=== PATIENT | male | born 1955 | race Caucasian/White ===

== ENCOUNTER 2019-08-15 09:05 | Day surgery (SDC) | payer MEDICARE, BC, SELFPAY ==
--- NOTE | 2019-08-14 11:51 | ECG_ITS ---
Measurements Intervals [place] Rate: 69 P: 161 IL: 114 QRS: 222 QRSD: 202 T: 50 QT: 441 QTc: 476 ELECTRONIC ATRIAL PACEMAKER ELECTRONIC VENTRICULAR PACEMAKER ABNORMAL RHYTHM ECG Compared to ECG 05/22/2019 11:42:27 No significant changes Electronically Signed On 08-14-2019 20:13:11 FIRE PILOT by Hussain Haynes M.D. [id number]
[2019-08-14 12:06] VITALS: BMI 29.1
--- NOTE | 2019-08-14 12:32 | ANES.PREANES ---
Pre-Anesthetic Assessment Pre-Anesthetic Assessment: Height/Weight: Height 1.83 m Weight 97.522 kg Preop Diagnosis: Left CTS Proposed Procedure: Operation Date: 08/15/19 11:45 Proposed Procedures p Median Nerve Release(Left) - Jamar Woodward MD Social: Social History: No alcohol and No tobacco Exam: Pre-Anes Outpt Exam: alert, oriented x 3, clear to auscultation bilaterally and regular rate & rhythm Airway: Submandibular: WNL Cervical ROM: WNL MP: 2 Pulmonary: Pulmonary: None reported CV/HEM: CV/HEM: HTN : : None reported Hepatic: Hepatic: None reported GI: GI: None reported Metabolic: Metabolic: None reported Musc/skel: Musc/skel: Lower Back Pain and OA/DJD Neuropsych: Neuropsych: None reported Anesthetic Plan: ASA status: III Anesthesia: Anesthesia Evaluation and MAC Risk of > 500 ml blood loss (7ml/kg in children): No Data Anesthesia Cardiac Studies: No Data to Display
[2019-08-15 09:36] VITALS: BP 136/86; PULSE 79; RESP 18; TEMP 36.3; O2SAT 93
[2019-08-15] MEDS: sodium chloride 0.9% 1,000 ML 30 ML IV (10:34)
--- NOTE | 2019-08-15 11:17 | P.OP_ITS ---
Operative Report Date of procedure: 08/15/19 Pre-op Diagnosis: Median nerve entrapment at left wrist Post-op diagnosis: same Procedure Done: Open release of the median nerve at the left wrist. Pathology: none sent Surgeon: Jamar Woodward Anesthesia: MAC and Local Estimated blood loss: Minimal Complications: None. Condition: stable Disposition: same day Brief History: The patient is a 63-year-old male with symptomatic, electrodiagnostically confirmed median nerve entrapment at the left wrist. Electrodiagnostic studies suggested moderate-severe nerve entrapment. Conservative management failed to provide adequate lasting symptom relief. He had previously undergone open release of the median nerve at the right wrist, with good results. After review of the diagnostic and treatment options with the risks/potential benefits/rationale for each, the patient requested to proceed with open release of the median nerve at the left wrist. Procedure: After routine preoperative evaluation and informed consent were obtained, the patient was taken to the Operating Room and positioned supine on the operating table. Anesthesia personnel monitored the patient, and maintained intravenous sedation. The left upper extremity was extended on an arm board. The proposed skin incision was marked with a sterile skin marker, beginning near the wrist crease and extending distally along portions of a palmar crease to the mid palm. The left upper extremity was scrubbed with Betadine and prepped with DuraPrep from the fingertips to the axilla. A sterile stockinette was placed over the left upper extremity. The patient was draped with sterile towels and drapes. An opening was fashioned in the sterile stockinette over the palmar aspect of the left hand. Ioban surgical barrier was applied. The proposed incision site was infiltrated with 1% Xylocaine with Epinephrine. A skin incision was made with a sharp knife and carried down into the subcutaneous ti ssues. The thickened transverse carpal ligament was identified and divided over the course of the median nerve in the palm. The nerve was directly visualized as the ligament was divided. Decompression was extended distally until the palmar fat pad was encountered. Proximally, the decompression was extended above the wrist crease utilizing fine Metzenbaum scissors. Decompression was verified to be adequate for a distance of greater than 2 centimeters proximal to the wrist crease. Mild epineural adhesions were identified and addressed with limited epineurolysis. At the completion of the decompression, there was no evidence of residual impingement or tethering of the median nerve at the surgical site. The wound was then copiously irrigated with sterile saline and antibiotic irrigation. Hemostasis was ensured with the bipolar electrocautery. Wound closure was performed as a single layer utilizing 4-0 Nylon in a simple interrupted fashion. Antibiotic ointment was placed along the incision line. A bulky hand dressing was fashioned utilizing Kerlix fluffs, a Kerlix wrap, and an UDAY/elastic bandage. The patient was transferred onto the transport cart and returned to the Ambulatory Surgery Area for discharge home, as per the Ambulatory Surgery protocol. The patient tolerated the procedure well. COUNTS: All sponge, needle and instrument counts were correct at the completion of the procedure.
--- NOTE | 2019-08-15 14:42 | PM.HPUD ---
H&P update H&P Update: DATE OF SURGERY/PROCEDURE: 08/15/19 DATE H&P PERFORMED: 07/18/19 H&P UPDATE INFORMATION: H&P completed within last 30 days, No changes to prior documentation and H&P to be scanned into chart PREOP DIAGNOSIS: Median nerve entrapment at left wrist PLANNED PROCEDURE: Operation Date: 08/15/19 13:15 Proposed Procedures Open Median Nerve Release at Left wrist Full H&P Medications/Allergies: Current Medications: Current Medications Generic Name Dose Route Start Last Admin Trade Name Freq PRN Reason Stop Dose Admin Sodium Chloride 1,000 mls @ 30 ml s/hr 08/15/19 09:30 08/15/19 10:34 Sodium Chloride 0.9% IV 08/16/19 09:29 30 mls/hr .Q24H YOVANI Administration
--- NOTE | 2019-08-15 14:59 | PM.OP2 ---
 Brief Operative Note: Date of procedure: 08/15/19 Pre-op diagnosis: median nerve entrapment at left wrist Post-op diagnosis: same Procedure Done: Open release of median nerve at left wrist Surgeon: Jamar Woodward Estimated blood loss (mL): 10 Complications: None. Post-op Plan: Home per Ambulatory Surgery protocol. Condition: stable Disposition: same day Coding Level of Care Code Acute Music Therapy Specialist for Liudmila Eason
[2019-08-15] MEDS: neomycin-poly-bacitracin oint 28 gm 1 APPLIC TOPICAL (15:20)
[2019-08-15 15:47] VITALS: BP 118/71; PULSE 67; RESP 18; TEMP 36.9; O2SAT 94
[2019-08-15] MEDS: TRAMadol 50 mg Tablet PO (16:19)
[2019-08-15 16:21] VITALS: BP 116/77; PULSE 67; RESP 18; O2SAT 96
== END 2019-08-15 16:41 | disposition home or self-care (01) ==
PROVIDERS: Family Provider Family Medicine; PCP Family Medicine; Visit Provider Specialist
PROC: (CPT 64721; principal; 2019-08-15 10:50)
DX: G56.02 Carpal tunnel syndrome, left upper limb (principal); Z79.52 Long term (current) use of systemic steroids; Z79.1 Long term (current) use of non-steroidal anti-inflammatories (NSAID); Z79.891 Long term (current) use of opiate analgesic; Z79.82 Long term (current) use of aspirin; I48.91 Unspecified atrial fibrillation; Z95.0 Presence of cardiac pacemaker; G89.29 Other chronic pain; M54.9 Dorsalgia, unspecified
CPT/HCPCS: 64721; 12345; 93005; 96365; J0690; J2001; J2704; J3010; J3490; J7030

== ENCOUNTER 2019-10-30 06:00 | Outpatient (RCR) | payer MEDICARE, BC, SELFPAY | END 2019-11-20 23:00 | disposition home or self-care (01) | LOC: SOT 06:00 | PROVIDERS: Family Provider Family Medicine; PCP Family Medicine; Referring Provider Specialist; Visit Provider Specialist | DX: Z47.89 Encounter for other orthopedic aftercare (principal) | CPT/HCPCS: 97035; 97110; 97140; 97165 ==

== ENCOUNTER 2020-01-13 08:51 | Outpatient (CLI) | payer MEDICARE, BC, SELFPAY ==
--- NOTE | 2020-01-13 08:54 | USCV_ITS ---
Pramod Domínguez Age: 64 Gender: M : 1955 Exam Date: 01/13/2020 09:19 Ordering Phys: Hussain Haynes MD ([email or web address]) Technologist: Zelda Lopez [place] [facility] [place]: DOT clearance BP: 122 / 69 HR: 69 Rhythm: Sinus Technical Quality: Adequate MEASUREMENTS (Male / Female) Normal Values 2D ECHO LV Diastolic Diameter PLAX 4.8 cm 4.2 - 5.9 / 3.9 - 5.3 cm LV Systolic Diameter PLAX 3.8 cm IVS Diastolic Thickness 1.4 cm 0.6 - 1.0 / 0.6 - 0.9 cm IVS Systolic Thickness 1.2 cm LVPW Diastolic Thickness 2.0 cm 0.6 - 1.0 / 0.6 - 0.9 cm LVPW Systolic Thickness 2.0 cm LVOT Diameter 2.1 cm LV Ejection Fraction 2D Teich 42.1 % LV Ejection Fraction MOD 2C 46.9 % LV Ejection Fraction 2C AL 50.2 % LA Diameter 4.3 cm LA Width 4.3 cm LA Height 2.8 cm RA Width 3.6 cm RA Height 3.6 cm Aorta at Sinotubular Diameter 3.6 cm M-MODE LV Diastolic Diameter MM 7.9 cm 4.2 - 5.9 / 3.9 - 5.3 cm LV Systolic Diameter MM 7.7 cm LV Ejection Fraction MM Teich 5.0 % IVS Diastolic Thickness MM 1.1 cm 0.6 - 1.0 / 0.6 - 0.9 cm IVS Systolic Thickness MM 1.7 cm LVPW Diastolic Thickness MM 1.0 cm 0.6 - 1.0 / 0.6 - 0.9 cm LVPW Systolic Thickness MM 1.4 cm Aortic Annulus Diameter 3.6 cm LA Ao Ratio MM 1.2 MV E Point Septal Separation 2.2 cm DOPPLER AV Peak Velocity 104.0 cm/s LVOT Peak Velocity 94.0 cm/s AV Area Cont Eq vti 2.9 cm squared AV Area Cont Eq pk 3.1 cm squared MV Area PHT 5.1 cm squared Mitral E to A Ratio 0.8 MV E' Velocity 9.0 cm/s Mitral E to MV E' Ratio 9.0 Mitral E to LV E' Lateral Ratio 7.0 Mitral E to LV E' Septal Ratio 12.7 TR Peak Velocity 147.0 cm/s TR Peak Gradient 8.6 mmHg TV Peak E Velocity 83.0 cm/s Right Atrial Pressure 3.0 mmHg Pulmonary Artery Systolic Pressu 11.6 mmHg PV Peak Velocity 45.0 cm/s RV Acceleration Time 0.1 s RV Ejection Time 0.3 s RV AcT/ET 0.4 FINDINGS Left Ventricle Normal left ventricular cavity size. Moderately decreased left ventricular systolic function. Left ventricular ejection fraction is estimated at 42 %. There is mid to distal anterior septal and apical hypokinesis.Grade I/IV diastolic dysfunction (abnormal relaxation filling pattern), normal to mildly elevated filling pressures. Right Ventricle Normal right ventricular size. Normal right ventricular systolic pressure. Catheter/pacemaker wire visualized in the right ventricle. Right Atrium Normal right atrial size. Catheter/pacemaker wire in the right atrial cavity. Left Atrium The left atrium is normal in size. Mitral Valve Structurally normal mitral valve without significant stenosis or prolapse. There is no mitral regurgitation. Aortic Valve Moderate aortic valve calcification. No aortic valve stenosis. Mild aortic valve regurgitation. Tricuspid Valve Structurally normal tricuspid valve without significant stenosis or regurgitation. Pulmonary artery systolic pressure is normal. Pulmonic Valve Structurally normal pulmonic valve without significant stenosis. There is no pulmonic regurgitation. Pericardium Normal pericardium without effusion. Aorta Normal ascending aorta dimension. CONCLUSIONS 1-Normal left ventricular cavity size. Moderately decreased left ventricular systolic function. Left ventricular ejection fraction is estimated at 42 %. There is mid to distal anterior septal and apical hypokinesis.Grade I/IV diastolic dysfunction (abnormal relaxation filling pattern), normal to mildly elevated filling pressures. 2-Normal right ventricular size. Normal right ventricular systolic pressure. Catheter/pacemaker wire visualized in the right ventricle. 3-Normal right atrial size. Catheter/pacemaker wire in the right atrial cavity. 4-There is no pericardial effusion. 5-No significant valve abnormalities. 6-Pulmonary artery systolic pressure is within normal limits. 7-Right atrial pressure is around 5 mm of mercury. 8-When compared to the prior echocardiogram dated may 17, 2017 left ventricle ejection fraction has moderately reduced from normal 55% to 42% . Hussain Haynes MD (Electronically Signed) Final Date: 13 January 2020 18:08 S
== END 2020-01-13 08:52 | disposition home or self-care (01) ==
PROVIDERS: PCP Family Medicine; Visit Provider Internal Medicine Cardiovascular Disease
DX: Z00.00 Encounter for general adult medical examination without abnormal findings (principal); I51.81 Takotsubo syndrome; Z95.0 Presence of cardiac pacemaker
CPT/HCPCS: 93306

== ENCOUNTER 2020-02-03 07:08 | Outpatient (CLI) | payer MEDICARE, BC, SELFPAY ==
--- NOTE | 2020-02-03 07:33 | NMCV_ITS ---
NM rafita perf SPECT r/s* [id number] Pramod Domínguez Age: 64 Gender: M : 1955 Exam Date: 02/03/2020 08:34 Ordering Phys: Hussain Haynes MD ([email or web address]) Technologist: EDITA Sol Exam Location: [facility] - [place] Indications: PRESENCE OF CARDIAC PACEMAKER STRESS TEST [facility] IMAGE PROTOCOL Rest/Stress 1 Exercise Day Radiopharmaceutical Dose (mCi) Administration Site Administered by Rest: Tc-99m 11.0 IV EDITA Turcios Sestamibi Stress:Tc-99m 32.9 IV EDITA Turcios Sestamibi Rest: 03-Feb-2020 60 Discovery 630 Stress: 03-Feb-2020 30 Discovery 630 Radiopharmaceutical was injected at 87 % maximum heart rate. Images obtained in supine and prone position. SPECT RESULTS Technical Quality: Excellent Raw Data Analysis: Normal Image Corrections: No attenuation or motion correction applied Summed Stress Score: 4 Summed Rest Score: 5 Summed Difference Score: 0 PERFUSION FINDINGS Medium-sized area of fixed perfusion defect noted in basal to distal inferoseptal and basal inferolateral wall suggestive of old myocardial infarction versus scarring. Small area of mild to moderate reversibility noted in basal to mid anterior wall suggestive of ischemia in LAD territory. Clinical correlation advised. FUNCTIONAL RESULTS (calculated via Gated SPECT) Stress Image LV EF (%): 34 Stress EDV (mL):172 TID: 1.04 Stress ESV (mL):113 Rest Image LV EF (%): 34 FUNCTIONAL FINDINGS: Global hypokinesis with regional inferior wall akinesis IMPRESSIONS Small area of moderate ischemia noted in basal to mid anterior wall suggestive of lesion in the LAD territory. Medium-sized area of old myocardial infarction versus scarring noted in basal to distal inferoseptal wall of the left ventricle without jaylan-infarct ischemia. EKG segment will be documented separately. Hussain Haynes MD (Electronically Signed) Final Date: 03 February 2020 17:14 S
--- NOTE | 2020-02-03 07:33 | ECG_ITS ---
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 Interpretive Statements NOTE: Please note that this is the electrocardiogram portion of the Lexiscan/Sestamibi stress test. The perfusion scan will be documented separately. DATA: Baseline heart rate was 76 beats per minute. Baseline blood pressure was 142/77 millimeters of mercury. Target heart rate was 154. Maximum heart rate achieved was 151. which was 98 % of the predicted target heart rate. Maximum blood pressure was 142/77 millimeters of mercury. The reason for ending the test was completion of the protocol. The patient did not experience any symptoms. ELECTROCARDIOGRAM: BASELINE: Atrial fibrillation, paced rhythm EXERCISE: After Lexiscan injection, no ST-T changes suggestive of ischemic noted. No arrhythmia noted. CONCLUSION: Please note due to baseline abnormality of the EKG specificity and sensitivity of the EKG portion of LexiScan MIBI stress test will be low 1. EKG not suggestive of ischemia 2. Lexiscan injection unremarkable. 3. Perfusion scan will be documented separately. Electronically Signed On 02-04-2020 19:12:24 CDT by Hussain Haynes M.D. [email or web address]
[2020-02-03 07:34] VITALS: BMI 29.5
[2020-02-03 10:34] VITALS: BP 142/77; PULSE 82
== END 2020-02-03 07:09 | disposition home or self-care (01) ==
PROVIDERS: PCP Family Medicine; Visit Provider Internal Medicine Cardiovascular Disease
DX: Z95.0 Presence of cardiac pacemaker (principal); I42.9 Cardiomyopathy, unspecified; I10 Essential (primary) hypertension; I48.91 Unspecified atrial fibrillation; I25.9 Chronic ischemic heart disease, unspecified
CPT/HCPCS: 78452; 93017; A9500

== ENCOUNTER → 2020-02-24 13:25 | Outpatient (BNVA) | payer MEDICARE, BC, SELFPAY | PROVIDERS: PCP Family Medicine; Visit Provider Internal Medicine | DX: Z01.812 Encounter for preprocedural laboratory examination (principal); Z11.59 Encounter for screening for other viral diseases | CPT/HCPCS: 87635 ==

== ENCOUNTER 2020-02-26 10:44 | Observation (INO) | payer MEDICARE, BC, SELFPAY ==
[2020-02-24 15:08] LABS: Basophils # 0.1 10^3/uL (0.0-0.1); Basophils % 0.7 %; Eosinophils # 0.3 10^3/uL (0.0-0.8); Eosinophils % 4.6 %; Hematocrit 43.1 % (42.0-52.0); Hemoglobin 13.4 g/dL (11.7-16.6); Lymphocytes # 1.5 10^3/uL (0.8-4.8); Lymphocytes % 21.6 %; Mean Corpuscular HGB Conc 31.1 g/dL (30.0-36.0); Mean Corpuscular Hemoglobin 28.3 pg (28.0-34.0); Mean Corpuscular Volume 91.1 fL (80-94); Monocytes # 0.5 10^3/uL (0.2-0.9); Monocytes % 7.4 %; Neutrophils % 65.4 %; Nucleated Red Blood Cells % 0 %; Platelet Count 260 10^3/cmm (130-400); Red Blood Count 4.73 10^6/uL (4.1-5.3); Red Cell Distribution Width 12.2 % (12.1-15.1); White Blood Count 6.9 10^3/uL (4.0-10.0)
[2020-02-24 15:50] LABS: INR 0.94 (0.83-1.21); Prothrombin Time (Patient) 12.8 Seconds (12.0-15.1)
[2020-02-24 16:06] LABS: Anion Gap 14.9 (5-19); Blood Urea Nitrogen 19 mg/dL (8-23); Carbon Dioxide 29 mmol/L (22-29); Chloride 104 mmol/L (98-107); Glomerular Filtration Rate 74.8 mL/min (90-130); Glucose 102 mg/dL (65-115); Osmolality Calculated 293 mOsm/kg (285-295); Potassium 4.9 mmol/L (3.5-5.1); Sodium 143 mmol/L (136-145)
[2020-02-25 12:26] VITALS: BMI 29.4
[2020-02-26] MEDS: diphenhydrAMINE 50 mg Capsule PO (07:38)
[2020-02-26 07:44] VITALS: BP 133/80; PULSE 60; RESP 17; TEMP 36.9; O2SAT 96
--- NOTE | 2020-02-26 08:30 | XACV_ITS ---
Ht: 183 cm Wt: 98 kg BSA: 2.26 m2 Gender: Male : 1955 Any Known Allergies: Morphine Exam Priority: Routine Procedure(s): Procedure Description: Diagnostic procedure Procedure Description: Coronary Angiography Diagnostic Cath Status: Elective Diagnostic Findings LM has 0% stenosis. CX has 0% stenosis. RCA has 0% stenosis. pLAD: Moderate 50% stenosis, NATASHA: 3 flow. Coronary angiography shows right dominance. Conclusions There is mild coronary artery disease with one vessel disease. 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 Recommendations Continue current medical management and risk factor modification. Diagnostic RX Recommendation: medical therapy and/or counseling Pressures Phase:Rest AO : 78 mmHg / 62 mmHg ( 68 mmHg ) @ 4:38:00 AM Clinical Evaluation EBL: 5mL-10mL Procedural Details Pre-Procedure Time Out. Identified patient by full name and date of as verbalized by the patient/guarantor. Does the consent match the physician's order: Yes. Accurate & Complete Informed Consent: Yes. Inpatient/Outpatient History & Physical on Chart: Yes. If H&P is completed, is and addenduem needed: No; If yes, is the addendum complete: N/A. Relevant Radiology Images available: Yes. Pre-op teaching completed and patient verbalized understanding. The risks, benefits, and alternatives of sedation and/or procedure were discussed by physician. The patient agrees to continue. Dr. Bueno will be scrubbing in with Dr. Haynes and is present in the room. Procedure started. Correct patient, site and procedure confirmed by cath team. PERRLA. Strong, equal hand chair spring assembler bilaterally. Lungs clear x 5 lobes. IV Site on Arrival: 20 gauge in the right anticubital. IV Fluids: 0.9% NaCl at KVO. 0 mL infused prior to mobile lab technician. Pre Procedural Pulses: bilateral dorsalis pedis was 3+. Pre Procedural Pulses: bilateral posterior tibial was 3+. Pre Procedural Pulses: bilateral radial was 3+. Oxygen started at 2liters/min via nasal canula. bilateral groins was prepped with chloroprep then draped in the usual sterile fashion. right radial was prepped with chloroprep then draped in the usual sterile fashion. Physician notified. Baseline sample Acquired. HR: 85 BPM. Immediate Pre-Procedure Time Out. Correct Patient: Yes; Correct Procedure: Yes; Correct Site: Yes; Correct Patient Position: Yes; Correct Supplies: Yes; Dried Flammable Prep: Yes; Blood Products Available: No;. Lidocaine 1% infiltrated to the right radial. Arterial access obtained. Dr. Haynes arrived. A 6 brazilian TIG catheter in over wire. Catheter out. A 6 brazilian JL3.5 catheter in over wire. Multiple views taken of left coronary artery. A 6 brazilian JR5 catheter in over wire. A 6 brazilian 3DRC catheter in over wire. A 5 brazilian AR II MOD catheter in over wire. Multiple views taken of right coronary artery. TR band placed. Hemostasis obtained. A TR Band was successful obtaining hemostatsis at the Right Radial artery insertion site. Post Procedure: Pulses reassessed and unchanged. No VTE prophylaxis required. Vital chart was stopped. Medication's Wasted: Lidocaine 1% = 18 mL. Medication's Wasted: Heparin = 1000 units. Medication's Wasted: Nitro = 49.8 mg. Medication's Wasted: Other = Versed 1 mg. Medication's Wasted: Other = Fentanyl 50 mcg. Total IV fluids: 68.4 mL. Contrast type used: Visipaque 320 mgI/mL, 500 mL bottle. Post-op diagnosis: CAD. Complications: None. Estimated blood loss: 5mL-10mL. [facility] Clinical Fraility Score: 3: Managing Well. Data Analytics Architect Indications: Cardiomyopathy. Data Analytics Architect Indications: Stable Known CAD. Chest Pain Symptom Assessment: Atypical Angina. Cardiovascular Instability: No. Procedure completed. Patient transferred by wheelchair to 1st floor. Site: Right Radial artery Sheath Size: 6 Fr Hemostasis Method: TR Band Hemostasis Success: Successful Procedure Medications Start: 9:18 AM Stop: 9:18 AM Medication: Versed Amount: 1 mg Route: I.V. Start: 9:18 AM Stop: 9:18 AM Medication: Fentanyl Amount: 50 mcg Route: I.V. Start: 9:23 AM Stop: 9:23 AM Medication: Heparin Amount: 5000 units Route: I.V. Start: 9:29 AM Stop: 9:29 AM Medication: Versed Amount: 1 mg Route: I.V. Start: 9:29 AM Stop: 9:29 AM Medication: Fentanyl Amount: 50 mcg Route: I.V. I, the attending physician, have reviewed and verified all procedure medications. Yes, all medications given per verbal order History/Risk Factors Hypertension: Yes Dyslipidemia: Yes Peripheral Arterial Disease (PAD): No Myocardial Infarction (RI): Yes Obesity: No Renal Disease: No Tobacco Use: Never Prior Interventions PCI: No CABG: No Valve Surgery: No Report Signatures Finalized by:Hussain Haynes MD on 03/08/2020 5:48:27 PM
[2020-02-26 10:18] VITALS: BP 114/81
[2020-02-26 10:30] VITALS: BP 98/49; PULSE 81; O2SAT 95
[2020-02-26 10:45] VITALS: BP 124/75; PULSE 70; O2SAT 93
[2020-02-26 11:22] VITALS: PULSE 81; O2SAT 97
[2020-02-26] MEDS: aspirin 81 mg EC Tablet PO (11:32)
--- NOTE | 2020-02-26 11:48 | W.PM.OPSUD ---
Surgery/Procedure H&P Update DATE OF PROCEDURE: February 26, 2020 DATE H&P PERFORMED: 07/13/19 H&P UPDATE INFORMATION: I have reviewed H&P completed within last 30 days, I have examined patient prior to procedure and No changes to prior documentation PREOP DIAGNOSIS: Median nerve entrapment at left wrist PLANNED PROCEDURE: Operation Date: 02/26/20 08:30 Proposed Procedures p Cardiac Catheterization(Left) - Hussain Haynes MD PHYSICAL EXAM: alert, oriented x 3 and clear to auscultation bilaterally AIRWAY EVAL/ANESTHESIA PLAN: ASA II, Risks, benefits & alternatives of sedation and/or procedure discussed and Patient agrees to continue as planned
[2020-02-26 13:32] VITALS: BP 124/75; PULSE 81; RESP 17; TEMP 36.9; O2SAT 97
== END 2020-02-26 14:02 | disposition home or self-care (01) ==
LOC: CSU 10:45
PROVIDERS: Internal Medicine; Admitting Provider Internal Medicine Cardiovascular Disease; PCP Family Medicine; Visit Provider Internal Medicine Cardiovascular Disease
DX: I25.10 Atherosclerotic heart disease of native coronary artery without angina pectoris (principal); I10 Essential (primary) hypertension; E78.5 Hyperlipidemia, unspecified; I25.2 Old myocardial infarction
CPT/HCPCS: 12345; 36415; 80048; 85025; 93454; C1769; C1887; C1894; G0378; J1644; J2250; J3010; J3490; J7030; Q0163; Q9967

== ENCOUNTER → 2020-03-04 08:55 | Outpatient (BNVA) | payer MEDICARE, BC, SELFPAY | PROVIDERS: PCP Family Medicine; Visit Provider Nurse Practitioner Family | DX: I42.9 Cardiomyopathy, unspecified (principal) | CPT/HCPCS: 80048 ==

== ENCOUNTER → 2020-06-17 12:24 | Outpatient (BNVA) | payer MEDICARE, SELFPAY | PROVIDERS: PCP Family Medicine; Visit Provider Surgery | DX: Z11.59 Encounter for screening for other viral diseases (principal); R19.4 Change in bowel habit | CPT/HCPCS: 87635 ==

== ENCOUNTER 2020-06-23 07:32 | Day surgery (SDC) | payer MEDICARE, SELFPAY ==
[2020-06-19 10:15] VITALS: BMI 29.1
--- NOTE | 2020-06-23 08:00 | W.PM.OPSUD ---
Surgery/Procedure H&P Update DATE OF PROCEDURE: June 23, 2020 DATE H&P PERFORMED: 06/09/20 H&P UPDATE INFORMATION: I have reviewed H&P completed within last 30 days, I have examined patient prior to procedure, No changes to prior documentation and Changes to prior documentation as noted here PREOP DIAGNOSIS: Screening PLANNED PROCEDURE: Operation Date: 06/23/20 08:45 Proposed Procedures p Colonoscopy 24333 r19.4(Not Applicable) - Peterson Farris MD
[2020-06-23 08:06] VITALS: BP 109/80; PULSE 69; RESP 18; TEMP 36.2; O2SAT 97
[2020-06-23] MEDS: sodium chloride 0.9% 1,000 ML 30 ML IV (08:26)
--- NOTE | 2020-06-23 08:34 | ANES.PREANE2 ---
Pre-Anesthetic Assessment Pre-Anesthetic Assessment: Height/Weight: Height 1.83 m Weight 97.522 kg Temp Pulse Resp BP Pulse Ox 97.2 F L 69 18 109/80 97 06/23/20 08:06 06/23/20 08:06 06/23/20 08:06 06/23/20 08:06 06/23/20 08:06 Preop Diagnosis: Screening Proposed Procedure: Operation Date: 06/23/20 08:45 Proposed Procedures p Colonoscopy 62211 r19.4(Not Applicable) - Peterson Farris MD Familial anesthetic complications: none Was Beta Imer taken within 24 hours: N/A Last intake: Intake Last Liquid Date 06/22/20 Last Liquid Time 22:00 Last Solid Date 06/21/20 Last Solid Time 18:00 Social: Social History: No alcohol and No tobacco Exam: Pre-Anes Outpt Exam: alert, oriented x 3, clear to auscultation bilaterally and regular rate & rhythm Airway: MP: 2 Dentition: Caps CV/HEM: CV/HEM: Afib, CHF and HTN Comments: pacemaker/ICD 02/16 echo - EF 30% 02/16 stress test showed no CAD patient can achieve > 4 METS without symptoms Metabolic: Metabolic: Hyperlipidemia Anesthetic Plan: ASA status: 4 Anesthesia: MAC Risk of > 500 ml blood loss (7ml/kg in children): No Meds/Allergies Current Medications: Current Medications Generic Name Dose Route Start Last Admin Trade Name Freq PRN Reason Stop Dose Admin Sodium Chloride 1,000 mls @ 30 ml s/hr 06/23/20 08:00 06/23/20 08:26 Sodium Chloride 0.9% IV 06/24/20 07:59 30 mls/hr .Q24H YOVANI Administration PFSH Anesthesia PFSH: Medical History Cardiomyopathy Hx of reduction of orbital fracture Hypertension Myocardial infarction Surgical History H/O neck surgery History of back surgery History of carpal tunnel release left, 08/15/2019 right, 05/23/2019 Hx of cardiac pacemaker Hx of colonoscopy Family History Mother CAD (coronary artery disease) Cancer Dementia Hyperlipidemia Hypertension Grandfather Diabetes Hyperlipidemia Hypertension Father Hyperlipidemia Hypertension Denies family history of Clotting disorder Chronic kidney disease (CKD) Anesthesia complication Bleeding disorder Family history of premature coronary artery disease Lung disease Stroke Social History Smoking and tobacco status: never smoked Alcohol intake: current Alcohol intake frequency: few times a week Household members: spouse Marital status: Current occupational status: retired History of recent travel: No Data Anesthesia Cardiac Studies: No Data to Display
[2020-06-23 09:30] VITALS: BP 96/67; PULSE 62; RESP 16; TEMP 36.1; O2SAT 93
[2020-06-23 09:47] VITALS: BP 99/70; PULSE 64; RESP 18; O2SAT 94
--- NOTE | 2020-06-23 09:57 | CT_ITS ---
WS: [id number] CT CHEST, ABDOMEN AND PELVIS WITH CONTRAST. HISTORY: RECTAL MASS TECHNIQUE: Contiguous 5 mm axial imaging performed through the chest, abdomen and pelvis with IV cont rast, oral contrast has been provided. Coronal and sagittal reformats chest. Coronal and sagittal ref ormats through the abdomen and pelvis. All CT scans at [facility] use at least one of the se dose optimization techniques: automated exposure control; mA and/or kV adjustment per patient size (includes targeted exams where dose is matched to clinical indication); or iterative reconstruction. CONTRAST: Omnipaque 300; 95 mL IV. DLP: 2136.68 mGy.cm COMPARISON: None available. Chest CT: Lungs are hyperexpanded. Benign granuloma LEFT upper lobe. No pulmonary mass or pneumonia. LEFT subclavian defibrillator and pacer apparatus is present. Normal size pulmonary artery. Mild athe rosclerosis aorta. LEFT heart chambers are slightly enlarged. Heavy calcification in the muscogee coron dionisio arteries. No mediastinal or hilar adenopathy. No pericardial or pleural effusion. Moderate increase in the thoracic spine and kyphosis. Advanced degenerative spondylitic changes. No d estructive bone lesions. Abdomen CT: Liver is normal size. Spleen is normal. Normal gallbladder and adrenal glands. Normal hunter creas. No adenopathy or ascites. Atherosclerosis aorta with no aneurysm. There is marked air distention of the colon from the recent colonoscopy. No free air. Asymmetric rect al wall thickening. There is a small amount of air extending into the rectal wall on the RIGHT which may be from a recent biopsy. Rectal wall measures up to 17 mm to the RIGHT and LEFT of midline. Pelvic CT: No ascites or free air. Normally distended urinary bladder. Prostate gland is enlarged. Posterior lumbar fusion from L4 to S1. No osteoblastic or osteolytic bone disease. Bone graft site fr om the RIGHT ilium. CT/CT chest abd pel w con* IMPRESSION: 1. Rectal mucosal thickening consistent with the rectal mass seen on colonosco py. Rectal wall measures up to 17 mm. 2. No ascites or adenopathy identified. 3. No metastatic disease to the liver, adrenal glands or lungs. 4. Atherosclerosis aorta and muscogee coronary arteries.
--- NOTE | 2020-06-23 10:15 | PC.NURSE ---
PT FINISHED DRINKING CONTRAST AT 1010. LABS DRAWN AND SENT ALSO.
[2020-06-23 11:34] LABS: Blood Urea Nitrogen 15 mg/dL (8-23); Glomerular Filtration Rate 74.8 mL/min (90-130)
[2020-06-23] MEDS: iohexol 300 mg/mL 100 mL Btl IV (12:22)
--- NOTE | 2020-06-23 13:37 | ANE.PACU2 ---
Inpatient post-anesthesia follow up: Airway intact: Yes Vital signs: Temperature 97 F Pulse Rate 64 Respiratory Rate 18 Blood Pressure 99/70 Pulse Oximetry 94 Oxygen Delivery Me thod Room Air Oxygen Flow Rate 2 Fraction of Inspir ed Oxygen Hydration adequate: Yes Nausea and vomiting: No Pain level: 2 Mental status: Baseline
[2020-07-06 10:55] LABS: Miscellaneous Test See Scanned Lab Rpt
== END 2020-06-23 12:15 | disposition home or self-care (01) ==
PROVIDERS: PCP Family Medicine; Visit Provider Surgery
PROC: 0DJD8ZZ Inspection of Lower Intestinal Tract, Via Natural or Artificial Opening Endoscopic (ICD-10-PCS; CPT 45378; principal; 2020-06-23 08:45)
DX: Z12.11 Encounter for screening for malignant neoplasm of colon (principal); C20 Malignant neoplasm of rectum; K64.8 Other hemorrhoids; I48.91 Unspecified atrial fibrillation; I11.0 Hypertensive heart disease with heart failure; I50.9 Heart failure, unspecified; Z95.810 Presence of automatic (implantable) cardiac defibrillator; E78.5 Hyperlipidemia, unspecified; I42.9 Cardiomyopathy, unspecified; I25.2 Old myocardial infarction; Z82.49 Family history of ischemic heart disease and other diseases of the circulatory system; Z80.9 Family history of malignant neoplasm, unspecified; Z79.82 Long term (current) use of aspirin; Z79.1 Long term (current) use of non-steroidal anti-inflammatories (NSAID)
CPT/HCPCS: 12345; 36415; 45380; 71260; 74177; 82378; 82565; 84520; 88305; 88341; 88342; J2704; J7030; Q9967

== ENCOUNTER 2020-07-30 05:47 | Outpatient (RCR) | payer MEDICARE, SELFPAY ==
[2020-07-14 15:59] LABS: Basophils % 0.6 %; Eosinophils # 0.4 10^3/uL (0.0-0.8); Eosinophils % 5.5 %; Hematocrit 41.3 % (42.0-52.0); Lymphocytes # 1.9 10^3/uL (0.8-4.8); Mean Corpuscular HGB Conc 31.5 g/dL (30.0-36.0); Mean Corpuscular Hemoglobin 27.8 pg (28.0-34.0); Mean Corpuscular Volume 88.4 fL (80-94); Mean Platelet Volume 9.4 fL (7.4-10.4); Monocytes # 0.6 10^3/uL (0.2-0.9); Monocytes % 8.6 %; Neutrophils # 3.97 10^3/uL (1.8-7.7); Neutrophils % 57.2 %; Nucleated Red Blood Cells % 0 %; Platelet Count 260 10^3/cmm (130-400); Red Blood Count 4.67 10^6/uL (4.1-5.3); Red Cell Distribution Width 12.4 % (12.1-15.1); White Blood Count 6.9 10^3/uL (4.0-10.0)
[2020-07-14 16:37] LABS: Carcinoembryonic Antigen 1.5 ng/mL (0.0-4.7)
[2020-07-14 16:50] LABS: Alanine Aminotransferase 9 U/L (0-41); Albumin Level 4.1 g/dL (3.5-5.2); Alkaline Phosphatase 54 IU/L (40-130); Anion Gap 12.7 (5-19); Aspartate Amino Transferase 13 U/L (0-40); Blood Urea Nitrogen 25 mg/dL (8-23); Calcium 9.4 mg/dL (8.5-10.5); Carbon Dioxide 27 mmol/L (22-29); Chloride 105 mmol/L (98-107); Globulin 2.8 g/dL (1.3-4.6); Glomerular Filtration Rate 84.4 mL/min (90-130); Glucose 125 mg/dL (65-115); Osmolality Calculated 298 mOsm/kg (285-295); Potassium 3.7 mmol/L (3.5-5.1); Sodium 141 mmol/L (136-145); Total Bilirubin 0.3 mg/dL (0.15-1.2); Total Protein 6.9 g/dL (6.6-8.7)
--- NOTE | 2020-07-15 10:32 | N.ONRAD NP_ITS ---
Radiation Oncology Consult Patient: Pramod Domínguez MR#: [id number] : 1955 Attending Physician: Yariel Pelayo M.D. Date of Service: 07/15/2020 Pramod Domínguez was seen in consultation this morning for evaluation regarding potential pelvic radiotherapy for the management of his recently diagnosed rectal cancer. He presented abdominal pain and change in bowel habits (5-6 bowel movements per day with nighttime defecation) to his primary care physician. A fecal occult blood test was negative during this visit. He was referred to Peterson Farris M.D. who performed a colonoscopy on May by Peterson Farris M.D. identified a circumferential mass 8 cm from the anal verge. A biopsy of the mass diagnosed a moderately differentiated invasive adenocarcinoma. Mismatch repair studies were identified intact nuclear expression of MLH1, MSH2, MSH6, and PMS2, respectively. A throacoabdominopelvic CT scan ordered on June 23, 2020 revealed wall thickening of the rectum without pathologically enlarged pelvic lymph nodes. The initial carcinoembryonic antigen was 2 ng/mL. An MR of the rectum could not be obtained secondary to the patient's cardiac defibrillator. He was referred to Tarun Grover M.D. a colorectal surgeon in [place], [place] who recommended neoadjuvant chemoradiotherapy. The patient presents today for discussion concerning pelvic radiotherapy. The patient's past medical history is significant for cardiomyopathy, hypertension, and myocardial infarction. His previous surgical interventions include cervical and lumbar fusion, cardiac pacemaker placement, carpal tunnel release (lateral), and orbital fracture reduction. I have reviewed the patient's medication profile which is available in the electronic medical record. He described drug allergies to erythromycin (vomiting) and morphine (urticaria). The patient's family history was unremarkable for gastrointestinal malignancies. The patient was accompanied to this consultation by his . He denied a tobacco habit and described occasional alcohol intake (2-3 times weekly). On review of systems, he did not report any constitutional complaints including fevers of unknown origin or unintentional weight loss. There were no head neck complaints including diplopia, tinnitus, epistaxis, or dysphagia. He denied any cardiopulmonary symptoms such as angina, cough, or palpitations. On gastrointestinal review, he reported abdominal pain, increased stool frequency, nocturnal diarrhea, and decreased stool caliber. There were no genitourinary complaints such as dysuria or hematuria. He did not report any musculoskeletal complaints including bone pain or muscle weakness. There were no neurological symptoms such as headaches, paresthesias, or seizures. On physical examination, the patient has an ECOG performance status of 0. The temperature was 97.8???F. The blood pressure was 115/74 mmHg. The pulse was 70 bpm and the respiratory rate of was 18 breaths per minute. The head was normocephalic and atraumatic. Ophthalmoscopy identified bilateral red reflexes with sharp fundi visualized. Otoscopy revealed light reflexes upon tympanic membranes. Rhinoscopy exhibited non-inflamed turbinates. The oral cavity had moist mucous membranes and no oropharyngeal exudate was present. There was no cervical adenopathy or thyromegaly. Normal fremitus was noted with resonance to percussion elicited. Bronchovesicular breath sounds were auscultated in the posterior lung miguel. Cardiac sounds were regular in rate and rhythm. No auscultated gallops or murmurs present. No JVD noted. The abdomen had active bowel sounds. No tenderness to palpation. No evidence of organomegaly. There were no external hemorrhoids present. Digital rectal exam identified a virtually circumferential, fixed lesion that was palpable approximately 5 cm from the anal verge. There was no muscle weakness upon testing nor any tenderness to deep palpation along the axial skeleton. Cranial nerves II through XII were intact. No sensory deficits. Normal reflexes noted. Gait was normal. In summary, the patient presented abdominal pain and change in bowel habits (5-6 bowel movements per day with nighttime defecation). A colonoscopy performed on May by Peterson Farris M.D. identified a circumferential mass 8 cm from the anal verge. Biopsy of the mass diagnosed a moderately differentiated invasive adenocarcinoma. Mismatch repair studies were pending at the time of this consultation. A throacoabdominopelvic CT scan ordered on June 23, 2020 revealed wall thickening of the rectum without pathologically enlarged pelvic lymph nodes. . The initial carcinoembryonic antigen was 2 ng/mL. An MR of the rectum could not be obtained secondary to the patient's cardiac defibrillator. He was referred to Tarun Grover M.D. a colorectal surgeon in [place], [place] who recommended neoadjuvant chemoradiotherapy. The patient presents today for discussion concerning pelvic radiotherapy. I reviewed patient's probable AJCC stage IIA (T3N0) versus stage IIIB (T3N1) rectal cancer. He understands the uncertainty regarding his staging because of his inability to have an MR. An EUS was not recommended by colorectal surgery to complete staging. I discussed the NCCN guidelines, recommending Capecitabine or infusional 5-FU and long course radiotherapy. I also reviewed the [place] Rectal Cancer Study Group 94 trial that compared preoperative versus postoperative chemoradiotherapy in patients with clinical stage II/III rectal cancer. The trial demonstrated preoperative therapy was associate with significant reduction in local recurrence and treatment toxicity. I also discussed the K[place] study (FFCD 9203) that randomized patients with T4 or T4 rectal cancer to radiotherapy alone or preoperative concurrent chemoradiotherapy. The results supported concurrent bi-modality treatment with a decrease in local recurrence in the concurrent chemoradiotherapy arm compared to the radiotherapy arm. I canvassed the patient's case with Adelina Bundy M.D. We both agreed that an endoscopic ultrasonography to complete staging would be appropriate since the patient is unable to have an MR. I will request this procedure be performed by his colorectal surgeon prior to making final treatment decisions. If the tumor is T3 chemoradiotherapy would be recommended. In this case, I would anticipate a 5-week course of course of pelvic radiotherapy which will be implemented following CT radiotherapy planning. The potential toxicities of pelvic radiotherapy also reviewed. The patient has verbalized understanding would like proceed as recommended. Signed by: Dr. Yariel Pelayo 07/15/2020 10:31:26 AM
--- NOTE | 2020-07-16 10:49 | ONC CON_ITS ---
Dr. Bundy New Patient Note Patient: Pramod Domínguez Unit #: [id number]: 1955 Dicatated By: Adelina Bundy M.D.Date of Visit: Jul 14, 2020 Onc MED New Patient/Consult Referring Physician: Dr. THIAGO CHAPA M.D. History of Present Illness: Mr. Pramod Domínguez, is a 64-year-old gentleman with 3 months history of change in bowel habits, underwent colonoscopy on June 23, 2020 which showed circumferential malignant appearing mass at 8 cm and pathology report confirmed invasive adenocarcinoma, moderately differentiated, CEA checked on June 23, 2020 was 2.0, underwent CT scan of chest abdomen pelvis on June 23, 2020 which showed rectal mucosal thickening consistent with rectal mass no lymphadenopathy no metastatic disease to liver. Patient was referred to Dr. Grover in [facility] and his impression was tumors likely at least T3 and MRI scan of pelvis was suggested but not done because of patient has pacemaker so preop chemoradiation was recommended to downstage the tumor. Patient has no family history of colon cancer Patient has history of rheumatic fever at age 8 but no long-term cardiac complication. Status post pacemaker for AV block. Patient denies smoking or alcohol use. Past Medical History: Mr. Domínguez's medical history consists of cardiomyopathy, hypertension, and myocardial infarction. Past Surgical History: Mr. Domínguez's surgical/procedural history consists of back surgery, bilateral carpal tunnel release, colonoscopy, neck surgery, and pacemaker placement in 2013. Medications: Aspirin 1 Tablet (of 81 mg) Tablet, enteric coated Oral daily, Benazepril HCl 1 Tablet (of 10 mg) Oral daily, Carvedilol 1 Tablet (of 6.25 mg) Oral b.i.d., Crestor 1 Tablet (of 10 mg) Oral daily, hydroCHLOROthiazide 0.5 Tablet (of 25 mg) Oral daily, Naproxen 1 Tablet (of 500 mg) Oral b.i.d., traMADol HCl 1 Tablet (of 50 mg) Oral four times a day Allergies: Erythromycin Base and Morphine Derivatives. Social History: Mr. Domínguez is . Mr. Domínguez has never smoked. He drinks occasionally. He consumes 2 days/week. pt states he chewed for 10 years. he chewed 2 cans a week. Family History: Mr. Domínguez's mother at age 82: coronary artery disease, and hypertension. Mr. Domínguez's father at age 23: accident fall, and hypertension. Review Of Symptoms: Constitutional - Appetite is good and weight is stable. No fever, night sweats, or hot flashes. Energy is fair, Allergic/Immunologic - , ENMT - No sinus congestion/drainage. No mouth sores. No sore throat or difficulty swallowing, Endocrine - , Hematologic/Lymphatic - No abnormal bruising or bleeding, Respiratory - No shortness of breath. No cough. No pleuritic pain or hemoptysis, Cardiovascular - No angina pain. No palpitations, Gastrointestinal - No nausea or vomiting. No heartburn or acid reflux. No diarrhea or constipation. No blood in the stool or black stools, Genitourinary (M) - No dysuria or hematuria. No urinary frequency. No urgency or incontinence, Musculoskeletal - No joint or bone pain, Neurologic - No headache or dizziness. No numbness or tingling. No other focal neurologic symptoms, Psychiatric - No anxiety or depression. No insomnia. Vital Signs: Performed on Jul 15, 2020 09:17: 72.00 in, 213.6 lbs, 97.8 F, 70, 18, 115/74 mm(hg), 98 %, 0, Performed on Jul 15, 2020 09:17: 28.97 kg/m2 (HIGH), and Performed on Jul 14, 2020 14:45: 2.19 sq.m. Performance Status: 0 - Fully active, able to carry on all predisease activities without restrictions. (ECOG) Physical Examination: ENMT - No mouth sores, no thrush, no jaundice, Respiratory - Lungs are clear to auscultation, Cardiovascular - Regular rate and rhythm of heart, Abdomen - Soft, bowel sounds present, Extremities - No visible edema or rash. Lab/Imaging: Most recent lab results are not available for this patient. Impression: moderately differentiated, invasive adenocarcinoma involving rectum per colonoscopy done on June 23, 2020 CT scan of chest abdomen pelvis done on June 23, 2020 showed no evidence of metastatic disease and rectal mucosal thickening consistent with rectal mass Clinically T2 versus T3, NX, MX Status post pacemaker History of rheumatic fever at age 8 with no long-term cardiac complication Plan: Discussed with patient regarding his disease status and treatment options, patient has already seen colorectal surgeon Dr. Grover in [place] and was recommended neoadjuvant chemoradiation to downstage the disease before surgical intervention. In that case, will consider combined chemoradiation therapy with oral Xeloda 825 mg/m??? p.o. twice daily 5 days a week concurrent with radiation therapy all the side effects possible benefits associated with chemotherapy including but not limited to bone marrow suppression, life-threatening infection, mouth sores, jaundice, diarrhea, hand-foot syndrome, skin rash, cardiac toxicity, were mentioned further teaching will be done by chemotherapy nurse, will obtain approval from the insurance prior to the treatment. Case was discussed with radiation oncology, who is considering EUS of rectal mass and if it confirms T2 then surgery alone may be considered otherwise if T3 or T4 then combined chemoradiation is a standard of care. Radiation oncology will schedule EUS rectum, will review and discuss options Patient return to clinic 1 week after combined chemoradiation Is initiated with CBC CMP,unless EUS rectum shows less than T3 lesion Signed By: Adelina Bundy M.D. <<Signature on File>>
--- NOTE | 2020-07-21 | CT_ITS ---
Radiation Therapy Planning CT images; total exam DLP: 1963.13 mGy-cm MTDD
--- NOTE | 2020-07-28 15:24 | ONCRAD TMN_ITS ---
Treatment Management Note Patient Name: Pramod Domínguez Date of : 1955 Date of Service: 07/28/2020 Attending Physician: Yariel Pelayo M.D. Pramod Domínguez is a 64 year old white male diagnosed with a clinical stage IIA (T3N0) versus stage IIIB (T3N1) moderately differentiated adenocarcinoma of the rectum. The patient has received 2 Gy of a prescribed 50 Perales with an intensity modulated radiotherapy plan utilizing a step and shoot treatment technique. He has been prescribed daily oral chemotherapy consisting of capecitabine (825 mg/m2). Upon review of systems, he denied any gastrointestinal complaints related to radiotherapy. On physical examination, the patient weighed 214 lbs. His temperature was 97.8 ???F with a blood pressure of 112/80 mmHg. His pulse was 70 bpm and the respiratory rate was 18. No erythema within the treatment miguel. Continue pelvic radiotherapy as planned. Signed by: Dr. Yariel Pelayo 07/28/2020 3:23:05 PM
== END 2020-07-30 23:59 | disposition home or self-care (01) ==
LOC: ONCMED 05:47
PROVIDERS: Internal Medicine Hematology & Oncology; PCP Family Medicine; Visit Provider Radiology Radiation Oncology
DX: Z51.0 Encounter for antineoplastic radiation therapy (principal); C20 Malignant neoplasm of rectum; I10 Essential (primary) hypertension; I25.2 Old myocardial infarction; Z95.0 Presence of cardiac pacemaker; Z86.79 Personal history of other diseases of the circulatory system; Z79.899 Other long term (current) drug therapy
CPT/HCPCS: 36415; 77290; 77300; 77301; 77334; 77338; 77386; 77470; 80053; 82378; 85025; 99203; Q9967

== ENCOUNTER → 2020-08-25 16:00 | Outpatient (BNVA) | payer MEDICARE, SELFPAY | PROVIDERS: PCP Family Medicine; Referring Provider Radiology Radiation Oncology; Visit Provider Dermatology | DX: B35.4 Tinea corporis (principal); D17.9 Benign lipomatous neoplasm, unspecified; C20 Malignant neoplasm of rectum | CPT/HCPCS: 87220 ==

== ENCOUNTER 2020-08-28 05:34 | Outpatient (RCR) | payer MEDICARE, SELFPAY ==
[2020-08-04 11:56] LABS: Basophils # 0.1 10^3/uL (0.0-0.1); Basophils % 0.8 %; Eosinophils # 0.2 10^3/uL (0.0-0.8); Eosinophils % 3.9 %; Hematocrit 43.4 % (42.0-52.0); Hemoglobin 13.6 g/dL (11.7-16.6); Lymphocytes # 1.4 10^3/uL (0.8-4.8); Lymphocytes % 22.8 %; Mean Corpuscular HGB Conc 31.3 g/dL (30.0-36.0); Mean Corpuscular Volume 89.5 fL (80-94); Mean Platelet Volume 9.6 fL (7.4-10.4); Monocytes # 0.5 10^3/uL (0.2-0.9); Monocytes % 8.3 %; Neutrophils # 3.78 10^3/uL (1.8-7.7); Nucleated Red Blood Cells % 0 %; Platelet Count 271 10^3/cmm (130-400); Red Blood Count 4.85 10^6/uL (4.1-5.3); Red Cell Distribution Width 12.2 % (12.1-15.1); White Blood Count 5.9 10^3/uL (4.0-10.0)
[2020-08-04 12:07] LABS: Alanine Aminotransferase 7 U/L (0-41); Albumin Level 4.2 g/dL (3.5-5.2); Alkaline Phosphatase 57 IU/L (40-130); Anion Gap 12.5 (5-19); Aspartate Amino Transferase 13 U/L (0-40); Blood Urea Nitrogen 18 mg/dL (8-23); Calcium 9.6 mg/dL (8.5-10.5); Carbon Dioxide 31 mmol/L (22-29); Chloride 102 mmol/L (98-107); Globulin 2.7 g/dL (1.3-4.6); Glucose 127 mg/dL (65-115); Osmolality Calculated 295 mOsm/kg (285-295); Potassium 4.5 mmol/L (3.5-5.1); Sodium 141 mmol/L (136-145); Total Bilirubin 0.4 mg/dL (0.15-1.2); Total Protein 6.9 g/dL (6.6-8.7)
--- NOTE | 2020-08-04 12:11 | ONCRAD TMN_ITS ---
Radiation Oncology Treatment Management Note Patient Name: Pramod Domínguez Date of : 1955 Date of Service: 08/04/2020 Attending Physician: Yariel Pelayo M.D. Pramod Domínguez is a 64 year old white male diagnosed with a clinical stage IIA (T3N0) versus stage IIIB (T3N1) moderately differentiated adenocarcinoma of the rectum. The patient has received 10 Gy of a prescribed 50 Perales with an intensity modulated radiotherapy plan utilizing a step and shoot treatment technique. He has been prescribed daily oral chemotherapy consisting of capecitabine (825 mg/m2). Upon review of systems, he denied any gastrointestinal complaints related to radiotherapy. He described nausea after taking Xeloda. On physical examination, the patient weighed 211 lbs. His temperature was 98.5 ???F with a blood pressure of 125/76 mmHg. His pulse was 65 bpm and the respiratory rate was 18. No erythema within the treatment miguel. Continue pelvic radiotherapy as prescribed. I will prescribe prochlorperazine (Compazine) 5 mg prn for his nausea. Signed by: Dr. Yariel Pelayo 08/04/2020 12:10:11 PM
--- NOTE | 2020-08-05 09:05 | ONC FU_ITS ---
Dr. Bundy follow up note Patient: Pramod Domínguez Unit #: [id number]: 1955 Dicatated By: Adelina Bundy M.D.Date of Visit:Aug 05, 2020 Onc Med Follow-up/Prog Note History of Present Illness: Mr. Pramod Domínguez, is a 64-year-old gentleman with 3 months history of change in bowel habits, underwent colonoscopy on June 23, 2020 which showed circumferential malignant appearing mass at 8 cm and pathology report confirmed invasive adenocarcinoma, moderately differentiated, CEA checked on June 23, 2020 was 2.0, underwent CT scan of chest abdomen pelvis on June 23, 2020 which showed rectal mucosal thickening consistent with rectal mass no lymphadenopathy no metastatic disease to liver. Patient was referred to Dr. Grover in [facility] and his impression was tumors likely at least T3 and MRI scan of pelvis was suggested but not done because of patient has pacemaker so preop chemoradiation was recommended to downstage the tumor. Patient has no family history of colon cancer Patient has history of rheumatic fever at age 8 but no long-term cardiac complication. Status post pacemaker for AV block. Patient denies smoking or alcohol use. Started on combined chemoradiation with oral Xeloda on on July 28, 2020 Came for follow-up, denies any specific complaint except mild queasiness especially with Xeloda but now responding to Zofran and also complaining of mild diarrhea but no mouth sores, no abdominal pain, no jaundice, no skin rash, tolerating combined chemoradiation With oral Xeloda well otherwise Medications: Aspirin 1 Tablet (of 81 mg) Tablet, enteric coated Oral daily, Benazepril HCl 1 Tablet (of 10 mg) Oral daily, Carvedilol 1 Tablet (of 6.25 mg) Oral b.i.d., Crestor 1 Tablet (of 10 mg) Oral daily, hydroCHLOROthiazide 0.5 Tablet (of 25 mg) Oral daily, Naproxen 1 Tablet (of 500 mg) Oral b.i.d., traMADol HCl 1 Tablet (of 50 mg) Oral four times a day Allergies: Erythromycin Base and Morphine Derivatives. Review of Systems: Constitutional - Appetite is good and weight is stable. No fever, night sweats, or hot flashes. Energy is fair, ENMT - No sinus congestion/drainage. No mouth sores. No sore throat or difficulty swallowing, Hematologic/Lymphatic - No abnormal bruising or bleeding, Respiratory - No shortness of breath. No cough. No pleuritic pain or hemoptysis, Cardiovascular - No angina pain. No palpitations, Gastrointestinal - No nausea or vomiting. No heartburn or acid reflux. No diarrhea or constipation. No blood in the stool or black stools, Genitourinary (M) - No dysuria or hematuria. No urinary frequency. No urgency or incontinence, Musculoskeletal - No joint or bone pain, Neurologic - No headache or dizziness. No numbness or tingling. No other focal neurologic symptoms, Psychiatric - No anxiety or depression. No insomnia. Vital Signs: Performed on Aug 05, 2020 08:18 Height - 72.00 in Weight - 212.6 lbs (HIGH) BSA - 2.19 sq.m BMI - 28.83 Temperature - 97.4 F (LOW) Pulse - 68 /min Respiration - 16 /min BP - 115/71 mm(hg) O2 Sat - 94 % (LOW) Pain - 0 Performance Status: 0 - Fully active, able to carry on all predisease activities without restrictions. (ECOG) Physical Examination: ENMT - No mouth sores no thrush, no jaundice, Respiratory - Lungs are clear to auscultation, Cardiovascular - Regular rate and rhythm of heart , Abdomen - Soft, bowel sounds present, Extremities - No visible edema. Lab/Imaging: Test performed on Jul 14, 2020 15:48 Sodium 141 mmol/L Potassium 3.7 mmol/L Chloride 105 mmol/L CO2 27 mmol/L Anion Gap 12.7 BUN 25 mg/dL Creatinine 0.9 mg/dL Cr Clearance (Est) 110.8500 mL/min eGFR 84.4 mL/min Glucose 125 mg/dL Osmolality - Calculated 298 mOsm/kg Calcium 9.4 mg/dL Protein, Total 6.9 g/dL Albumin 4.1 g/dL Globulin 2.8 g/dL Bilirubin, Total 0.3 mg/dL ALT (SGPT) 9 U/L AST (SGOT) 13 U/L Alkaline Phosphatase 54 IU/L WBC 6.9 10 3/uL RBC 4.67 10 6/uL HGB 13.0 g/dL HCT 41.3 % MCV 88.4 fL MCH 27.8 pg MCHC 31.5 g/dL RDW 12.4 % Platelet Count 260 10 3/cmm MPV 9.4 fL Neutrophils 3.97 10 3/uL Lymphocytes 1.9 10 3/uL Monocytes 0.6 10 3/uL Eosinophils 0.4 10 3/uL Basophils 0.0 10 3/uL Neutrophil % 57.2 % Lymphocyte % 28.0 % Monocyte % 8.6 % Eosinophil % 5.5 % Basophils % 0.6 % NRBC % 0 % CEA 1.5 ng/mL Impression: moderately differentiated, invasive adenocarcinoma involving rectum per colonoscopy done on June 23, 2020 CT scan of chest abdomen pelvis done on June 23, 2020 showed no evidence of metastatic disease and rectal mucosal thickening consistent with rectal mass Clinically T2 versus T3, NX, MX Status post pacemaker History of rheumatic fever at age 8 with no long-term cardiac complication Plan: Discussed with patient regarding his labs white blood count 5.9 hemoglobin 13.6 crit 43.4 platelets 271,000 CMP within normal limits Clinically, patient is doing well, tolerating combined chemoradiation with oral Xeloda well but with expected side effects e.g. mild nausea, now resolved with Zofran and mild diarrhea which could be due to combined chemoradiation. His lab work-up is within normal range so we will continue with same dose of Xeloda concurrent with radiation therapy and then he will return to clinic in 1 week with CBC CMP As with mild nausea is concerned patient was advised to take Zofran half an hour before he takes Xeloda pills to have the best protection. Patient was advised to maintain good hydration and also avoid spicy/acidic food to minimize risk of gastric irritation. Signed By: Adelina Bundy M.D. <<Signature on File>>
--- NOTE | 2020-08-10 12:42 | ONCRAD TMN_ITS ---
Radiation Oncology Treatment Management Note Patient Name: Pramod Domínguez Date of : 1955 Date of Service: 08/10/2020 Attending Physician: Yariel Pelayo M.D. Pramod Domínguez is a 64 year old white male diagnosed with a clinical stage IIA (T3N0) versus stage IIIB (T3N1) moderately differentiated adenocarcinoma of the rectum. The patient has received 18 Gy of a prescribed 50 Perales with an intensity modulated radiotherapy plan utilizing a step and shoot treatment technique. He has been prescribed daily oral chemotherapy consisting of capecitabine (825 mg/m2). Upon review of systems, he reported diarrhea (10 ??? 15 episodes). On physical examination, the patient weighed 215lbs. His temperature was 98.7 ???F with a blood pressure of 120/80 mmHg. His pulse was 68 bpm and the respiratory rate was 20. No erythema within the treatment miguel. Continue pelvic radiotherapy as planned. I consulted with Adelina Bundy M.D. who recommended holding Xeloda. Signed by: Dr. Yariel Pelayo 08/10/2020 12:40:38 PM
[2020-08-12 12:27] LABS: Basophils % 0.6 %; Eosinophils # 0.4 10^3/uL (0.0-0.8); Eosinophils % 7.3 %; Hematocrit 41.7 % (42.0-52.0); Hemoglobin 12.9 g/dL (11.7-16.6); Lymphocytes # 0.9 10^3/uL (0.8-4.8); Lymphocytes % 18.1 %; Mean Corpuscular HGB Conc 30.9 g/dL (30.0-36.0); Mean Corpuscular Hemoglobin 27.9 pg (28.0-34.0); Mean Corpuscular Volume 90.3 fL (80-94); Mean Platelet Volume 9.6 fL (7.4-10.4); Monocytes # 0.5 10^3/uL (0.2-0.9); Monocytes % 10.8 %; Neutrophils % 62.8 %; Nucleated Red Blood Cells % 0 %; Platelet Count 224 10^3/cmm (130-400); Red Blood Count 4.62 10^6/uL (4.1-5.3); White Blood Count 4.9 10^3/uL (4.0-10.0)
[2020-08-12 12:56] LABS: Alanine Aminotransferase 10 U/L (0-41); Albumin Level 3.8 g/dL (3.5-5.2); Alkaline Phosphatase 47 IU/L (40-130); Anion Gap 10.7 (5-19); Aspartate Amino Transferase 13 U/L (0-40); Blood Urea Nitrogen 16 mg/dL (8-23); Calcium 9.2 mg/dL (8.5-10.5); Carbon Dioxide 30 mmol/L (22-29); Chloride 104 mmol/L (98-107); Globulin 2.7 g/dL (1.3-4.6); Glomerular Filtration Rate 84.4 mL/min (90-130); Glucose 96 mg/dL (65-115); Osmolality Calculated 293 mOsm/kg (285-295); Potassium 3.7 mmol/L (3.5-5.1); Sodium 141 mmol/L (136-145); Total Bilirubin 0.3 mg/dL (0.15-1.2); Total Protein 6.5 g/dL (6.6-8.7)
--- NOTE | 2020-08-13 09:12 | ONC FU_ITS ---
Dr. Bundy follow up note Patient: Pramod Domínguez Unit #: [id number]: 1955 Dicatated By: Adelina Bundy M.D.Date of Visit:Aug 13, 2020 Onc Med Follow-up/Prog Note History of Present Illness: Mr. Pramod Domínguez, is a 64-year-old gentleman with 3 months history of change in bowel habits, underwent colonoscopy on June 23, 2020 which showed circumferential malignant appearing mass at 8 cm and pathology report confirmed invasive adenocarcinoma, moderately differentiated, CEA checked on June 23, 2020 was 2.0, underwent CT scan of chest abdomen pelvis on June 23, 2020 which showed rectal mucosal thickening consistent with rectal mass no lymphadenopathy no metastatic disease to liver. Patient was referred to Dr. Grover in [facility] and his impression was tumors likely at least T3 and MRI scan of pelvis was suggested but not done because of patient has pacemaker so preop chemoradiation was recommended to downstage the tumor. Patient has no family history of colon cancer Patient has history of rheumatic fever at age 8 but no long-term cardiac complication. Status post pacemaker for AV block. Patient denies smoking or alcohol use. Started on combined chemoradiation with oral Xeloda on on July 28, 2020 Came for follow-up, denies any specific complaint except skin rash and itching on the inner half of left buttock, patient said he history of Jock itch in the past and used to use [id number] antifungal. And also noticed some dryness and discomfort in palm and sole area. It did show the skin lesions to Dr. Pelayo, radiation oncology last week and at that time we decided to hold his oral Xeloda, as per patient since then his diarrhea has resolved and [id number] discomfort is almost gone and left inner buttock rashes also improving with skin cream prescribed by Dr. Pelayo.. Denies any mouth sores, denies any abdominal pain, denies any jaundice denies any fever chills, denies any nausea vomiting, tolerating radiation well. Medications: Aspirin 1 Tablet (of 81 mg) Tablet, enteric coated Oral daily, Benazepril HCl 1 Tablet (of 10 mg) Oral daily, Carvedilol 1 Tablet (of 6.25 mg) Oral b.i.d., Crestor 1 Tablet (of 10 mg) Oral daily, hydroCHLOROthiazide 0.5 Tablet (of 25 mg) Oral daily, Naproxen 1 Tablet (of 500 mg) Oral b.i.d., traMADol HCl 1 Tablet (of 50 mg) Oral four times a day Allergies: Erythromycin Base and Morphine Derivatives. Review of Systems: Review of Systems is not available for this patient. Vital Signs: Performed on Aug 13, 2020 08:22 Height - 72.00 in Weight - 218.0 lbs (HIGH) BSA - 2.21 sq.m BMI - 29.57 Temperature - 97.7 F (LOW) Pulse - 94 /min Respiration - 16 /min BP - 128/82 mm(hg) O2 Sat - 93 % (LOW) Pain - 0 Performance Status: 0 - Fully active, able to carry on all predisease activities without restrictions. (ECOG) Physical Examination: ENMT - No mouth sores, no thrush, no jaundice, Respiratory - Lungs are clear to auscultation, Cardiovascular - Regular rate and rhythm of heart, Abdomen - Soft, bowel sounds present, Extremities - No visible edema but ring-type skin rash involving inner side of left buttock. , No skin changes noticed in his palm and sole area Lab/Imaging: Test performed on Jul 14, 2020 15:48 Sodium 141 mmol/L Potassium 3.7 mmol/L Chloride 105 mmol/L CO2 27 mmol/L Anion Gap 12.7 BUN 25 mg/dL Creatinine 0.9 mg/dL Cr Clearance (Est) 110.8500 mL/min eGFR 84.4 mL/min Glucose 125 mg/dL Osmolality - Calculated 298 mOsm/kg Calcium 9.4 mg/dL Protein, Total 6.9 g/dL Albumin 4.1 g/dL Globulin 2.8 g/dL Bilirubin, Total 0.3 mg/dL ALT (SGPT) 9 U/L AST (SGOT) 13 U/L Alkaline Phosphatase 54 IU/L WBC 6.9 10 3/uL RBC 4.67 10 6/uL HGB 13.0 g/dL HCT 41.3 % MCV 88.4 fL MCH 27.8 pg MCHC 31.5 g/dL RDW 12.4 % Platelet Count 260 10 3/cmm MPV 9.4 fL Neutrophils 3.97 10 3/uL Lymphocytes 1.9 10 3/uL Monocytes 0.6 10 3/uL Eosinophils 0.4 10 3/uL Basophils 0.0 10 3/uL Neutrophil % 57.2 % Lymphocyte % 28.0 % Monocyte % 8.6 % Eosinophil % 5.5 % Basophils % 0.6 % NRBC % 0 % CEA 1.5 ng/mL Impression: moderately differentiated, invasive adenocarcinoma involving rectum per colonoscopy done on June 23, 2020 CT scan of chest abdomen pelvis done on June 23, 2020 showed no evidence of metastatic disease and rectal mucosal thickening consistent with rectal mass Clinically T2 versus T3, NX, MX Status post pacemaker History of rheumatic fever at age 8 with no long-term cardiac complication Started on combined chemoradiation with oral Xeloda 1800 mg p.o. twice daily 5 days a week on July 28, 2020, dose was reduced to 1500 mg p.o. twice daily 5 days a week on August 13, 2019 because of grade 1 hand-foot syndrome and diarrhea Plan: Discussed with patient regarding his labs white blood count 4.9 hemoglobin 12.9 hematocrit 41.7 platelets 224,000 CMP within normal limits Clinically, patient is doing well, tolerating combined chemoradiation with oral Xeloda 1800 mg p.o. twice daily 5 days a week, well but with expected side effects e.g. 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 As far as Xeloda related toxicity is concerned especially grade 1 hand-foot syndrome, will consider dose reduction and will try Xeloda 1500 mg p.o. twice daily instead of 1800 mg p.o. twice daily currently on, concurrent with radiation therapy. Patient was advised in case there is a recurrence of skin rash or discomfort or rash involving knbe-rnr-avvo, he need to hold his medication and call us otherwise we will see him back in 1 week with CBC CMP. Signed By: Adelina Bundy M.D. <<Signature on File>>
--- NOTE | 2020-08-13 09:12 | ONC FU_ITS ---
Dr. Bundy follow up note Patient: Pramod Domínguez Unit #: [id number]: 1955 Dicatated By: Adelina Bundy M.D.Date of Visit:Aug 13, 2020 Onc Med Follow-up/Prog Note History of Present Illness: Mr. Pramod Domínguez, is a 64-year-old gentleman with 3 months history of change in bowel habits, underwent colonoscopy on June 23, 2020 which showed circumferential malignant appearing mass at 8 cm and pathology report confirmed invasive adenocarcinoma, moderately differentiated, CEA checked on June 23, 2020 was 2.0, underwent CT scan of chest abdomen pelvis on June 23, 2020 which showed rectal mucosal thickening consistent with rectal mass no lymphadenopathy no metastatic disease to liver. Patient was referred to Dr. Grover in [facility] and his impression was tumors likely at least T3 and MRI scan of pelvis was suggested but not done because of patient has pacemaker so preop chemoradiation was recommended to downstage the tumor. Patient has no family history of colon cancer Patient has history of rheumatic fever at age 8 but no long-term cardiac complication. Status post pacemaker for AV block. Patient denies smoking or alcohol use. Started on combined chemoradiation with oral Xeloda on on July 28, 2020 Came for follow-up, denies any specific complaint except skin rash and itching on the inner half of left buttock, patient said he history of Jock itch in the past and used to use [id number]-ylcylip antifungal. And also noticed some dryness and discomfort in palm and sole area. It did show the skin lesions to Dr. Pelayo, radiation oncology last week and at that time we decided to hold his oral Xeloda, as per patient since then his diarrhea has resolved and [id number] discomfort is almost gone and left inner buttock rashes also improving with skin cream prescribed by Dr. Pelayo.. Denies any mouth sores, denies any abdominal pain, denies any jaundice denies any fever chills, denies any nausea vomiting, tolerating radiation well. Medications: Aspirin 1 Tablet (of 81 mg) Tablet, enteric coated Oral daily, Benazepril HCl 1 Tablet (of 10 mg) Oral daily, Carvedilol 1 Tablet (of 6.25 mg) Oral b.i.d., Crestor 1 Tablet (of 10 mg) Oral daily, hydroCHLOROthiazide 0.5 Tablet (of 25 mg) Oral daily, Naproxen 1 Tablet (of 500 mg) Oral b.i.d., traMADol HCl 1 Tablet (of 50 mg) Oral four times a day Allergies: Erythromycin Base and Morphine Derivatives. Review of Systems: Review of Systems is not available for this patient. Vital Signs: Performed on Aug 13, 2020 08:22 Height - 72.00 in Weight - 218.0 lbs (HIGH) BSA - 2.21 sq.m BMI - 29.57 Temperature - 97.7 F (LOW) Pulse - 94 /min Respiration - 16 /min BP - 128/82 mm(hg) O2 Sat - 93 % (LOW) Pain - 0 Performance Status: 0 - Fully active, able to carry on all predisease activities without restrictions. (ECOG) Physical Examination: ENMT - No mouth sores, no thrush, no jaundice, Respiratory - Lungs are clear to auscultation, Cardiovascular - Regular rate and rhythm of heart, Abdomen - Soft, bowel sounds present, Extremities - No visible edema but ring-type skin rash involving inner side of left buttock. Lab/Imaging: Test performed on Jul 14, 2020 15:48 Sodium 141 mmol/L Potassium 3.7 mmol/L Chloride 105 mmol/L CO2 27 mmol/L Anion Gap 12.7 BUN 25 mg/dL Creatinine 0.9 mg/dL Cr Clearance (Est) 110.8500 mL/min eGFR 84.4 mL/min Glucose 125 mg/dL Osmolality - Calculated 298 mOsm/kg Calcium 9.4 mg/dL Protein, Total 6.9 g/dL Albumin 4.1 g/dL Globulin 2.8 g/dL Bilirubin, Total 0.3 mg/dL ALT (SGPT) 9 U/L AST (SGOT) 13 U/L Alkaline Phosphatase 54 IU/L WBC 6.9 10 3/uL RBC 4.67 10 6/uL HGB 13.0 g/dL HCT 41.3 % MCV 88.4 fL MCH 27.8 pg MCHC 31.5 g/dL RDW 12.4 % Platelet Count 260 10 3/cmm MPV 9.4 fL Neutrophils 3.97 10 3/uL Lymphocytes 1.9 10 3/uL Monocytes 0.6 10 3/uL Eosinophils 0.4 10 3/uL Basophils 0.0 10 3/uL Neutrophil % 57.2 % Lymphocyte % 28.0 % Monocyte % 8.6 % Eosinophil % 5.5 % Basophils % 0.6 % NRBC % 0 % CEA 1.5 ng/mL Impression: moderately differentiated, invasive adenocarcinoma involving rectum per colonoscopy done on June 23, 2020 CT scan of chest abdomen pelvis done on June 23, 2020 showed no evidence of metastatic disease and rectal mucosal thickening consistent with rectal mass Clinically T2 versus T3, NX, MX Status post pacemaker History of rheumatic fever at age 8 with no long-term cardiac complication Started on combined chemoradiation with oral Xeloda 1800 mg p.o. twice daily 5 days a week on July 28, 2020, dose was reduced to 1500 mg p.o. twice daily 5 days a week on August 13, 2019 because of grade 1 hand-foot syndrome and diarrhea Plan: Discussed with patient regarding his labs white blood count 4.9 hemoglobin 12.9 hematocrit 41.7 platelets 224,000 CMP within normal limits Clinically, patient is doing well, tolerating combined chemoradiation with oral Xeloda 1800 mg p.o. twice daily 5 days a week, well but with expected side effects e.g. 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 As far as Xeloda related toxicity is concerned especially grade 1 hand-foot syndrome, will consider dose reduction and will try Xeloda 1500 mg p.o. twice daily instead of 1800 mg p.o. twice daily currently on, concurrent with radiation therapy. Patient was advised in case there is a recurrence of skin rash or discomfort or rash involving [id number]-ssdz, he need to hold his medication and call us otherwise we will see him back in 1 week with CBC CMP. Signed By: Adelina Bundy M.D. <<Signature on File>>
--- NOTE | 2020-08-17 12:46 | ONCRAD TMN_ITS ---
Radiation Oncology Treatment Management Note Patient Name: Pramod Domínguez Date of : 1955 Date of Service: 08/17/2020 Attending Physician: Yariel Pelayo M.D. Pramod Domínguez is a 64 year old white male diagnosed with a clinical stage IIA (T3N0) versus stage IIIB (T3N1) moderately differentiated adenocarcinoma of the rectum. The patient has received 28 Gy of a prescribed 50 Perales with an intensity modulated radiotherapy plan utilizing a step and shoot treatment technique. He has been prescribed daily oral chemotherapy consisting of capecitabine (825 mg/m2). Upon review of systems, he reported improved caliber stools. On physical examination, the patient weighed 220 lbs. His temperature was 98.3 ???F with a blood pressure of 118/79 mmHg. His pulse was 70 bpm and the respiratory rate was 18. No erythema within the treatment miguel. Continue pelvic radiotherapy as prescribed. Xeloda has been reduced to 1500 mg twice daily due to recent diarrhea and hand-foot syndrome (grade I). Signed by: Dr. Yariel Pelayo 08/17/2020 12:44:42 PM
--- NOTE | 2020-08-24 12:04 | ONCRAD TMN_ITS ---
Radiation Oncology Treatment Management Note Patient Name: Pramod Domínguez Date of : 1955 Date of Service: 08/24/2020 Attending Physician: Yariel Pelayo M.D. Pramod Domínguez is a 64 year old white male diagnosed with a clinical stage IIA (T3N0) versus stage IIIB (T3N1) moderately differentiated adenocarcinoma of the rectum. The patient has received 38 Gy of a prescribed 50 Perales with an intensity modulated radiotherapy plan utilizing a step and shoot treatment technique. He has been prescribed daily oral chemotherapy consisting of capecitabine (825 mg/m2). Upon review of systems, he reported increased number of stools but denied watery diarrhea. On physical examination, the patient weighed 216 lbs. His temperature was 98.3 ???F with a blood pressure of 128/77 mmHg. His pulse was 70 bpm and the respiratory rate was 18. No erythema within the treatment miguel. A well-demarcated, red rash was present on the left buttock Continue pelvic radiotherapy as planned. I will request a dermatology consult to evaluate the asymmetric rash. Signed by: Dr. Yariel Pelayo 08/24/2020 12:02:55 PM
== END 2020-08-30 23:59 | disposition home or self-care (01) ==
LOC: ONCMED 05:34
PROVIDERS: Internal Medicine Hematology & Oncology; Absent Provider Radiology Radiation Oncology; PCP Family Medicine; Visit Provider Radiology Radiation Oncology
DX: Z51.0 Encounter for antineoplastic radiation therapy (principal); C20 Malignant neoplasm of rectum; Z95.0 Presence of cardiac pacemaker; Z86.19 Personal history of other infectious and parasitic diseases; Z92.21 Personal history of antineoplastic chemotherapy
CPT/HCPCS: 36415; 77336; 77386; 80053; 85025; 99214

== ENCOUNTER 2020-09-01 05:30 | Outpatient (RCR) | payer MEDICARE, SELFPAY ==
[2020-09-01 12:01] LABS: Basophils % 0.8 %; Eosinophils # 0.3 10^3/uL (0.0-0.8); Hematocrit 40.7 % (42.0-52.0); Hemoglobin 13.1 g/dL (11.7-16.6); Lymphocytes # 0.5 10^3/uL (0.8-4.8); Lymphocytes % 13.5 %; Mean Corpuscular HGB Conc 32.2 g/dL (30.0-36.0); Mean Corpuscular Hemoglobin 29.2 pg (28.0-34.0); Mean Corpuscular Volume 90.8 fL (80-94); Mean Platelet Volume 9.2 fL (7.4-10.4); Monocytes # 0.5 10^3/uL (0.2-0.9); Monocytes % 13.5 %; Neutrophils % 64.9 %; Nucleated Red Blood Cells % 0 %; Platelet Count 176 10^3/cmm (130-400); Red Blood Count 4.48 10^6/uL (4.1-5.3); Red Cell Distribution Width 14.8 % (12.1-15.1); White Blood Count 3.9 10^3/uL (4.0-10.0)
[2020-09-01 13:05] LABS: Alanine Aminotransferase 20 U/L (0-41); Albumin Level 4.3 g/dL (3.5-5.2); Alkaline Phosphatase 48 IU/L (40-130); Anion Gap 11.3 (5-19); Aspartate Amino Transferase 24 U/L (0-40); Blood Urea Nitrogen 14 mg/dL (8-23); Calcium 9.5 mg/dL (8.5-10.5); Carbon Dioxide 32 mmol/L (22-29); Chloride 101 mmol/L (98-107); Globulin 2.6 g/dL (1.3-4.6); Glomerular Filtration Rate 84.4 mL/min (90-130); Glucose 90 mg/dL (65-115); Osmolality Calculated 290 mOsm/kg (285-295); Potassium 4.3 mmol/L (3.5-5.1); Sodium 140 mmol/L (136-145); Total Bilirubin 0.4 mg/dL (0.15-1.2); Total Protein 6.9 g/dL (6.6-8.7)
--- NOTE | 2020-09-07 17:17 | ONC FU_ITS ---
[facility]enn[facility] Patient Note Patient: Pramod Domínguez Unit #: [id number]: 1955 Dictated By: Navya JohnstonDate of Visit: Sep 01, 2020 Onc MED Follow-Up/Prog Note Chief Complaint: Rectal cancer History of Present Illness: Mr. Domínguez is a 64-year-old gentleman with 3 month history of change in bowel habits. He underwent a colonoscopy on June 23, 2020 which showed circumferential malignant appearing mass at 8 cm. The pathology report confirmed invasive adenocarcinoma, moderately differentiated. A CEA checked on June 23, 2020 was 2.0. Mr Domínguez underwent CT scan of chest abdomen pelvis on June 23, 2020 which showed rectal mucosal thickening consistent with rectal mass; no lymphadenopathy and no metastatic disease to liver. Mr Domínguez was referred to Dr. Grover in [facility]. Dr Grover's impression was tumors likely at least T3 and MRI scan of pelvis was suggested but not done because of patient has pacemaker. Preop chemoradiation was recommended to downstage the tumor. Patient has no family history of colon cancer Patient has history of rheumatic fever at age 8 but no long-term cardiac complication. Status post pacemaker for AV block. Patient denies smoking or alcohol use. Started on combined chemoradiation with oral Xeloda on on July 28, 2020. His Xeloda was placed on hold for diarrhea and hand foot syndrome on August 10, 2020 and then his dose was reduced to 1500 mg twice daily with radiation at his followup on 08/17/2020. He was able to complete chemoradiation with the Xeloda at 1500 mg twice daily. He completed radiation therapy today. Mr. Alfaro presents here today for follow-up of the Xeloda. He has had grade 1 hand-foot syndrome and some intermittent fungal type skin changes in his folds. He states this is chronic. He does respond to antifungal medications. He denies any new pain. He states he has had no nausea or vomiting. His diarrhea has been intermittent but is controlled with [id number] Imodium. He has no new concerns today. He denies any fever or chills. He denies mouth sores, sore throat or difficulty swallowing. He has had slight fissures in his thumbs but states they are healing well. His ECOG is 0. Past Medical History: Cardiomyopathy Hypertension Myocardial infarction Past Surgical History: Back surgery Bilateral carpal tunnel release Colonoscopy Neck surgery Pacemaker placement in 2014 Allergies: Erythromycin Base and Morphine Derivatives. Medications: Aspirin 1 Tablet (of 81 mg) Tablet, enteric coated Oral daily Benazepril HCl 1 Tablet (of 10 mg) Oral daily Carvedilol 1 Tablet (of 6.25 mg) Oral b.i.d. Cholecalciferol 1 Tablet (of 100 mcg ) Oral daily Crestor 1 Tablet (of 10 mg) Oral daily hydroCHLOROthiazide 0.5 Tablet (of 25 mg) Oral daily Naproxen 1 Tablet (of 500 mg) Oral b.i.d. traMADol HCl 1 Tablet (of 50 mg) Oral four times a day Family History: Mr. Domínguez's mother at age 82: coronary artery disease, and hypertension. Mr. Domínguez's father at age 23: accident fall, and hypertension. Social History: Mr. Domínguez is . Mr. Domínguez has never smoked. He drinks occasionally. He consumes 2 days/week. pt states he chewed for 10 years. he chewed 2 cans a week. Review Of Symptoms: Constitutional Denies fevers, chills, night sweats, excessive fatigue or weight loss. Allergic/Immunologic No reactions. Eyes Denies significant visual changes. No diplopia. No amaurosis. ENMT Denies changes in hearing, sore throat, mouth sores, difficulty or changes in swallowing ability, and/or sinus drainage. Hematologic/Lymphatic Denies easy bruising or bleeding. The patient denies any tender or palpable lymph nodes. Respiratory Denies dyspnea on exertion, chest pain, cough or hemoptysis. Denies orthopnea. Cardiovascular Denies anginal chest pain, palpitations or orthopnea. Gastrointestinal Denies nausea, vomiting, diarrhea, GI bleeding, or constipation. Denies change in bowel habits and/or stool color, no heartburn or early satiety. Genitourinary (M) Denies hematuria, dysuria, increased frequency, urgency, hesitancy or incontinence. Musculoskeletal Denies joint pain, swelling or redness. No decreased range of motion. Integumentary Denies chronic rashes, inflammation, ulcerations or skin changes. Neurologic Denies headache, blurred vision, and no areas of focal weakness or numbness. Normal gait. No sensory problems. Psychiatric Denies insomnia, depression, luzmaria or mood swings. Vital Signs: Performed on Sep 01, 2020 12:57 Height - 72.00 in Weight - 215.2 lbs (LOW) BSA - 2.20 sq.m BMI - 29.19 Temperature - 97.8 F (LOW) Pulse - 88 /min Respiration - 18 /min BP - 129/82 mm(hg) O2 Sat - 95 % (LOW) Pain - 9,0 - Fully active, able to carry on all predisease activities without restrictions. (ECOG) Physical Examination: Constitutional Alert, oriented, no acute distress. Skin pink, warm and dry. Head Normocephalic; atraumatic. Eyes Conjunctivae and sclerae are clear and without icterus. Pupils are reactive and equal. Neck Supple without masses or thyromegaly. No jugular venous distension. Respiratory Lungs are clear to auscultation without rhonchi or wheezing. Cardiovascular Regular rate and rhythm of heart without murmurs,clicks, gallops or rubs. Abdomen Non-tender, non-distended, no masses or ascites. Good bowel sounds noted in all quads. No guarding or rebound tenderness. No pulsatile masses. Back/Spine Non-tender to palpation. Extremities No visible deformities, no cyanosis, clubbing or edema. Musculoskeletal No tenderness or swelling, normal range of motion without obvious weakness. Integumentary No rashes or lesions. Neurologic No sensory or motor deficits, normal cerebellar function, normal gait. Psychiatric Alert and oriented times three. Coherent speech. Verbalizes understanding of our discussions today. Laboratory:Test performed on Sep 01, 2020 11:43 Sodium 140 mmol/L Potassium 4.3 mmol/L Chloride 101 mmol/L CO2 32 mmol/L Anion Gap 11.3 BUN 14 mg/dL Creatinine 0.9 mg/dL Cr Clearance (Est) 111.4700 mL/min eGFR 84.4 mL/min Glucose 90 mg/dL Osmolality - Calculated 290 mOsm/kg Calcium 9.5 mg/dL Protein, Total 6.9 g/dL Albumin 4.3 g/dL Globulin 2.6 g/dL Bilirubin, Total 0.4 mg/dL ALT (SGPT) 20 U/L AST (SGOT) 24 U/L Alkaline Phosphatase 48 IU/L WBC 3.9 10 3/uL RBC 4.48 10 6/uL HGB 13.1 g/dL HCT 40.7 % MCV 90.8 fL MCH 29.2 pg MCHC 32.2 g/dL RDW 14.8 % Platelet Count 176 10 3/cmm MPV 9.2 fL Neutrophils 2.50 10 3/uL Lymphocytes 0.5 10 3/uL Monocytes 0.5 10 3/uL Eosinophils 0.3 10 3/uL Basophils 0.0 10 3/uL Neutrophil % 64.9 % Lymphocyte % 13.5 % Monocyte % 13.5 % Eosinophil % 7.0 % Basophils % 0.8 % NRBC % 0 % Test performed on Jul 14, 2020 15:48 CEA 1.5 ng/mL Impression: moderately differentiated, invasive adenocarcinoma involving rectum per colonoscopy done on June 23, 2020 CT scan of chest abdomen pelvis done on June 23, 2020 showed no evidence of metastatic disease and rectal mucosal thickening consistent with rectal mass Clinically T2 versus T3, NX, MX Status post pacemaker History of rheumatic fever at age 8 with no long-term cardiac complication Started on combined chemoradiation with oral Xeloda 1800 mg p.o. twice daily 5 days a week on July 28, 2020, dose was reduced to 1500 mg p.o. twice daily 5 days a week on August 13, 2019 because of grade 1 hand-foot syndrome and diarrhea. Mr. Holder completed chemoradiation on September 01, 2020. He will now be referred back to Dr. Grover for further plan of care. Plan: PROBLEMS ADDRESSED TODAY Moderate differentiated invasive adenocarcinoma of the rectum A. He completes radiation and concurrent chemotherapy with Xeloda today. B. Today's labs reviewed in detail discussed with . Mrs. Domínguez and a copy was given to them. WBC 3.9, hemoglobin 13.1, platelets 176,000 ANC is 2500. Potassium 4.3 creatinine 0.9 random glucose 90 LFTs are normal. C. He will now need to reconnect with Dr. Grover after completion of chemoradiation. D. He may continue to use antifungal if he has any recurrence of the fungal type infections especially on the inner side of the left buttock. E. We will plan to see him back in 1 month for follow-up post treatment. I have asked for CBC CMP and CEA at that time. If this coordinates with the time he is being seen by Dr. Grover,l we can move our appointment. I just want to make sure that he does have follow-up appointment established. F. We will contact Dr. Grover's office and let them know that he is completed treatment at this time. G. Mr. Domínguez has been encouraged to let us know in interim should questions or problems arise. Signed By: Navya Johnston-, AOCNP Adelina Bundy MD <<Signature on File>>
== END 2020-09-27 23:59 | disposition home or self-care (01) ==
LOC: ONCMED 05:30
PROVIDERS: Absent Provider Radiology Radiation Oncology; PCP Family Medicine; Visit Provider Nurse Practitioner
DX: Z51.0 Encounter for antineoplastic radiation therapy (principal); C20 Malignant neoplasm of rectum; I25.5 Ischemic cardiomyopathy; I10 Essential (primary) hypertension; I25.2 Old myocardial infarction; Z95.0 Presence of cardiac pacemaker; Z86.19 Personal history of other infectious and parasitic diseases; Z79.899 Other long term (current) drug therapy
CPT/HCPCS: 36415; 77336; 77386; 80053; 85025; 99214

== ENCOUNTER 2020-10-09 05:40 | Outpatient (RCR) | payer MEDICARE, SELFPAY ==
[2020-09-29 09:34] LABS: Basophils % 0.4 %; Eosinophils # 0.3 10^3/uL (0.0-0.8); Eosinophils % 6.1 %; Hemoglobin 13.3 g/dL (11.7-16.6); Lymphocytes # 0.6 10^3/uL (0.8-4.8); Lymphocytes % 12.1 %; Mean Corpuscular HGB Conc 31.7 g/dL (30.0-36.0); Mean Corpuscular Hemoglobin 28.9 pg (28.0-34.0); Mean Corpuscular Volume 91.3 fL (80-94); Mean Platelet Volume 9.1 fL (7.4-10.4); Monocytes # 0.5 10^3/uL (0.2-0.9); Monocytes % 10.1 %; Neutrophils # 3.36 10^3/uL (1.8-7.7); Neutrophils % 71.1 %; Nucleated Red Blood Cells % 0 %; Platelet Count 211 10^3/cmm (130-400); Red Cell Distribution Width 14.2 % (12.1-15.1); White Blood Count 4.7 10^3/uL (4.0-10.0)
[2020-09-29 09:50] LABS: Alanine Aminotransferase 10 U/L (0-41); Albumin Level 4.1 g/dL (3.5-5.2); Alkaline Phosphatase 50 IU/L (40-130); Anion Gap 12.9 (5-19); Aspartate Amino Transferase 13 U/L (0-40); Blood Urea Nitrogen 17 mg/dL (8-23); Calcium 9.4 mg/dL (8.5-10.5); Carbon Dioxide 27 mmol/L (22-29); Chloride 104 mmol/L (98-107); Globulin 2.9 g/dL (1.3-4.6); Glomerular Filtration Rate 84.2 mL/min (90-130); Glucose 100 mg/dL (65-115); Osmolality Calculated 292 mOsm/kg (285-295); Potassium 3.9 mmol/L (3.5-5.1); Sodium 140 mmol/L (136-145); Total Bilirubin 0.4 mg/dL (0.15-1.2)
[2020-09-29 15:03] LABS: Carcinoembryonic Antigen 1.8 ng/mL (0.0-4.7)
--- NOTE | 2020-09-30 16:56 | ONC FU_ITS ---
Dr. Bunyd follow up note Patient: Pramod Domínguez Unit #: [id number]: 1955 Dicatated By: Adelina Bundy M.D.Date of Visit:Sep 29, 2020 Onc Med Follow-up/Prog Note History of Present Illness: Mr. Domínguez is a 64-year-old gentleman with 3 month history of change in bowel habits. He underwent a colonoscopy on June 23, 2020 which showed circumferential malignant appearing mass at 8 cm. The pathology report confirmed invasive adenocarcinoma, moderately differentiated. A CEA checked on June 23, 2020 was 2.0. Mr Domínguez underwent CT scan of chest abdomen pelvis on June 23, 2020 which showed rectal mucosal thickening consistent with rectal mass; no lymphadenopathy and no metastatic disease to liver. Mr Domínguez was referred to Dr. Grover in [facility]. Dr Grover's impression was tumors likely at least T3 and MRI scan of pelvis was suggested but not done because of patient has pacemaker. Preop chemoradiation was recommended to downstage the tumor. Patient has no family history of colon cancer Patient has history of rheumatic fever at age 8 but no long-term cardiac complication. Status post pacemaker for AV block. Patient denies smoking or alcohol use. Started on combined chemoradiation with oral Xeloda on on July 28, 2020. His Xeloda was placed on hold for diarrhea and hand foot syndrome on August 10, 2020 and then his dose was reduced to 1500 mg twice daily with radiation at his followup on 08/17/2020. He was able to complete chemoradiation with the Xeloda at 1500 mg twice daily. He completed radiation therapy September 01, 2020 Came for follow-up, denies any specific complaints, no fever chills, no nausea or vomiting, no diarrhea constipation, no mouth sores, no hand-foot rash, no jaundice, no abdominal pain, patient said he is scheduled see Dr. Grover on coming Monday for evaluation Medications: Aspirin 1 Tablet (of 81 mg) Tablet, enteric coated Oral daily, Benazepril HCl 1 Tablet (of 10 mg) Oral daily, Carvedilol 1 Tablet (of 6.25 mg) Oral b.i.d., Cholecalciferol 1 Tablet (of 100 mcg ) Oral daily, Crestor 1 Tablet (of 10 mg) Oral daily, hydroCHLOROthiazide 0.5 Tablet (of 25 mg) Oral daily, Naproxen 1 Tablet (of 500 mg) Oral b.i.d., traMADol HCl 1 Tablet (of 50 mg) Oral four times a day Allergies: Erythromycin Base and Morphine Derivatives. Review of Systems: Review of Systems is not available for this patient. Vital Signs: Performed on Sep 29, 2020 10:20 Height - 72.00 in Weight - 214.0 lbs (LOW) BSA - 2.19 sq.m BMI - 29.02 Temperature - 97.8 F (LOW) Pulse - 75 /min Respiration - 17 /min BP - 138/81 mm(hg) O2 Sat - 97 % Pain - 6 Performance Status: 1 - No physically strenuous activity, but ambulatory and able to carry out light or sedentary work (e.g. office work, light house work). (ECOG) Physical Examination: ENMT - No mouth sores, no thrush, no jaundice, Respiratory - Lungs are clear to auscultation, Cardiovascular - Regular rate and rhythm of heart, Abdomen - Soft, bowel sounds present, Extremities - No visible edema. Lab/Imaging: Test performed on Sep 01, 2020 11:43 Sodium 140 mmol/L Potassium 4.3 mmol/L Chloride 101 mmol/L CO2 32 mmol/L Anion Gap 11.3 BUN 14 mg/dL Creatinine 0.9 mg/dL Cr Clearance (Est) 111.4700 mL/min eGFR 84.4 mL/min Glucose 90 mg/dL Osmolality - Calculated 290 mOsm/kg Calcium 9.5 mg/dL Protein, Total 6.9 g/dL Albumin 4.3 g/dL Globulin 2.6 g/dL Bilirubin, Total 0.4 mg/dL ALT (SGPT) 20 U/L AST (SGOT) 24 U/L Alkaline Phosphatase 48 IU/L WBC 3.9 10 3/uL RBC 4.48 10 6/uL HGB 13.1 g/dL HCT 40.7 % MCV 90.8 fL MCH 29.2 pg MCHC 32.2 g/dL RDW 14.8 % Platelet Count 176 10 3/cmm MPV 9.2 fL Neutrophils 2.50 10 3/uL Lymphocytes 0.5 10 3/uL Monocytes 0.5 10 3/uL Eosinophils 0.3 10 3/uL Basophils 0.0 10 3/uL Neutrophil % 64.9 % Lymphocyte % 13.5 % Monocyte % 13.5 % Eosinophil % 7.0 % Basophils % 0.8 % NRBC % 0 % Test performed on Jul 14, 2020 15:48 CEA 1.5 ng/mL Impression: moderately differentiated, invasive adenocarcinoma involving rectum per colonoscopy done on June 23, 2020 CT scan of chest abdomen pelvis done on June 23, 2020 showed no evidence of metastatic disease and rectal mucosal thickening consistent with rectal mass Clinically T2 versus T3, NX, MX Status post pacemaker History of rheumatic fever at age 8 with no long-term cardiac complication Started on combined chemoradiation with oral Xeloda 1800 mg p.o. twice daily 5 days a week on July 28, 2020, dose was reduced to 1500 mg p.o. twice daily 5 days a week on August 13, 2019 because of grade 1 hand-foot syndrome and diarrhea. Mr. Holder completed chemoradiation on September 01, 2020. He will now be referred back to Dr. Grover for further plan of care. Plan: Discussed with patient regarding his labs white blood count 4.7 hemoglobin 13.3 hematocrit 42 platelets 211,000 CMP within normal limits Clinically, patient doing well now recovering from combined chemoradiation given as neoadjuvant therapy for rectal cancer. Patient is scheduled see Dr. Grover on coming Monday. And we will see him back 2 weeks after his surgery for evaluation regarding adjuvant therapy if needed. Signed By: Adelina Bundy M.D. <<Signature on File>>
--- NOTE | 2020-10-09 09:56 | ONCRAD EPV_ITS ---
Radiation Oncology Follow-Up Note Patient Name: Pramod Domínguez Date of : 1955 Date of Service: 10/09/2020 Attending Physician: Yariel Pelayo M.D. Pramod Domínguez returned to my office this morning for a routinely scheduled post radiotherapy follow-up appointment. He completed radiotherapy in August for the management of a clinical stage IIA (T3N0) versus stage IIIB (T3N1) moderately differentiated adenocarcinoma of the rectum. Daily radiotherapy was administered between the dates of July 28, 2020 through September 052020. A prescribed dose of 50 Gy was delivered in 25 fractions encompassing 36 elapsed days. On review of systems, the patient denied any gastrointestinal complaints except for intermittent constipation and abdominal cramping. On physical examination, the patient weighed 217 pounds. The temperature is 97.3???F. His blood pressure was 118/72 mmHg. The pulse was 69 bpm and his respiratory rate was 18 breaths per minute. Rectal exam was deferred. In summary, Mr. Domínguez returned for a routine post-radiotherapy follow-up. His most recent CEA was 1.8 ug/L. He has been scheduled for surgery (10/27/20). Signed by: Dr. Yariel Pelayo 10/09/2020 9:55:55 AM
== END 2020-10-28 23:59 | disposition home or self-care (01) ==
LOC: ONCMED 05:40
PROVIDERS: Internal Medicine Hematology & Oncology; PCP Family Medicine; Visit Provider Radiology Radiation Oncology
DX: C20 Malignant neoplasm of rectum (principal); Z79.899 Other long term (current) drug therapy; Z92.21 Personal history of antineoplastic chemotherapy; Z92.3 Personal history of irradiation; Z95.0 Presence of cardiac pacemaker
CPT/HCPCS: 36415; 80053; 82378; 85025; 99024; 99214

== ENCOUNTER → 2020-10-23 16:28 | Outpatient (BNVA) | payer MEDICARE, SELFPAY | PROVIDERS: PCP Family Medicine; Visit Provider Colon & Rectal Surgery | DX: Z01.818 Encounter for other preprocedural examination (principal) | CPT/HCPCS: 87635 ==

== ENCOUNTER 2020-12-02 05:56 | Outpatient (CLI) | payer MEDICARE, SELFPAY ==
[2020-12-02 14:30] LABS: Basophils % 0.8 %; Eosinophils # 0.6 10^3/uL (0.0-0.8); Eosinophils % 11.9 %; Hematocrit 41.4 % (42.0-52.0); Lymphocytes % 20.2 %; Mean Corpuscular HGB Conc 31.4 g/dL (30.0-36.0); Mean Corpuscular Hemoglobin 28.8 pg (28.0-34.0); Mean Corpuscular Volume 91.6 fL (80-94); Mean Platelet Volume 9.6 fL (7.4-10.4); Monocytes # 0.4 10^3/uL (0.2-0.9); Monocytes % 8.7 %; Neutrophils # 2.87 10^3/uL (1.8-7.7); Neutrophils % 58.2 %; Nucleated Red Blood Cells % 0 %; Platelet Count 215 10^3/cmm (130-400); Red Blood Count 4.52 10^6/uL (4.1-5.3); Red Cell Distribution Width 12.6 % (12.1-15.1); White Blood Count 4.9 10^3/uL (4.0-10.0)
[2020-12-02 14:44] LABS: Alanine Aminotransferase 11 U/L (0-41); Albumin Level 3.8 g/dL (3.5-5.2); Alkaline Phosphatase 54 IU/L (40-130); Anion Gap 10.1 (5-19); Aspartate Amino Transferase 14 U/L (0-40); Blood Urea Nitrogen 14 mg/dL (8-23); Calcium 8.8 mg/dL (8.5-10.5); Carbon Dioxide 30 mmol/L (22-29); Chloride 105 mmol/L (98-107); Globulin 2.5 g/dL (1.3-4.6); Glomerular Filtration Rate 60.4 mL/min (90-130); Glucose 79 mg/dL (65-115); Osmolality Calculated 291 mOsm/kg (285-295); Potassium 4.1 mmol/L (3.5-5.1); Sodium 141 mmol/L (136-145); Total Bilirubin 0.3 mg/dL (0.15-1.2); Total Protein 6.3 g/dL (6.6-8.7)
--- NOTE | 2020-12-03 10:26 | ONC FU_ITS ---
Dr. Bundy follow up note Patient: Pramod Leggett Unit #: [id number]: 1955 Dicatated By: Adelina Bundy M.D.Date of Visit:December 02, 2020 Onc Med Follow-up/Prog Note History of Present Illness: Mr. Leggett is a 64-year-old gentleman with 3 month history of change in bowel habits. He underwent a colonoscopy on June 23, 2020 which showed circumferential malignant appearing mass at 8 cm. The pathology report confirmed invasive adenocarcinoma, moderately differentiated. A CEA checked on June 23, 2020 was 2.0. Mr Leggett underwent CT scan of chest abdomen pelvis on June 23, 2020 which showed rectal mucosal thickening consistent with rectal mass; no lymphadenopathy and no metastatic disease to liver. Mr Leggett was referred to Dr. Grover in [facility]. Dr Grover's impression was tumors likely at least T3 and MRI scan of pelvis was suggested but not done because of patient has pacemaker. Preop chemoradiation was recommended to downstage the tumor. Patient has no family history of colon cancer Patient has history of rheumatic fever at age 8 but no long-term cardiac complication. Status post pacemaker for AV block. Patient denies smoking or alcohol use. Started on combined chemoradiation with oral Xeloda on on July 28, 2020. His Xeloda was placed on hold for diarrhea and hand foot syndrome on August 10, 2020 and then his dose was reduced to 1500 mg twice daily with radiation at his followup on 08/17/2020. He was able to complete chemoradiation with the Xeloda at 1500 mg twice daily. He completed radiation therapy September 01, 2020 Patient underwent robotic assisted sigmoid colon and upper rectum, extended low anterior resection and loop ileostomy for rectal cancer on October 27, 2020 and final pathology report came back moderately differentiated adenocarcinoma, carcinoma extends through muscularis propria and into pericolonic fat, clear surgical margins, no tumor perforation, treatment effect present, residual cancer and evidence of tumor regression, partial response. No lymphovascular invasion seen, ypT3, 1 out of 31 lymph node is positive ypN1 Came for follow-up, denies any specific complaints today except generalized weakness and fatigue but no nausea or vomiting no diarrhea or constipation, no fever chills. No melena or hematochezia, colostomy bag is working fine., Tolerated robotic assisted LAR well now healing well Medications: Aspirin 1 Tablet (of 81 mg) Tablet, enteric coated Oral daily, Benazepril HCl 1 Tablet (of 10 mg) Oral daily, Carvedilol 1 Tablet (of 6.25 mg) Oral b.i.d., Cholecalciferol 1 Tablet (of 100 mcg ) Oral daily, Crestor 1 Tablet (of 10 mg) Oral daily, hydroCHLOROthiazide 0.5 Tablet (of 25 mg) Oral daily, Naproxen 1 Tablet (of 500 mg) Oral b.i.d., traMADol HCl 1 Tablet (of 50 mg) Oral four times a day Allergies: Erythromycin Base and Morphine Derivatives. Review of Systems: Review of Systems is not available for this patient. Vital Signs: Performed on December 02, 2020 14:57 Height - 72.00 in Weight - 209 lbs (LOW) BSA - 2.17 sq.m BMI - 28.35 Temperature - 97.6 F (LOW) Pulse - 68 /min Respiration - 18 /min BP - 115/75 mm(hg) O2 Sat - 98 % Pain - 0 Performance Status: 0 - Fully active, able to carry on all predisease activities without restrictions. (ECOG) Physical Examination: ENMT - No mouth sores, no thrush, no jaundice, Respiratory - Lungs are clear to auscultation, Cardiovascular - Regular rate and rhythm of heart, Abdomen - Soft, bowel sounds present, Colostomy bag functioning fine, Extremities - No visible edema. Lab/Imaging: Test performed on Sep 01, 2020 11:43 Sodium 140 mmol/L Potassium 4.3 mmol/L Chloride 101 mmol/L CO2 32 mmol/L Anion Gap 11.3 BUN 14 mg/dL Creatinine 0.9 mg/dL Cr Clearance (Est) 111.4700 mL/min eGFR 84.4 mL/min Glucose 90 mg/dL Osmolality - Calculated 290 mOsm/kg Calcium 9.5 mg/dL Protein, Total 6.9 g/dL Albumin 4.3 g/dL Globulin 2.6 g/dL Bilirubin, Total 0.4 mg/dL ALT (SGPT) 20 U/L AST (SGOT) 24 U/L Alkaline Phosphatase 48 IU/L WBC 3.9 10 3/uL RBC 4.48 10 6/uL HGB 13.1 g/dL HCT 40.7 % MCV 90.8 fL MCH 29.2 pg MCHC 32.2 g/dL RDW 14.8 % Platelet Count 176 10 3/cmm MPV 9.2 fL Neutrophils 2.50 10 3/uL Lymphocytes 0.5 10 3/uL Monocytes 0.5 10 3/uL Eosinophils 0.3 10 3/uL Basophils 0.0 10 3/uL Neutrophil % 64.9 % Lymphocyte % 13.5 % Monocyte % 13.5 % Eosinophil % 7.0 % Basophils % 0.8 % NRBC % 0 % Test performed on Jul 14, 2020 15:48 CEA 1.5 ng/mL Impression: moderately differentiated, invasive adenocarcinoma involving rectum per colonoscopy done on June 23, 2020 CT scan of chest abdomen pelvis done on June 23, 2020 showed no evidence of metastatic disease and rectal mucosal thickening consistent with rectal mass Clinically T2 versus T3, NX, MX Status post pacemaker History of rheumatic fever at age 8 with no long-term cardiac complication Started on combined chemoradiation with oral Xeloda 1800 mg p.o. twice daily 5 days a week on July 28, 2020, dose was reduced to 1500 mg p.o. twice daily 5 days a week on August 13, 2019 because of grade 1 hand-foot syndrome and diarrhea. Mr. leggett completed chemoradiation on September 01, 2020. And underwent robotic assisted LAR with loop ileostomy on October 27, 2020 and final pathology report showed moderately differentiated adenocarcinoma, carcinoma extends through muscularis propria and into pericolonic fat, treatment effect was present, no lymphovascular invasion seen, clear surgical margins, ypT3 and 1 out of 31 lymph node positive for metastatic disease, ypN1, Stage ypIII Plan: Discussed with patient regarding his labs white blood count 4.9 hemoglobin 13 hematocrit 41.4 platelets 215,000 CMP within normal limits Clinically, patient is doing well, now recovering from robotic assisted LAR with loop ileostomy, and, pathology showed persistent disease T3 lesion and 1 out of 31 lymph node shows metastasis,, as per NCCN guidelines, patient will need adjuvant chemotherapy, either with FOLFOX for 4 months e.g. total 6-month of therapy including neoadjuvant therapy. Or CAPEOX x3 cycles, patient opted for FOLFOX, all the side effect possible benefits associated with chemotherapy including but not limited to bone marrow suppression, mouth sores, diarrhea, jaundice, skin rash especially with 5-FU and peripheral neuropathy, cold sensitivity especially with oxaliplatin. Patient expressed full understanding, further teaching will be done by chemotherapy nurse. We will obtain approval from his insurance for the treatment in the meantime request Port-A-Cath placement. Patient will return to clinic 1 week after chemotherapy is initiated with CBC CMP Signed By: Adelina Bundy M.D. <<Signature on File>>
== END 2020-12-02 05:57 | disposition home or self-care (01) ==
LOC: ONCMED 05:58
PROVIDERS: PCP Family Medicine; Visit Provider Internal Medicine Hematology & Oncology
DX: C20 Malignant neoplasm of rectum (principal); C77.8 Secondary and unspecified malignant neoplasm of lymph nodes of multiple regions; Z95.0 Presence of cardiac pacemaker; Z92.21 Personal history of antineoplastic chemotherapy; Z92.3 Personal history of irradiation; Z79.899 Other long term (current) drug therapy
CPT/HCPCS: 80053; 85025; 99214

== ENCOUNTER 2020-12-04 05:44 | Outpatient (CLI) | payer MEDICARE, SELFPAY ==
--- NOTE | 2020-12-04 10:27 | ONCRAD EPV_ITS ---
Radiation Oncology Follow-Up Note Patient Name: Pramod Domínguez Date of : 1955 Date of Service: 12/04/2020 Attending Physician: Yariel Pelayo M.D. Pramod Domínguez returned to my office this morning for a routinely scheduled post radiotherapy follow-up appointment. He completed radiotherapy in August for the management of a clinical stage IIA (T3N0) versus stage IIIB (T3N1) moderately differentiated adenocarcinoma of the rectum. Daily radiotherapy was administered between the dates of July 28, 2020 through September 052020. A prescribed dose of 50 Gy was delivered in 25 fractions encompassing 36 elapsed days. The pathology report was discussed with the patient and his . He has been scheduled to begin adjuvant chemotherapy. Signed by: Dr. Yariel Pelayo 12/04/2020 10:26:14 AM
== END 2020-12-04 05:45 | disposition home or self-care (01) ==
LOC: ONCMED 05:46
PROVIDERS: PCP Family Medicine; Visit Provider Radiology Radiation Oncology
DX: C20 Malignant neoplasm of rectum (principal); Z79.899 Other long term (current) drug therapy; Z92.3 Personal history of irradiation
CPT/HCPCS: 87635; 99024

== ENCOUNTER 2020-12-10 12:07 | Day surgery (SDC) | payer MEDICARE, SELFPAY ==
[2020-12-09 09:39] VITALS: BMI 28.5
--- NOTE | 2020-12-10 | SCC_ITS ---
Procedure Done: Placement of PowerPort in the right subclavian vein Fluoroscopic guidance and interpretation for placement of catheter in the superior vena cava 21.4 seconds of fluoroscopic guidance, for a cumulative dose of 10.80 mGy, was provided to Dr. Farris by the radiology department. C-arm images of the chest were saved for the patient's permanent record. [facility]
--- NOTE | 2020-12-10 | SC_ITS ---
WS: [id number] Port-A-Cath insertion, 12/10/2020 Clinical Data: Placement of PowerPort in the right subclavian vein Comparison: None. Findings: A right Port-A-Cath has been inserted via the right subclavian vein and it ends in the superior vena cava. SC/C-arm FL for CVA [id number] Impression: Right Port-A-Cath insertion.
[2020-12-10 12:28] VITALS: BP 115/72; PULSE 70; RESP 18; TEMP 36.4; O2SAT 97
[2020-12-10] MEDS: sodium chloride 0.9% 1,000 ML 30 ML IV (12:52)
--- NOTE | 2020-12-10 13:07 | P.ANESASSM_ITS ---
Pre-Anesthetic Assessment Pre-Anesthetic Assessment: Height/Weight: Height 1.83 m Weight 95.254 kg Temp Pulse Resp BP Pulse Ox 97.6 F 70 18 115/72 97 12/10/20 12:28 12/10/20 12:28 12/10/20 12:28 12/10/20 12:28 12/10/20 12:28 Preop Diagnosis: rectal cancer Proposed Procedure: Operation Date: 12/10/20 14:00 Proposed Procedures p port a cath placement 58274 c20(Not Applicable) - Peterson Farris MD Familial anesthetic complications: None Was Beta Imer taken within 24 hours: Yes Was Clonidine taken within 24 hours: N/A Last intake: Intake Last Liquid Date 12/09/20 Last Liquid Time 23:00 Last Solid Date 12/09/20 Last Solid Time 23:00 Social: Social History: No alcohol and No tobacco Exam: Pre-Anes Outpt Exam: alert, oriented x 3, clear to auscultation bilaterally and regular rate & rhythm Airway: Cervical ROM: WNL MP: 3 Dentition: Full CV/HEM: CV/HEM: HTN Comments: cardiac pacer and ICD - states he is paced, but 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 50% stenosis (characterized as mild CAD) 01/13/20 echo - EF 42% Metabolic: Metabolic: Hyperlipidemia Anesthetic Plan: ASA status: 4 Anesthesia: MAC Risk of > 500 ml blood loss (7ml/kg in children): No Meds/Allergies Current Medications: Current Medications Generic Name Dose Route Start Last Admin Trade Name Freq PRN Reason Stop Dose Admin Sodium Chloride 1,000 mls @ 30 ml s/hr 12/10/20 12:30 12/10/20 12:52 Sodium Chloride 0.9% IV 12/11/20 12:29 30 mls/hr .Q24H YOVANI Administration PFSH Anesthesia PFSH: Medical History Cardiomyopathy Hepatitis A Hypertension Myocardial infarction Rectal cancer Surgical History H/O neck surgery History of back surgery History of carpal tunnel release left, 08/15/2019 right, 05/23/2019 History of low anterior resection of rectum Hx of cardiac pacemaker Hx of colonoscopy (11/24/20) Hx of reduction of orbital fracture Ileostomy status Family History Mother CAD (coronary artery disease) Cancer Dementia Hyperlipidemia Hypertension Grandfather Diabetes Hyperlipidemia Hypertension Father Hyperlipidemia Hypertension Denies family history of Clotting disorder Chronic kidney disease (CKD) Anesthesia complication Bleeding disorder Family history of premature coronary artery disease Lung disease Stroke Social History Smoking and tobacco status: never smoked Alcohol intake: current Alcohol intake frequency: few times a week Household members: spouse Marital status: Current occupational status: retired History of recent travel: No Data Anesthesia Cardiac Studies: No Data to Display
--- NOTE | 2020-12-10 13:18 | W.PM.OPSUD ---
Surgery/Procedure H&P Update DATE OF PROCEDURE: December 10, 2020 DATE H&P PERFORMED: 12/04/20 H&P UPDATE INFORMATION: I have reviewed H&P completed within last 30 days, I have examined patient prior to procedure and No changes to prior documentation PREOP DIAGNOSIS: rectal cancer PLANNED PROCEDURE: Operation Date: 12/10/20 14:00 Proposed Procedures p port a cath placement [id number] c20(Not Applicable) - Peterson Farris MD
[2020-12-10] MEDS: heparin, porcine 1,000 unit/mL INJ 10 mL 10000 UNIT IRRIGATION (14:29)
[2020-12-10] MEDS: lidocaine 1% INJ 20 mL INJECTION (14:29)
--- NOTE | 2020-12-10 14:34 | PM.OP ---
Operative Report Date of procedure: December 10, 2020 Pre-op Diagnosis: rectal cancer Post-op diagnosis: same Procedure Done: Placement of PowerPort in the right subclavian vein Fluoroscopic guidance and interpretation for placement of catheter in the superior vena cava Surgeon: Peterson Farris Anesthesia: MAC Condition: stable Disposition: PACU Procedure: The patient was taken to the Operating Room and the chest and neck bilaterally were prepped and draped in a sterile manner after the antibiotic had been administered and shoulder rolls had been placed. A total of 10 mL of 1% lidocaine with 0.5% Marcaine was infiltrated under the clavicle on the right side at the site of the planned entry into the subclavian vein. An introducer needle was then used to access the subclavian vein under the clavicle and after withdrawing blood syringe was removed and a guidewire passed under fluoroscopy into the superior vena cava. The site of the planned port was then marked on the chest and a 15 blade was used to make a 3 cm skin incision this was extended into the subcutaneous tissue using electrocautery and a subcutaneous pocket over the pectoralis fascia was created 2-0 Vicryl suture was used to suture the port to the pectoral fascia in the pocket on 3 sides. The catheter, after having been flushed with hep saline, was attached to the tunneler and a tunnel created between the port site and the subclavian vein entry site. Under fluoroscopy the dilator sheath was passed over the guidewire into the proximal superior vena cava. The inner dilator was removed and the sheath left behind and~ the catheter was introduced through the peel-away sheath with the tip in the superior vena cava. The peel-away sheath was removed. The proximal end of the catheter was cut to the right size and was attached to the port. Using a Jackson needle the port was accessed, it withdrew blood easily and flushed easily. A final 5cc of heparin was used to flush the PowerPort. The subcutaneous tissue was approximated using interrupted 3-0 Vicryl sutures and the skin at the introducer site and the port site was closed using subcuticular running 4-0 Monocryl sutures. Surgical glue was applied and the patient was stable throughout the procedure. Fluoroscopic guidance and interpretation was performed for introduction of the guidewire in the right subclavian vein, passage of dilator and placement of catheter tip in the distal superior vena cava.
[2020-12-10 14:40] VITALS: BP 116/68; PULSE 78; RESP 14; TEMP 36.1; O2SAT 96
[2020-12-10 14:45] VITALS: BP 115/69; PULSE 65; RESP 11; O2SAT 93
[2020-12-10 14:50] VITALS: BP 104/78; PULSE 68; RESP 17; O2SAT 97
[2020-12-10 14:55] VITALS: BP 121/80; PULSE 69; RESP 18; TEMP 36.5; O2SAT 99
[2020-12-10 15:13] VITALS: BP 127/78; PULSE 70; RESP 16; TEMP 36.4; O2SAT 98
--- NOTE | 2020-12-10 15:15 | SUR.PHASEII ---
15:15 Tarun Burnett ( [employer] occupational health technician ) contacted and informed of patient's surgery and functioning pacemaker rhythm. Patient OK to be discharged without pacemaker investigation.
--- NOTE | 2020-12-10 15:26 | SUR.PHASEII ---
cancer treatment center nurse contacted and message left for doctor Bundy that his patient had successful port placement.
--- NOTE | 2020-12-10 18:04 | ANE.PACU2 ---
Inpatient post-anesthesia follow up: Airway intact: Yes Vital signs: Temperature 97.6 F Pulse Rate 70 Respiratory Rate 16 Blood Pressure 127/78 Pulse Oximetry 98 Oxygen Delivery Me thod Room Air Oxygen Flow Rate Fraction of Inspir ed Oxygen Hydration adequate: Yes Nausea and vomiting: No Pain level: 2 Mental status: Baseline
== END 2020-12-10 16:00 | disposition home or self-care (01) ==
PROVIDERS: PCP Family Medicine; Visit Provider Surgery
PROC: (CPT 36561; principal; 2020-12-10 13:50)
DX: C20 Malignant neoplasm of rectum (principal); I10 Essential (primary) hypertension; I25.2 Old myocardial infarction; Z79.82 Long term (current) use of aspirin
CPT/HCPCS: 36561; 77001; C1788; J0690; J1644; J2704; J3010; J3490; J7030

== ENCOUNTER 2021-01-27 05:54 | Outpatient (RCR) | payer MEDICARE, SELFPAY ==
[2020-12-29 11:12] LABS: Basophils % 0.7 %; Eosinophils # 0.2 10^3/uL (0.0-0.8); Eosinophils % 4.9 %; Hematocrit 45.2 % (42.0-52.0); Hemoglobin 14.3 g/dL (11.7-16.6); Lymphocytes # 0.9 10^3/uL (0.8-4.8); Lymphocytes % 19.7 %; Mean Corpuscular HGB Conc 31.6 g/dL (30.0-36.0); Mean Corpuscular Hemoglobin 27.9 pg (28.0-34.0); Mean Corpuscular Volume 88.3 fL (80-94); Mean Platelet Volume 9.6 fL (7.4-10.4); Monocytes # 0.4 10^3/uL (0.2-0.9); Monocytes % 8.6 %; Neutrophils # 2.98 10^3/uL (1.8-7.7); Neutrophils % 65.9 %; Nucleated Red Blood Cells % 0 %; Platelet Count 225 10^3/cmm (130-400); Red Blood Count 5.12 10^6/uL (4.1-5.3); Red Cell Distribution Width 12.5 % (12.1-15.1); White Blood Count 4.5 10^3/uL (4.0-10.0)
[2020-12-29 11:29] LABS: Alanine Aminotransferase 13 U/L (0-41); Albumin Level 4.2 g/dL (3.5-5.2); Alkaline Phosphatase 58 IU/L (40-130); Anion Gap 12.1 (5-19); Aspartate Amino Transferase 16 U/L (0-40); Blood Urea Nitrogen 20 mg/dL (8-23); Calcium 9.1 mg/dL (8.5-10.5); Carbon Dioxide 30 mmol/L (22-29); Chloride 104 mmol/L (98-107); Globulin 2.8 g/dL (1.3-4.6); Glomerular Filtration Rate 84.2 mL/min (90-130); Glucose 112 mg/dL (65-115); Osmolality Calculated 297 mOsm/kg (285-295); Potassium 4.1 mmol/L (3.5-5.1); Sodium 142 mmol/L (136-145); Total Bilirubin 0.5 mg/dL (0.15-1.2)
[2020-12-30] MEDS: dextrose 5% 250 ML 75 ML IV (09:05)
[2020-12-30] MEDS: palonosetron 0.25 mg/5 mL SDV IV (09:05)
[2021-01-07 14:05] LABS: Basophils % 0.7 %; Eosinophils # 0.5 10^3/uL (0.0-0.8); Eosinophils % 8.9 %; Hematocrit 39.8 % (42.0-52.0); Hemoglobin 13.1 g/dL (11.7-16.6); Lymphocytes # 0.8 10^3/uL (0.8-4.8); Lymphocytes % 15.6 %; Mean Corpuscular HGB Conc 32.9 g/dL (30.0-36.0); Mean Corpuscular Hemoglobin 28.9 pg (28.0-34.0); Mean Corpuscular Volume 87.7 fL (80-94); Mean Platelet Volume 9.6 fL (7.4-10.4); Monocytes # 0.5 10^3/uL (0.2-0.9); Monocytes % 8.7 %; Neutrophils # 3.55 10^3/uL (1.8-7.7); Neutrophils % 65.7 %; Nucleated Red Blood Cells % 0 %; Platelet Count 168 10^3/cmm (130-400); Red Blood Count 4.54 10^6/uL (4.1-5.3); Red Cell Distribution Width 12.4 % (12.1-15.1); White Blood Count 5.4 10^3/uL (4.0-10.0)
[2021-01-07 14:40] LABS: Alanine Aminotransferase 11 U/L (0-41); Alkaline Phosphatase 53 IU/L (40-130); Anion Gap 14.9 (5-19); Aspartate Amino Transferase 12 U/L (0-40); Blood Urea Nitrogen 16 mg/dL (8-23); Calcium 8.8 mg/dL (8.5-10.5); Carbon Dioxide 27 mmol/L (22-29); Chloride 104 mmol/L (98-107); Globulin 2.5 g/dL (1.3-4.6); Glomerular Filtration Rate 96.4 mL/min (90-130); Glucose 96 mg/dL (65-115); Osmolality Calculated 295 mOsm/kg (285-295); Potassium 3.9 mmol/L (3.5-5.1); Sodium 142 mmol/L (136-145); Total Bilirubin 0.3 mg/dL (0.15-1.2); Total Protein 6.5 g/dL (6.6-8.7)
[2021-01-14 08:35] LABS: Basophils % 1.1 %; Eosinophils # 0.3 10^3/uL (0.0-0.8); Eosinophils % 12.4 %; Hematocrit 38.3 % (42.0-52.0); Hemoglobin 12.3 g/dL (11.7-16.6); Lymphocytes # 0.6 10^3/uL (0.8-4.8); Lymphocytes % 20.4 %; Mean Corpuscular HGB Conc 32.1 g/dL (30.0-36.0); Mean Corpuscular Hemoglobin 28.2 pg (28.0-34.0); Mean Corpuscular Volume 87.8 fL (80-94); Mean Platelet Volume 9.4 fL (7.4-10.4); Monocytes # 0.3 10^3/uL (0.2-0.9); Monocytes % 12.4 %; Neutrophils # 1.48 10^3/uL (1.8-7.7); Neutrophils % 53.7 %; Nucleated Red Blood Cells % 0 %; Platelet Count 154 10^3/cmm (130-400); Red Blood Count 4.36 10^6/uL (4.1-5.3); Red Cell Distribution Width 12.4 % (12.1-15.1); White Blood Count 2.8 10^3/uL (4.0-10.0)
[2021-01-14 09:05] LABS: Alanine Aminotransferase 11 U/L (0-41); Albumin Level 3.8 g/dL (3.5-5.2); Alkaline Phosphatase 48 IU/L (40-130); Aspartate Amino Transferase 14 U/L (0-40); Blood Urea Nitrogen 18 mg/dL (8-23); Calcium 8.4 mg/dL (8.5-10.5); Carbon Dioxide 26 mmol/L (22-29); Chloride 107 mmol/L (98-107); Globulin 2.2 g/dL (1.3-4.6); Glomerular Filtration Rate 96.4 mL/min (90-130); Glucose 93 mg/dL (65-115); Osmolality Calculated 296 mOsm/kg (285-295); Sodium 142 mmol/L (136-145); Total Bilirubin 0.3 mg/dL (0.15-1.2)
[2021-01-21 08:54] LABS: Basophils # 0.1 10^3/uL (0.0-0.1); Basophils % 1.7 %; Eosinophils # 0.4 10^3/uL (0.0-0.8); Eosinophils % 12.7 %; Hematocrit 40.4 % (42.0-52.0); Hemoglobin 12.9 g/dL (11.7-16.6); Lymphocytes # 0.6 10^3/uL (0.8-4.8); Lymphocytes % 21.1 %; Mean Corpuscular HGB Conc 31.9 g/dL (30.0-36.0); Mean Corpuscular Hemoglobin 28.2 pg (28.0-34.0); Mean Corpuscular Volume 88.4 fL (80-94); Mean Platelet Volume 9.3 fL (7.4-10.4); Monocytes # 0.4 10^3/uL (0.2-0.9); Monocytes % 12.7 %; Neutrophils # 1.54 10^3/uL (1.8-7.7); Neutrophils % 51.5 %; Nucleated Red Blood Cells % 0 %; Platelet Count 217 10^3/cmm (130-400); Red Blood Count 4.57 10^6/uL (4.1-5.3); Red Cell Distribution Width 12.9 % (12.1-15.1)
[2021-01-21 09:17] LABS: Alanine Aminotransferase 17 U/L (0-41); Albumin Level 4.1 g/dL (3.5-5.2); Alkaline Phosphatase 54 IU/L (40-130); Anion Gap 12.7 (5-19); Aspartate Amino Transferase 17 U/L (0-40); Blood Urea Nitrogen 17 mg/dL (8-23); Calcium 8.9 mg/dL (8.5-10.5); Carbon Dioxide 26 mmol/L (22-29); Chloride 103 mmol/L (98-107); Globulin 2.2 g/dL (1.3-4.6); Glomerular Filtration Rate 84.2 mL/min (90-130); Glucose 123 mg/dL (65-115); Osmolality Calculated 289 mOsm/kg (285-295); Potassium 3.7 mmol/L (3.5-5.1); Sodium 138 mmol/L (136-145); Total Bilirubin 0.3 mg/dL (0.15-1.2); Total Protein 6.3 g/dL (6.6-8.7)
[2021-01-25 08:27] LABS: Basophils # 0.1 10^3/uL (0.0-0.1); Basophils % 1.1 %; Eosinophils # 0.3 10^3/uL (0.0-0.8); Eosinophils % 7.2 %; Hematocrit 42.3 % (42.0-52.0); Hemoglobin 13.8 g/dL (11.7-16.6); Lymphocytes # 0.7 10^3/uL (0.8-4.8); Lymphocytes % 14.9 %; Mean Corpuscular HGB Conc 32.6 g/dL (30.0-36.0); Mean Corpuscular Hemoglobin 28.7 pg (28.0-34.0); Mean Corpuscular Volume 87.9 fL (80-94); Mean Platelet Volume 9.5 fL (7.4-10.4); Monocytes # 0.4 10^3/uL (0.2-0.9); Monocytes % 9.9 %; Neutrophils # 2.95 10^3/uL (1.8-7.7); Neutrophils % 66.4 %; Nucleated Red Blood Cells % 0 %; Platelet Count 191 10^3/cmm (130-400); Red Blood Count 4.81 10^6/uL (4.1-5.3); Red Cell Distribution Width 12.9 % (12.1-15.1); White Blood Count 4.4 10^3/uL (4.0-10.0)
[2021-01-25] MEDS: famotidine 20 mg/2 mL INJ IVP (08:30)
[2021-01-25] MEDS: palonosetron 0.25 mg/5 mL SDV IVP (08:40)
[2021-01-25] MEDS: dextrose 5% 250 ML 75 ML IV (08:40)
--- NOTE | 2021-01-28 22:27 | ONC FU_ITS ---
[facility]enn[facility] Abbott Patient Note Patient: Pramod Domínguez Unit #: [id number]: 1955 Dictated By: Navya JohnstonDate of Visit: Jan 07, 2021 Onc MED Follow-Up/Prog Note Chief Complaint: Rectal cancer History of Present Illness: Mr. Domínguez is a 64-year-old gentleman with 3 month history of change in bowel habits. He underwent a colonoscopy on June 23, 2020 which showed circumferential malignant appearing mass at 8 cm. The pathology report confirmed invasive adenocarcinoma, moderately differentiated. A CEA checked on June 23, 2020 was 2.0. Mr Domínguez underwent CT scan of chest abdomen pelvis on June 23, 2020 which showed rectal mucosal thickening consistent with rectal mass; no lymphadenopathy and no metastatic disease to liver. Mr Domínguez was referred to Dr. Grover in [facility]. Dr Grover's impression was tumors likely at least T3 and MRI scan of pelvis was suggested but not done because of patient has pacemaker. Preop chemoradiation was recommended to downstage the tumor. Patient has no family history of colon cancer Patient has history of rheumatic fever at age 8 but no long-term cardiac complication. Status post pacemaker for AV block. Patient denies smoking or alcohol use. Started on combined chemoradiation with oral Xeloda on on July 28, 2020. His Xeloda was placed on hold for diarrhea and hand foot syndrome on August 10, 2020 and then his dose was reduced to 1500 mg twice daily with radiation at his followup on 08/17/2020. He was able to complete chemoradiation with the Xeloda at 1500 mg twice daily. He completed radiation therapy September 01, 2020 Mr Domínguez underwent robotic assisted sigmoid colon and upper rectum, extended low anterior resection and loop ileostomy for rectal cancer on October 27, 2020 and final pathology report came back moderately differentiated adenocarcinoma, carcinoma extends through muscularis propria and into pericolonic fat, clear surgical margins, no tumor perforation, treatment effect present, residual cancer and evidence of tumor regression, partial response. No lymphovascular invasion seen, ypT3, 1 out of 31 lymph node is positive ypN1. Mr. España has been advised to pursue adjuvant FOLFOX. He began his 1st cycle on December 30, 2020. Mr. Holder is here today for follow-up 1 week post starting chemotherapy with FOLFOX on December 30, 2020. He states overall he is doing pretty good. He states that he had slight neuropathy in his hands when he tried to get ice cubes at the freezer but states otherwise he is doing well. He has had no problems with his ostomy. He states is working well. He denies any increased stool output or change in texture/consistency. He denies any nausea or vomiting. He has had no mouth sores, sore throat or difficulty swallowing. He denies any skin changes or rashes. Has had no skin peeling. He states his urination is normal for him. His appetite is good elevated things tend to taste little funny at times but states that is improving now. He states his energy is fair. He can do all his ADLs without assistance. His ECOG is 1. Past Medical History: Cardiomyopathy Hypertension Myocardial infarction Past Surgical History: Back surgery Bilateral carpal tunnel release Colonoscopy Neck surgery Right subclavian PowerPort placement???Dr. Farris???STEPHANIE in 2020 Pacemaker placement in 2013 Allergies: Erythromycin Base and Morphine Derivatives. Medications: Aspirin 1 Tablet (of 81 mg) Tablet, enteric coated Oral daily Benazepril HCl 1 Tablet (of 10 mg) Oral daily Carvedilol 1 Tablet (of 6.25 mg) Oral b.i.d. Cholecalciferol 1 Tablet (of 100 mcg ) Oral daily Crestor 1 Tablet (of 10 mg) Oral daily hydroCHLOROthiazide 0.5 Tablet (of 25 mg) Oral daily Naproxen 1 Tablet (of 500 mg) Oral b.i.d. traMADol HCl 1 Tablet (of 50 mg) Oral four times a day Family History: Mr. Domínguez's mother at age 82: coronary artery disease, and hypertension. Mr. Domínguez's father at age 23: accident fall, and hypertension. Social History: Mr. Domínguez is . Mr. Domínguez has never smoked. pt states he chewed for 10 years. he chewed 2 cans a week. Review Of Symptoms: <See Above> Vital Signs: Performed on Jan 07, 2021 15:05 Height - 72.00 in Weight - 209.0 lbs BSA - 2.17 sq.m BMI - 28.35 Temperature - 97.0 F (LOW) Pulse - 83 /min Respiration - 18 /min BP - 119/76 mm(hg) O2 Sat - 96 % Pain - 0,1 - No physically strenuous activity, but ambulatory and able to carry out light or sedentary work (e.g. office work, light house work). (ECOG) Physical Examination: Constitutional Alert, oriented, no acute distress. Skin pink, warm and dry. Head Normocephalic; atraumatic. Eyes Conjunctivae and sclerae are clear and without icterus. Pupils are reactive and equal. Neck Supple without masses or thyromegaly. No jugular venous distension. Respiratory Lungs are clear to auscultation without rhonchi or wheezing. Cardiovascular Regular rate and rhythm of heart without murmurs,clicks, gallops or rubs. Chest Right chest wall venous access device placement site as healed well. It is unremarkable. Abdomen Non-tender, non-distended, no masses or ascites. Good bowel sounds noted in all quads. No guarding or rebound tenderness. No pulsatile masses. Back/Spine Non-tender to palpation. Extremities No visible deformities, no cyanosis, clubbing or edema. Musculoskeletal No tenderness or swelling, normal range of motion without obvious weakness. Integumentary No rashes or lesions. Neurologic No sensory or motor deficits, normal cerebellar function, normal gait. Psychiatric Alert and oriented times three. Coherent speech. Verbalizes understanding of our discussions today. Test performed on Jul 14, 2020 15:48 CEA 1.5 ng/mL Impression: moderately differentiated, invasive adenocarcinoma involving rectum per colonoscopy done on June 23, 2020 CT scan of chest abdomen pelvis done on June 23, 2020 showed no evidence of metastatic disease and rectal mucosal thickening consistent with rectal mass Clinically T2 versus T3, NX, MX Status post pacemaker History of rheumatic fever at age 8 with no long-term cardiac complication Started on combined chemoradiation with oral Xeloda 1800 mg p.o. twice daily 5 days a week on July 28, 2020, dose was reduced to 1500 mg p.o. twice daily 5 days a week on August 13, 2020 because of grade 1 hand-foot syndrome and diarrhea. Mr. Domínguez completed chemoradiation on September 01, 2020. And underwent robotic assisted LAR with loop ileostomy on October 27, 2020 and final pathology report showed moderately differentiated adenocarcinoma, carcinoma extends through muscularis propria and into pericolonic fat, treatment effect was present, no lymphovascular invasion seen, clear surgical margins, ypT3 and 1 out of 31 lymph node positive for metastatic disease, ypN1, Stage ypIII Plan/Problems Addressed at this Visit: 1. Moderately differentiated invasive adenocarcinoma of the rectum. He began chemoradiation with capecitabine 1800 mg twice daily on the days of radiation on July 28, 2020. His dose was reduced to 1500 mg twice daily on August 13, 2020 due to hand-foot syndrome and diarrhea. He completed chemoradiation on September 01, 2020. He underwent robotic assisted LAR with loop ileostomy on October 27, 2020. The final pathology report showed moderately differentiated adenocarcinoma, carcinoma extends through the muscularis propria into the pericolonic fat. There is no lymphovascular invasion seen. Clear surgical margins. 1 out of 31 lymph nodes positive for metastatic disease ypT3, ypN1, stage ypIII per Dr. Bundy's notes. Mr. Domínguez was offered adjuvant chemotherapy with either FOLFOX for 4 months or Cape ox for 3 cycles. Mr. Carrillo opted to pursue the FOLFOX. Mr. Domínguez had placement of a PowerPort in the right subclavian vein per Dr. Farris on December 10, 2020 at [facility]. He began his first cycle of FOLFOX on December 30, 2020. A. Proceed with cycle 1 FOLFOX. This is day 8. He is tolerating it well overall thus far. B. Continue current antiemetics as they are working well. C. Today's labs reviewed in detail and discussed with Mr. Domínguez and a copy was given to him. WBC 5.4, hemoglobin 13.1, platelets are 168,000, ANC is 3550. Potassium 3.9 random glucose 96 creatinine 0.8 and LFTs are normal. His weight is stable at 209. 2. Follow-up plan A. we will plan to see him back in 1 week with CBC CMP. B. He will be due for cycle 2 FOLFOX at that time. He has had slight cold-induced neuropathy but that has resolved at present. C. Mr. Domínguez was instructed to contact us in interim should questions or problems arise. Signed By: Navya Johnston-, [facility] Adelina Bundy MD <<Signature on File>>
--- NOTE | 2021-01-28 22:38 | ONC FU_ITS ---
Jennifer Abbott Patient Note Patient: Pramod Domínguez Unit #: [id number]: 1955 Dictated By: Navya JohnstonDate of Visit: Jan 14, 2021 Onc MED Follow-Up/Prog Note Chief Complaint: Rectal cancer History of Present Illness: Mr. Domínguez is a 64-year-old gentleman with 3 month history of change in bowel habits. He underwent a colonoscopy on June 23, 2020 which showed circumferential malignant appearing mass at 8 cm. The pathology report confirmed invasive adenocarcinoma, moderately differentiated. A CEA checked on June 23, 2020 was 2.0. Mr Domínguez underwent CT scan of chest abdomen pelvis on June 23, 2020 which showed rectal mucosal thickening consistent with rectal mass; no lymphadenopathy and no metastatic disease to liver. Mr Domínguez was referred to Dr. Grover in [facility]. Dr Grover's impression was tumors likely at least T3 and MRI scan of pelvis was suggested but not done because of patient has pacemaker. Preop chemoradiation was recommended to downstage the tumor. Patient has no family history of colon cancer Patient has history of rheumatic fever at age 8 but no long-term cardiac complication. Status post pacemaker for AV block. Patient denies smoking or alcohol use. Started on combined chemoradiation with oral Xeloda on on July 28, 2020. His Xeloda was placed on hold for diarrhea and hand foot syndrome on August 10, 2020 and then his dose was reduced to 1500 mg twice daily with radiation at his followup on 08/17/2020. He was able to complete chemoradiation with the Xeloda at 1500 mg twice daily. He completed radiation therapy September 01, 2020 Mr Domínguez underwent robotic assisted sigmoid colon and upper rectum, extended low anterior resection and loop ileostomy for rectal cancer on October 27, 2020 and final pathology report came back moderately differentiated adenocarcinoma, carcinoma extends through muscularis propria and into pericolonic fat, clear surgical margins, no tumor perforation, treatment effect present, residual cancer and evidence of tumor regression, partial response. No lymphovascular invasion seen, ypT3, 1 out of 31 lymph node is positive ypN1. Mr. España has been advised to pursue adjuvant FOLFOX. He began his 1st cycle on December 30, 2020. Mr. Holder is here today for follow-up 1 week post starting chemotherapy with FOLFOX on December 30, 2020. He states overall he is doing pretty good. He states that he had slight neuropathy in his hands when he tried to get ice cubes at the freezer but states otherwise he is doing well. He has had no problems with his ostomy. He states is working well. He denies any increased stool output or change in texture/consistency. He denies any nausea or vomiting. He has had no mouth sores, sore throat or difficulty swallowing. He denies any skin changes or rashes. Has had no skin peeling. He states his urination is normal for him. His appetite is good elevated things tend to taste little funny at times but states that is improving now. He states his energy is fair. He can do all his ADLs without assistance. His ECOG is 1. Past Medical History: Cardiomyopathy Hypertension Myocardial infarction Past Surgical History: Back surgery Bilateral carpal tunnel release Colonoscopy Neck surgery Right subclavian PowerPort placement???Dr. Farris???STEPHANIE in 2020 Pacemaker placement in 2013 Allergies: Erythromycin Base and Morphine Derivatives. Medications: Aspirin 1 Tablet (of 81 mg) Tablet, enteric coated Oral daily Benazepril HCl 1 Tablet (of 10 mg) Oral daily Carvedilol 1 Tablet (of 6.25 mg) Oral b.i.d. Cholecalciferol 1 Tablet (of 100 mcg ) Oral daily Crestor 1 Tablet (of 10 mg) Oral daily hydroCHLOROthiazide 0.5 Tablet (of 25 mg) Oral daily Naproxen 1 Tablet (of 500 mg) Oral b.i.d. traMADol HCl 1 Tablet (of 50 mg) Oral four times a day Family History: Mr. Domínguez's mother at age 82: coronary artery disease, and hypertension. Mr. Domínguez's father at age 23: accident fall, and hypertension. Social History: Mr. Domínguez is . Mr. Domínguez has never smoked. pt states he chewed for 10 years. he chewed 2 cans a week. Review Of Symptoms: <See Above> Vital Signs: Performed on Jan 14, 2021 10:12 Height - 72.00 in Weight - 214.2 lbs (HIGH) BSA - 2.19 sq.m BMI - 29.05 Temperature - 97.4 F (LOW) Pulse - 72 /min Respiration - 18 /min BP - 120/82 mm(hg) O2 Sat - 97 % Pain - 0 Fatigue - 0,1 - No physically strenuous activity, but ambulatory and able to carry out light or sedentary work (e.g. office work, light house work). (ECOG) Physical Examination: Constitutional Alert, oriented, no acute distress. Skin pink, warm and dry. Head Normocephalic; atraumatic. Eyes Conjunctivae and sclerae are clear and without icterus. Pupils are reactive and equal. Neck Supple without masses or thyromegaly. No jugular venous distension. Back/Spine Non-tender to palpation. Extremities No visible deformities, no cyanosis, clubbing or edema. Musculoskeletal No tenderness or swelling, normal range of motion without obvious weakness. Integumentary No rashes or lesions. Neurologic No sensory or motor deficits, normal cerebellar function, normal gait. Psychiatric Alert and oriented times three. Coherent speech. Verbalizes understanding of our discussions today. Impression: moderately differentiated, invasive adenocarcinoma involving rectum per colonoscopy done on June 23, 2020 CT scan of chest abdomen pelvis done on June 23, 2020 showed no evidence of metastatic disease and rectal mucosal thickening consistent with rectal mass Clinically T2 versus T3, NX, MX Status post pacemaker History of rheumatic fever at age 8 with no long-term cardiac complication Started on combined chemoradiation with oral Xeloda 1800 mg p.o. twice daily 5 days a week on July 28, 2020, dose was reduced to 1500 mg p.o. twice daily 5 days a week on August 13, 2020 because of grade 1 hand-foot syndrome and diarrhea. Mr. Domínguez completed chemoradiation on September 01, 2020. And underwent robotic assisted LAR with loop ileostomy on October 27, 2020 and final pathology report showed moderately differentiated adenocarcinoma, carcinoma extends through muscularis propria and into pericolonic fat, treatment effect was present, no lymphovascular invasion seen, clear surgical margins, ypT3 and 1 out of 31 lymph node positive for metastatic disease, ypN1, Stage ypIII Plan/Problems Addressed at this Visit: 1. Moderately differentiated invasive adenocarcinoma of the rectum. He began chemoradiation with capecitabine 1800 mg twice daily on the days of radiation on July 28, 2020. His dose was reduced to 1500 mg twice daily on August 13, 2020 due to hand-foot syndrome and diarrhea. He completed chemoradiation on September 01, 2020. He underwent robotic assisted LAR with loop ileostomy on October 27, 2020. The final pathology report showed moderately differentiated adenocarcinoma, carcinoma extends through the muscularis propria into the pericolonic fat. There is no lymphovascular invasion seen. Clear surgical margins. 1 out of 31 lymph nodes positive for metastatic disease ypT3, ypN1, stage ypIII per Dr. Bundy's notes. Mr. Domínguez was offered adjuvant chemotherapy with either FOLFOX for 4 months or Cape ox for 3 cycles. Mr. Carrillo opted to pursue the FOLFOX. Mr. Domínguez had placement of a PowerPort in the right subclavian vein per Dr. Farris on December 10, 2020 at [facility]. He began his first cycle of FOLFOX on December 30, 2020. A. Hold cycle 2 FOLFOX due to ANC of 1480. He did not have any growth factor support with cycle 1. B. Continue current antiemetics as they are working well. C. Today's labs reviewed in detail and discussed with Mr. Domínguez and a copy was given to him. WBC 2.8, hemoglobin 12.3, platelets 10 54,000, ANC is 1480. Potassium 4.0 random glucose 93 creatinine 0.8 and LFTs are normal. D. Neutropenic precautions were discussed-see handout below Neutropenic teaching: So you are Neutropenic? What Now? What is neutropenia? Neutropenia is when your white blood cells- specifically the neutrophils are low. Neutrophils are responsible for fighting off bacterial infections. When your neutrophil count is low, you are at higher risk to acquire and infection. What can I do to get more neutrophils? The bone marrow is pretty good about making more, so sometimes just giving the body time to make some more neutrophils is enough. With chemotherapy, the bone marrow gets a little lazier and sometimes you have to use a special shot called Neupogen or Neulasta to stimulate the bone marrow to make more neutrophils. What do I need to do when I am neutropenic?Mostly use common sense! If someone is actively ???sick???- coughing, running a fever, has shingles, or anything that makes them ???sick???, just try to stay away from them! But specifically DO NOT EAT OR DRINK AFTER THEM! ???The best thing you can do to protect yourself against infection, whether your white blood cell counts are low or not, is HANDWASHING. Wash your hands with soap and water for at least 20 seconds. You may use any kind of soap- regular or antibacterial. We do recommend using a pump soap instead of a bar of soap as the bar soap can hold bacteria in/ on it and that can be passed along to other people . You need to wash your hands every time you think about it, but especially after using the restroom or changing diapers, handling raw foods, petting animals, after blowing your nose (or wiping someone else???s nose), or coughing. ???Use the shopping cart wipes at the stores. Use hand welder gas after pumping gas or using your debit card and punching in your PIN. You may use hand welder gas while out and about, such as at sikh or school/ work activities. ???Avoid food buffets if possible??? if not, fill your plate then go wash your hands before you start eating. We recommend washing your hands after you use a menu at the restaurant also. While eating out, try to avoid undercooked food while you are neutropenic as you may get an infection from undercooked food. ???If your fresh fruit or vegetable has a ???skinned place??? or a pedro in the peeling, cut that spot out as there is concern that bacteria could grow under the damaged skin and just regular washing cannot get it out. ???Avoid handling and smelling fresh or dried jackson due to risk of Aspergillus infection. If you do have fresh jackson in a vase, have someone in the family change the water at least every 2 days. ???If you have pets, avoid contact with feces, saliva, urine and litter box material. Have a family member change litter boxes and rid waste. ???If you are using cleaning products to clean the sink and toilets, read the label on how to best achieve sanitization based on the product. Clean sinks, toilets, showers/ tubs, door handles and light switches. ???Use your own dinnerware and silverware. Do not share drinks or food with anyone else. 2. Follow-up plan A. we will plan to see him back in 1 week with CBC CMP. If his counts have recovered we will plan to proceed with cycle 2 with 10% dose reduction at that time. B. He will be due for cycle 2 FOLFOX at that time. He has had slight cold-induced neuropathy with cycle 1 but that resolved by day 8 of cycle 1. C. Mr. Domínguez was instructed to contact us in interim should questions or problems arise. Signed By: Navya Johnston-DIVYA, AOCNP Adelina Bundy MD <<Signature on File>>
--- NOTE | 2021-01-28 22:47 | ONC FU_ITS ---
Jenn[facility] Abbott Patient Note Patient: Pramod Domínguez Unit #: [id number]: [id number] Dictated By: Navya JohnstonDate of Visit: Jan 14, 2021 Onc MED Follow-Up/Prog Note Chief Complaint: Rectal cancer History of Present Illness: Mr. Domínguez is a 64-year-old gentleman with 3 month history of change in bowel habits. He underwent a colonoscopy on June 23, 2020 which showed circumferential malignant appearing mass at 8 cm. The pathology report confirmed invasive adenocarcinoma, moderately differentiated. A CEA checked on June 23, 2020 was 2.0. Mr Domínguez underwent CT scan of chest abdomen pelvis on June 23, 2020 which showed rectal mucosal thickening consistent with rectal mass; no lymphadenopathy and no metastatic disease to liver. Mr Domínguez was referred to Dr. Grover in [facility]. Dr Grover's impression was tumors likely at least T3 and MRI scan of pelvis was suggested but not done because of patient has pacemaker. Preop chemoradiation was recommended to downstage the tumor. Patient has no family history of colon cancer Patient has history of rheumatic fever at age 8 but no long-term cardiac complication. Status post pacemaker for AV block. Patient denies smoking or alcohol use. Started on combined chemoradiation with oral Xeloda on on July 28, 2020. His Xeloda was placed on hold for diarrhea and hand foot syndrome on August 10, 2020 and then his dose was reduced to 1500 mg twice daily with radiation at his followup on 08/17/2020. He was able to complete chemoradiation with the Xeloda at 1500 mg twice daily. He completed radiation therapy September 01, 2020 Mr Domínguez underwent robotic assisted sigmoid colon and upper rectum, extended low anterior resection and loop ileostomy for rectal cancer on October 27, 2020 and final pathology report came back moderately differentiated adenocarcinoma, carcinoma extends through muscularis propria and into pericolonic fat, clear surgical margins, no tumor perforation, treatment effect present, residual cancer and evidence of tumor regression, partial response. No lymphovascular invasion seen, ypT3, 1 out of 31 lymph node is positive ypN1. Mr. Murry was encouraged to pursue adjuvant chemotherapy. He was given a choice between 3 cycles of CAPOX or 6 months of FOLFOX. Mr. España has been elected to pursue adjuvant FOLFOX. He began his 1st cycle on December 30, 2020. Mr. Holder is here today for follow-up. He began chemotherapy with FOLFOX on December 30, 2020. He states overall he is still doing pretty good. He did have slight neuropathy in his hands when getting ice cubes or something cold out of the fridge rater with cycle 1. However that had resolved by day 8. He denies any fever or chills. He said no night sweats. He denies any appetite changes. He states things sometimes taste funny but overall it is good. He denies any decrease in appetite. His energy is good. He denies any new shortness of breath orthopnea. He has had no problems with his Port-A-Cath site that he is aware of. He denies any chest pain, palpitations or orthopnea. He denies any lower extremity edema. He denies any bowel or bladder changes. He states that his ostomy is working well. He has had no changes in stool consistency or frequency. He states he gets tired at times but overall his energy is fair. His ECOG is 1. Past Medical History: Cardiomyopathy Hypertension Myocardial infarction Past Surgical History: Back surgery Bilateral carpal tunnel release Colonoscopy Neck surgery Right subclavian PowerPort placement???Dr. Farris???STEPHANIE in 2020 Pacemaker placement in 2013 Allergies: Erythromycin Base and Morphine Derivatives. Medications: Aspirin 1 Tablet (of 81 mg) Tablet, enteric coated Oral daily Benazepril HCl 1 Tablet (of 10 mg) Oral daily Carvedilol 1 Tablet (of 6.25 mg) Oral b.i.d. Cholecalciferol 1 Tablet (of 100 mcg ) Oral daily Crestor 1 Tablet (of 10 mg) Oral daily hydroCHLOROthiazide 0.5 Tablet (of 25 mg) Oral daily Naproxen 1 Tablet (of 500 mg) Oral b.i.d. traMADol HCl 1 Tablet (of 50 mg) Oral four times a day Family History: Mr. Domínguez's mother at age 82: coronary artery disease, and hypertension. Mr. Domínguez's father at age 23: accident fall, and hypertension. Social History: Mr. Domínguez is . Mr. Domínguez has never smoked. pt states he chewed for 10 years. he chewed 2 cans a week. Review Of Symptoms: <See Above> Vital Signs: Performed on Jan 14, 2021 10:12 Height - 72.00 in Weight - 214.2 lbs (HIGH) BSA - 2.19 sq.m BMI - 29.05 Temperature - 97.4 F (LOW) Pulse - 72 /min Respiration - 18 /min BP - 120/82 mm(hg) O2 Sat - 97 % Pain - 0 Fatigue - 0,1 - No physically strenuous activity, but ambulatory and able to carry out light or sedentary work (e.g. office work, light house work). (ECOG) Physical Examination: Constitutional Alert, oriented, no acute distress. Skin pink, warm and dry. Head Normocephalic; atraumatic. Eyes Conjunctivae and sclerae are clear and without icterus. Pupils are reactive and equal. Neck Supple without masses or thyromegaly. No jugular venous distension. Back/Spine Non-tender to palpation. Extremities No visible deformities, no cyanosis, clubbing or edema. Musculoskeletal No tenderness or swelling, normal range of motion without obvious weakness. Integumentary No rashes or lesions. Neurologic No sensory or motor deficits, normal cerebellar function, normal gait. Psychiatric Alert and oriented times three. Coherent speech. Verbalizes understanding of our discussions today. Impression: moderately differentiated, invasive adenocarcinoma involving rectum per colonoscopy done on June 23, 2020 CT scan of chest abdomen pelvis done on June 23, 2020 showed no evidence of metastatic disease and rectal mucosal thickening consistent with rectal mass Clinically T2 versus T3, NX, MX Status post pacemaker History of rheumatic fever at age 8 with no long-term cardiac complication Started on combined chemoradiation with oral Xeloda 1800 mg p.o. twice daily 5 days a week on July 28, 2020, dose was reduced to 1500 mg p.o. twice daily 5 days a week on August 13, 2020 because of grade 1 hand-foot syndrome and diarrhea. Mr. Domínguez completed chemoradiation on September 01, 2020. And underwent robotic assisted LAR with loop ileostomy on October 27, 2020 and final pathology report showed moderately differentiated adenocarcinoma, carcinoma extends through muscularis propria and into pericolonic fat, treatment effect was present, no lymphovascular invasion seen, clear surgical margins, ypT3 and 1 out of 31 lymph node positive for metastatic disease, ypN1, Stage ypIII Plan/Problems Addressed at this Visit: 1. Moderately differentiated invasive adenocarcinoma of the rectum. He began chemoradiation with capecitabine 1800 mg twice daily on the days of radiation on July 28, 2020. His dose was reduced to 1500 mg twice daily on August 13, 2020 due to hand-foot syndrome and diarrhea. He completed chemoradiation on September 01, 2020. He underwent robotic assisted LAR with loop ileostomy on October 27, 2020. The final pathology report showed moderately differentiated adenocarcinoma, carcinoma extends through the muscularis propria into the pericolonic fat. There is no lymphovascular invasion seen. Clear surgical margins. 1 out of 31 lymph nodes positive for metastatic disease ypT3, ypN1, stage ypIII per Dr. Bundy's notes. Mr. Domínguez was offered adjuvant chemotherapy with either FOLFOX for 4 months or Cape ox for 3 cycles. Mr. Carrillo opted to pursue the FOLFOX. Mr. Domínguez had placement of a PowerPort in the right subclavian vein per Dr. Farris on December 10, 2020 at [facility] [place]. He began his first cycle of FOLFOX on December 30, 2020. A. Hold cycle 2 FOLFOX due to ANC of 1480. He did not have any growth factor support with cycle 1. B. Continue current antiemetics as they are working well. C. Today's labs reviewed in detail and discussed with Mr. Domínguez and a copy was given to him. WBC 2.8, hemoglobin 12.3, platelets 10 54,000, ANC is 1480. Potassium 4.0 random glucose 93 creatinine 0.8 and LFTs are normal. D. Neutropenic precautions were discussed-see handout below Neutropenic teaching: So you are Neutropenic? What Now? What is neutropenia? Neutropenia is when your white blood cells- specifically the neutrophils are low. Neutrophils are responsible for fighting off bacterial infections. When your neutrophil count is low, you are at higher risk to acquire and infection. What can I do to get more neutrophils? The bone marrow is pretty good about making more, so sometimes just giving the body time to make some more neutrophils is enough. With chemotherapy, the bone marrow gets a little lazier and sometimes you have to use a special shot called Neupogen or Neulasta to stimulate the bone marrow to make more neutrophils. What do I need to do when I am neutropenic?Mostly use common sense! If someone is actively ???sick???- coughing, running a fever, has shingles, or anything that makes them ???sick???, just try to stay away from them! But specifically DO NOT EAT OR DRINK AFTER THEM! ???The best thing you can do to protect yourself against infection, whether your white blood cell counts are low or not, is HANDWASHING. Wash your hands with soap and water for at least 20 seconds. You may use any kind of soap- regular or antibacterial. We do recommend using a pump soap instead of a bar of soap as the bar soap can hold bacteria in/ on it and that can be passed along to other people . You need to wash your hands every time you think about it, but especially after using the restroom or changing diapers, handling raw foods, petting animals, after blowing your nose (or wiping someone else???s nose), or coughing. ???Use the shopping cart wipes at the stores. Use hand instrument mechanic weapons system after pumping gas or using your debit card and punching in your PIN. You may use hand instrument mechanic weapons system while out and about, such as at buddhism or school/ work activities. ???Avoid food buffets if possible??? if not, fill your plate then go wash your hands before you start eating. We recommend washing your hands after you use a menu at the restaurant also. While eating out, try to avoid undercooked food while you are neutropenic as you may get an infection from undercooked food. ???If your fresh fruit or vegetable has a ???skinned place??? or a pedro in the peeling, cut that spot out as there is concern that bacteria could grow under the damaged skin and just regular washing cannot get it out. ???Avoid handling and smelling fresh or dried jackson due to risk of Aspergillus infection. If you do have fresh jackson in a vase, have someone in the family change the water at least every 2 days. ???If you have pets, avoid contact with feces, saliva, urine and litter box material. Have a family member change litter boxes and rid waste. ???If you are using cleaning products to clean the sink and toilets, read the label on how to best achieve sanitization based on the product. Clean sinks, toilets, showers/ tubs, door handles and light switches. ???Use your own dinnerware and silverware. Do not share drinks or food with anyone else. 2. Follow-up plan A. we will plan to see him back in 1 week with CBC CMP. If his counts have recovered we will plan to proceed with cycle 2 with 10% dose reduction at that time. B. He will be due for cycle 2 FOLFOX at that time. He has had slight cold-induced neuropathy with cycle 1 but that resolved by day 8 of cycle 1. C. Mr. Domínguez was instructed to contact us in interim should questions or problems arise. Signed By: Navya Johnston-, CNP Adelina Bundy MD <<Signature on File>>
--- NOTE | 2021-01-28 22:56 | ONC FU_ITS ---
Jennifer Abbott Patient Note Patient: Pramod Domínguez Unit #: [id number]: [id number] Dictated By: Navya JohnstonDate of Visit: Jan 21, 2021 Onc MED Follow-Up/Prog Note Chief Complaint: Rectal cancer History of Present Illness: Mr. Domínguez is a 64-year-old gentleman with 3 month history of change in bowel habits. He underwent a colonoscopy on June 23, 2020 which showed circumferential malignant appearing mass at 8 cm. The pathology report confirmed invasive adenocarcinoma, moderately differentiated. A CEA checked on June 23, 2020 was 2.0. Mr Domínguez underwent CT scan of chest abdomen pelvis on June 23, 2020 which showed rectal mucosal thickening consistent with rectal mass; no lymphadenopathy and no metastatic disease to liver. Mr Domínguez was referred to Dr. Grover in [facility]. Dr Grover's impression was tumors likely at least T3 and MRI scan of pelvis was suggested but not done because of patient has pacemaker. Preop chemoradiation was recommended to downstage the tumor. Patient has no family history of colon cancer Patient has history of rheumatic fever at age 8 but no long-term cardiac complication. Status post pacemaker for AV block. Patient denies smoking or alcohol use. Started on combined chemoradiation with oral Xeloda on on July 28, 2020. His Xeloda was placed on hold for diarrhea and hand foot syndrome on August 10, 2020 and then his dose was reduced to 1500 mg twice daily with radiation at his followup on 08/17/2020. He was able to complete chemoradiation with the Xeloda at 1500 mg twice daily. He completed radiation therapy September 01, 2020 Mr Domínguez underwent robotic assisted sigmoid colon and upper rectum, extended low anterior resection and loop ileostomy for rectal cancer on October 27, 2020 and final pathology report came back moderately differentiated adenocarcinoma, carcinoma extends through muscularis propria and into pericolonic fat, clear surgical margins, no tumor perforation, treatment effect present, residual cancer and evidence of tumor regression, partial response. No lymphovascular invasion seen, ypT3, 1 out of 31 lymph node is positive ypN1. Mr. Murry was encouraged to pursue adjuvant chemotherapy. He was given a choice between 3 cycles of CAPOX or 6 months of FOLFOX. Mr. España has been elected to pursue adjuvant FOLFOX. He began his 1st cycle on December 30, 2020. Mr. Holder is here today for follow-up. He began chemotherapy with FOLFOX on December 30, 2020. He was due for chemotherapy on January 14, 2021 however his cycle 2-day 1 ANC was 1480. He was advised to hold his chemotherapy and recheck his labs today. He states overall he is still doing pretty good. He denies any fever or chills. He said no night sweats. He denies any appetite changes. He denies any decrease in appetite. His energy is good. He denies any new shortness of breath orthopnea. He has had no problems with his Port-A-Cath site that he is aware of. He denies any chest pain, palpitations or orthopnea. He denies any lower extremity edema. He denies any bowel or bladder changes. He states that his ostomy is working well. He has had no changes in stool consistency or frequency. He states he gets tired at times but overall his energy is fair. His ECOG is 1. Past Medical History: Cardiomyopathy Hypertension Myocardial infarction Past Surgical History: Back surgery Bilateral carpal tunnel release Colonoscopy Neck surgery Right subclavian PowerPort placement???Dr. Farris???STEPHANIE in 2020 Pacemaker placement in 2013 Allergies: Erythromycin Base and Morphine Derivatives. Medications: Aspirin 1 Tablet (of 81 mg) Tablet, enteric coated Oral daily Benazepril HCl 1 Tablet (of 10 mg) Oral daily Carvedilol 1 Tablet (of 6.25 mg) Oral b.i.d. Cholecalciferol 1 Tablet (of 100 mcg ) Oral daily Crestor 1 Tablet (of 10 mg) Oral daily hydroCHLOROthiazide 0.5 Tablet (of 25 mg) Oral daily Naproxen 1 Tablet (of 500 mg) Oral b.i.d. traMADol HCl 1 Tablet (of 50 mg) Oral four times a day Family History: Mr. Domínguez's mother at age 82: coronary artery disease, and hypertension. Mr. Domínguez's father at age 23: accident fall, and hypertension. Social History: Mr. Domínguez is . Mr. Domínguez has never smoked. pt states he chewed for 10 years. he chewed 2 cans a week. Review Of Symptoms: <See Above> Vital Signs: Performed on Jan 21, 2021 09:52 Height - 72.00 in Weight - 214 lbs (LOW) BSA - 2.19 sq.m BMI - 29.02 Temperature - 96.5 F (LOW) Pulse - 91 /min Respiration - 18 /min BP - 122/70 mm(hg) O2 Sat - 97 % Pain - 0 Fatigue - 0,1 - No physically strenuous activity, but ambulatory and able to carry out light or sedentary work (e.g. office work, light house work). (ECOG) Physical Examination: Constitutional Alert, oriented, no acute distress. Skin pink, warm and dry. Head Normocephalic; atraumatic. Eyes Conjunctivae and sclerae are clear and without icterus. Pupils are reactive and equal. Neck Supple without masses or thyromegaly. No jugular venous distension. Respiratory Lungs are clear to auscultation without rhonchi or wheezing. Cardiovascular Regular rate and rhythm of heart without murmurs,clicks, gallops or rubs. Chest Right chest wall venous access device placement site as healed well. It is unremarkable. Abdomen Non-tender, non-distended, no masses or ascites. Good bowel sounds noted in all quads. No guarding or rebound tenderness. No pulsatile masses. Back/Spine Non-tender to palpation. Extremities No visible deformities, no cyanosis, clubbing or edema. Musculoskeletal No tenderness or swelling, normal range of motion without obvious weakness. Integumentary No rashes or lesions. Neurologic No sensory or motor deficits, normal cerebellar function, normal gait. Psychiatric Alert and oriented times three. Coherent speech. Verbalizes understanding of our discussions today. Test performed on Jan 21, 2021 08:30 Sodium 138 mmol/L Potassium 3.7 mmol/L Chloride 103 mmol/L CO2 26 mmol/L Anion Gap 12.7 BUN 17 mg/dL Creatinine 0.9 mg/dL Cr Clearance (Est) 106.8000 mL/min eGFR 84.2 mL/min Glucose 123 mg/dL Osmolality - Calculated 289 mOsm/kg Calcium 8.9 mg/dL Protein, Total 6.3 g/dL Albumin 4.1 g/dL Globulin 2.2 g/dL Bilirubin, Total 0.3 mg/dL ALT (SGPT) 17 U/L AST (SGOT) 17 U/L Alkaline Phosphatase 54 IU/L Impression: moderately differentiated, invasive adenocarcinoma involving rectum per colonoscopy done on June 23, 2020 CT scan of chest abdomen pelvis done on June 23, 2020 showed no evidence of metastatic disease and rectal mucosal thickening consistent with rectal mass Clinically T2 versus T3, NX, MX Status post pacemaker History of rheumatic fever at age 8 with no long-term cardiac complication Started on combined chemoradiation with oral Xeloda 1800 mg p.o. twice daily 5 days a week on July 28, 2020, dose was reduced to 1500 mg p.o. twice daily 5 days a week on August 13, 2020 because of grade 1 hand-foot syndrome and diarrhea. Mr. Domínguez completed chemoradiation on September 01, 2020. And underwent robotic assisted LAR with loop ileostomy on October 27, 2020 and final pathology report showed moderately differentiated adenocarcinoma, carcinoma extends through muscularis propria and into pericolonic fat, treatment effect was present, no lymphovascular invasion seen, clear surgical margins, ypT3 and 1 out of 31 lymph node positive for metastatic disease, ypN1, Stage ypIII Plan/Problems Addressed at this Visit: 1. Moderately differentiated invasive adenocarcinoma of the rectum. He began chemoradiation with capecitabine 1800 mg twice daily on the days of radiation on July 28, 2020. His dose was reduced to 1500 mg twice daily on August 13, 2020 due to hand-foot syndrome and diarrhea. He completed chemoradiation on September 01, 2020. He underwent robotic assisted LAR with loop ileostomy on October 27, 2020. The final pathology report showed moderately differentiated adenocarcinoma, carcinoma extends through the muscularis propria into the pericolonic fat. There is no lymphovascular invasion seen. Clear surgical margins. 1 out of 31 lymph nodes positive for metastatic disease ypT3, ypN1, stage ypIII per Dr. Bundy's notes. Mr. Domínguez was offered adjuvant chemotherapy with either FOLFOX for 4 months or Cape ox for 3 cycles. Mr. Carrillo opted to pursue the FOLFOX. Mr. Domínguez had placement of a PowerPort in the right subclavian vein per Dr. Farris on December 10, 2020 at [facility]. He began his first cycle of FOLFOX on December 30, 2020. A. Hold cycle 2 FOLFOX due to ANC of 1540 and Fluorouracil pump to be removed 44 to 48 hours after administration. This is which means he would have to have his pump removed on Monday and transportation is an issue for that. He did not have any growth factor support with cycle 1. B. Continue current antiemetics as they are working well. C. Today's labs reviewed in detail and discussed with Mr. Domínguez and a copy was given to him. WBC 3.0, hemoglobin 12.9, platelets 217,000, ANC is 1540. Potassium 3.7 random glucose 123 creatinine 0.9 LFTs are normal albumin is 4.1. D. I have requested a PA for Neulasta for cycle 2 given his chemotherapy induced neutropenia on day 8 of 1480. His ANC on day 0 was 2980. 2. Follow-up plan A. we will plan to see him back in 1 week with CBC CMP-Wednesday February 24, 2021. If his counts have recovered we will plan to proceed with cycle 2 with 10% dose reduction at that time. B. He will be due for cycle 2 FOLFOX at that time. He has had slight cold-induced neuropathy with cycle 1 but that resolved by day 8 of cycle 1. C. Mr. Domínguez was instructed to contact us in interim should questions or problems arise. Signed By: Navya Johnston-, [facility] Adelina Bundy MD <<Signature on File>>
== END 2021-01-27 23:59 | disposition home or self-care (01) ==
LOC: ONCMED 05:54
PROVIDERS: Nurse Practitioner; PCP Family Medicine; Visit Provider Internal Medicine Hematology & Oncology
DX: Z51.11 Encounter for antineoplastic chemotherapy (principal); C20 Malignant neoplasm of rectum; I42.9 Cardiomyopathy, unspecified; I10 Essential (primary) hypertension; I25.2 Old myocardial infarction; Z79.899 Other long term (current) drug therapy; Z86.19 Personal history of other infectious and parasitic diseases; Z92.21 Personal history of antineoplastic chemotherapy; Z92.3 Personal history of irradiation; Z95.0 Presence of cardiac pacemaker
CPT/HCPCS: 36591; 80053; 85025; 96367; 96368; 96372; 96375; 96413; 96415; 96416; 96523; 99214; J0640; J1100; J2469; J2505; J3490; J9190; J9263

== ENCOUNTER 2021-02-24 05:46 | Outpatient (RCR) | payer MEDICARE, SELFPAY ==
[2021-02-08 08:36] LABS: Basophils # 0.1 10^3/uL (0.0-0.1); Basophils % 0.6 %; Eosinophils # 0.2 10^3/uL (0.0-0.8); Eosinophils % 2.5 %; Hemoglobin 13.5 g/dL (11.7-16.6); Lymphocytes # 0.8 10^3/uL (0.8-4.8); Lymphocytes % 8.2 %; Mean Corpuscular HGB Conc 32.1 g/dL (30.0-36.0); Mean Corpuscular Hemoglobin 28.3 pg (28.0-34.0); Mean Corpuscular Volume 88.1 fL (80-94); Mean Platelet Volume 9.6 fL (7.4-10.4); Monocytes # 0.5 10^3/uL (0.2-0.9); Monocytes % 5.3 %; Neutrophils # 7.63 10^3/uL (1.8-7.7); Neutrophils % 82.5 %; Nucleated Red Blood Cells % 0 %; Platelet Count 106 10^3/cmm (130-400); Red Blood Count 4.77 10^6/uL (4.1-5.3); Red Cell Distribution Width 13.4 % (12.1-15.1); White Blood Count 9.3 10^3/uL (4.0-10.0)
[2021-02-08 09:02] LABS: Alanine Aminotransferase 19 U/L (0-41); Alkaline Phosphatase 107 IU/L (40-130); Anion Gap 15.1 (5-19); Aspartate Amino Transferase 21 U/L (0-40); Blood Urea Nitrogen 17 mg/dL (8-23); Calcium 8.9 mg/dL (8.5-10.5); Carbon Dioxide 27 mmol/L (22-29); Chloride 107 mmol/L (98-107); Globulin 2.5 g/dL (1.3-4.6); Glomerular Filtration Rate 74.5 mL/min (90-130); Glucose 93 mg/dL (65-115); Osmolality Calculated 301 mOsm/kg (285-295); Potassium 4.1 mmol/L (3.5-5.1); Sodium 145 mmol/L (136-145); Total Bilirubin 0.5 mg/dL (0.15-1.2); Total Protein 6.5 g/dL (6.6-8.7)
[2021-02-08 09:08] LABS: Carcinoembryonic Antigen 0.8 ng/mL (0.0-4.7)
[2021-02-08] MEDS: palonosetron 0.25 mg/5 mL SDV IV (10:00)
[2021-02-08] MEDS: dextrose 5% 250 ML 75 ML IV (10:00)
[2021-02-08] MEDS: famotidine 20 mg/2 mL INJ IVP (10:01)
[2021-02-15 09:18] LABS: Basophils # 0.1 10^3/uL (0.0-0.1); Basophils % 0.5 %; Eosinophils # 0.3 10^3/uL (0.0-0.8); Eosinophils % 3.4 %; Hematocrit 41.1 % (42.0-52.0); Hemoglobin 13.2 g/dL (11.7-16.6); Lymphocytes # 0.8 10^3/uL (0.8-4.8); Lymphocytes % 8.2 %; Mean Corpuscular HGB Conc 32.1 g/dL (30.0-36.0); Mean Corpuscular Hemoglobin 28.6 pg (28.0-34.0); Mean Corpuscular Volume 89.2 fL (80-94); Mean Platelet Volume 10.1 fL (7.4-10.4); Monocytes # 0.8 10^3/uL (0.2-0.9); Neutrophils # 7.51 10^3/uL (1.8-7.7); Neutrophils % 79.5 %; Nucleated Red Blood Cells % 0 %; Platelet Count 147 10^3/cmm (130-400); Red Blood Count 4.61 10^6/uL (4.1-5.3); Red Cell Distribution Width 13.4 % (12.1-15.1); White Blood Count 9.5 10^3/uL (4.0-10.0)
[2021-02-15 10:23] LABS: Slide Review Slide Review Perform
[2021-02-22 08:43] LABS: Basophils # 0.1 10^3/uL (0.0-0.1); Basophils % 0.8 %; Eosinophils # 0.2 10^3/uL (0.0-0.8); Eosinophils % 2.7 %; Hematocrit 42.1 % (42.0-52.0); Hemoglobin 13.4 g/dL (11.7-16.6); Lymphocytes # 0.8 10^3/uL (0.8-4.8); Lymphocytes % 9.3 %; Mean Corpuscular HGB Conc 31.8 g/dL (30.0-36.0); Mean Corpuscular Hemoglobin 28.5 pg (28.0-34.0); Mean Corpuscular Volume 89.4 fL (80-94); Mean Platelet Volume 9.9 fL (7.4-10.4); Monocytes # 0.8 10^3/uL (0.2-0.9); Monocytes % 8.9 %; Neutrophils # 6.41 10^3/uL (1.8-7.7); Nucleated Red Blood Cells % 0 %; Platelet Count 149 10^3/cmm (130-400); Red Blood Count 4.71 10^6/uL (4.1-5.3); Red Cell Distribution Width 14.5 % (12.1-15.1); White Blood Count 8.4 10^3/uL (4.0-10.0)
[2021-02-22 09:14] LABS: Alanine Aminotransferase 27 U/L (0-41); Albumin Level 3.9 g/dL (3.5-5.2); Alkaline Phosphatase 118 IU/L (40-130); Aspartate Amino Transferase 24 U/L (0-40); Blood Urea Nitrogen 14 mg/dL (8-23); Calcium 8.9 mg/dL (8.5-10.5); Carbon Dioxide 26 mmol/L (22-29); Chloride 106 mmol/L (98-107); Globulin 2.3 g/dL (1.3-4.6); Glomerular Filtration Rate 84.2 mL/min (90-130); Glucose 97 mg/dL (65-115); Osmolality Calculated 294 mOsm/kg (285-295); Sodium 142 mmol/L (136-145); Total Bilirubin 0.3 mg/dL (0.15-1.2); Total Protein 6.2 g/dL (6.6-8.7)
[2021-02-22] MEDS: dextrose 5% 250 ML 75 ML IV (10:14)
[2021-02-22] MEDS: famotidine 20 mg/2 mL INJ IVP (10:15)
[2021-02-22] MEDS: palonosetron 0.25 mg/5 mL SDV IVP (10:17)
--- NOTE | 2021-02-22 15:29 | ONC FU_ITS ---
Dr. Bundy follow up note Patient: Pramod Domínguez Unit #: [id number]: 1955 Dicatated By: Adelina Bundy M.D.Date of Visit:Feb 22, 2021 Onc Med Follow-up/Prog Note History of Present Illness: Mr. Domínguez is a 64-year-old gentleman with 3 month history of change in bowel habits. He underwent a colonoscopy on June 23, 2020 which showed circumferential malignant appearing mass at 8 cm. The pathology report confirmed invasive adenocarcinoma, moderately differentiated. A CEA checked on June 23, 2020 was 2.0. Mr Domínguez underwent CT scan of chest abdomen pelvis on June 23, 2020 which showed rectal mucosal thickening consistent with rectal mass; no lymphadenopathy and no metastatic disease to liver. Mr Domínguez was referred to Dr. Grover in [facility]. Dr Grover's impression was tumors likely at least T3 and MRI scan of pelvis was suggested but not done because of patient has pacemaker. Preop chemoradiation was recommended to downstage the tumor. Patient has no family history of colon cancer Patient has history of rheumatic fever at age 8 but no long-term cardiac complication. Status post pacemaker for AV block. Patient denies smoking or alcohol use. Started on combined chemoradiation with oral Xeloda on on July 28, 2020. His Xeloda was placed on hold for diarrhea and hand foot syndrome on August 10, 2020 and then his dose was reduced to 1500 mg twice daily with radiation at his followup on 08/17/2020. He was able to complete chemoradiation with the Xeloda at 1500 mg twice daily. He completed radiation therapy September 01, 2020 Mr Domínguez underwent robotic assisted sigmoid colon and upper rectum, extended low anterior resection and loop ileostomy for rectal cancer on October 27, 2020 and final pathology report came back moderately differentiated adenocarcinoma, carcinoma extends through muscularis propria and into pericolonic fat, clear surgical margins, no tumor perforation, treatment effect present, residual cancer and evidence of tumor regression, partial response. No lymphovascular invasion seen, ypT3, 1 out of 31 lymph node is positive ypN1. Mr. Murry was encouraged to pursue adjuvant chemotherapy. He was given a choice between 3 cycles of CAPOX or 6 months of FOLFOX. Mr. España has been elected to pursue adjuvant FOLFOX X6-8 cycles. He began his 1st cycle on December 30, 2020. Came for follow-up, denies any specific complaint except mild fingertip discomfort with cold but surprisingly no issues with ice cream, no mouth sores, no jaundice, no abdominal pain, no diarrhea or constipation. Tolerating FOLFOX well otherwise Medications: Aspirin 1 Tablet (of 81 mg) Tablet, enteric coated Oral daily, Benazepril HCl 1 Tablet (of 10 mg) Oral daily, Carvedilol 1 Tablet (of 6.25 mg) Oral b.i.d., Cholecalciferol 1 Tablet (of 100 mcg ) Oral daily, Crestor 1 Tablet (of 10 mg) Oral daily, hydroCHLOROthiazide 0.5 Tablet (of 25 mg) Oral daily, Naproxen 1 Tablet (of 500 mg) Oral b.i.d., traMADol HCl 1 Tablet (of 50 mg) Oral four times a day Allergies: Erythromycin Base and Morphine Derivatives. Review of Systems: Review of Systems is not available for this patient. Vital Signs: Performed on Feb 22, 2021 14:44 Height - 72.00 in Temperature - 96.0 F (LOW) Pulse - 70 /min Respiration - 18 /min BP - 112/65 mm(hg) O2 Sat - 96 % Performed on Feb 22, 2021 09:30 Height - 72.00 in Weight - 211.8 lbs (LOW) BSA - 2.18 sq.m BMI - 28.73 Temperature - 97.2 F (LOW) Pulse - 80 /min Respiration - 17 /min BP - 122/74 mm(hg) O2 Sat - 97 % Pain - 0 Performance Status: 0 - Fully active, able to carry on all predisease activities without restrictions. (ECOG) Physical Examination: ENMT - No mouth sores no jaundice, Respiratory - Lungs are clear to auscultation, Cardiovascular - Regular rate and rhythm of heart , Abdomen - Soft, bowel sounds present, Extremities - No visible edema. Lab/Imaging: Test performed on Jan 25, 2021 08:10 WBC 4.4 10 3/uL RBC 4.81 10 6/uL HGB 13.8 g/dL HCT 42.3 % MCV 87.9 fL MCH 28.7 pg MCHC 32.6 g/dL RDW 12.9 % Platelet Count 191 10 3/cmm MPV 9.5 fL Neutrophils 2.95 10 3/uL Lymphocytes 0.7 10 3/uL Monocytes 0.4 10 3/uL Eosinophils 0.3 10 3/uL Basophils 0.1 10 3/uL Neutrophil % 66.4 % Lymphocyte % 14.9 % Monocyte % 9.9 % Eosinophil % 7.2 % Basophils % 1.1 % NRBC % 0 % Test performed on Jan 21, 2021 08:30 Sodium 138 mmol/L Potassium 3.7 mmol/L Chloride 103 mmol/L CO2 26 mmol/L Anion Gap 12.7 BUN 17 mg/dL Creatinine 0.9 mg/dL Cr Clearance (Est) 106.8000 mL/min eGFR 84.2 mL/min Glucose 123 mg/dL Osmolality - Calculated 289 mOsm/kg Calcium 8.9 mg/dL Protein, Total 6.3 g/dL Albumin 4.1 g/dL Globulin 2.2 g/dL Bilirubin, Total 0.3 mg/dL ALT (SGPT) 17 U/L AST (SGOT) 17 U/L Alkaline Phosphatase 54 IU/L Impression: moderately differentiated, invasive adenocarcinoma involving rectum per colonoscopy done on June 23, 2020 CT scan of chest abdomen pelvis done on June 23, 2020 showed no evidence of metastatic disease and rectal mucosal thickening consistent with rectal mass Clinically T2 versus T3, NX, MX Status post pacemaker History of rheumatic fever at age 8 with no long-term cardiac complication Started on combined chemoradiation with oral Xeloda 1800 mg p.o. twice daily 5 days a week on July 28, 2020, dose was reduced to 1500 mg p.o. twice daily 5 days a week on August 13, 2020 because of grade 1 hand-foot syndrome and diarrhea. Mr. Domínguez completed chemoradiation on September 01, 2020. And underwent robotic assisted LAR with loop ileostomy on October 27, 2020 and final pathology report showed moderately differentiated adenocarcinoma, carcinoma extends through muscularis propria and into pericolonic fat, treatment effect was present, no lymphovascular invasion seen, clear surgical margins, ypT3 and 1 out of 31 lymph node positive for metastatic disease, ypN1, Stage ypIII Plan: Discussed with patient regarding his labs white blood count 8.4 hemoglobin 13.4 hematocrit 42.1 platelets 149,000 CMP within normal limits Clinically, patient doing well with no new signs symptoms: Tolerating adjuvant therapy with FOLFOX well, will proceed with cycle number 4 with FOLFOX, today and he will return to clinic in 2 weeks with CBC CMP if reasonable, cycle #5. Signed By: Adelina Bundy M.D. <<Signature on File>>
== END 2021-02-27 23:59 | disposition home or self-care (01) ==
LOC: ONCMED 05:46
PROVIDERS: PCP Family Medicine; Visit Provider Internal Medicine Hematology & Oncology
DX: Z51.11 Encounter for antineoplastic chemotherapy (principal); C20 Malignant neoplasm of rectum; Z95.0 Presence of cardiac pacemaker; Z86.19 Personal history of other infectious and parasitic diseases; Z79.899 Other long term (current) drug therapy; Z92.21 Personal history of antineoplastic chemotherapy; Z92.3 Personal history of irradiation
CPT/HCPCS: 36415; 36591; 80053; 82378; 85025; 96367; 96368; 96372; 96375; 96413; 96415; 96416; 96523; 99215; J0640; J1100; J2469; J2505; J3490; J9190; J9263

== ENCOUNTER 2021-03-24 05:44 | Outpatient (RCR) | payer MEDICARE, SELFPAY ==
[2021-03-08 08:49] LABS: Basophils # 0.1 10^3/uL (0.0-0.1); Basophils % 0.9 %; Eosinophils # 0.2 10^3/uL (0.0-0.8); Eosinophils % 2.7 %; Hematocrit 41.2 % (42.0-52.0); Lymphocytes # 0.8 10^3/uL (0.8-4.8); Mean Corpuscular HGB Conc 31.6 g/dL (30.0-36.0); Mean Corpuscular Hemoglobin 28.3 pg (28.0-34.0); Mean Corpuscular Volume 89.8 fL (80-94); Mean Platelet Volume 9.7 fL (7.4-10.4); Monocytes # 0.7 10^3/uL (0.2-0.9); Monocytes % 8.8 %; Neutrophils % 77.1 %; Nucleated Red Blood Cells % 0 %; Platelet Count 165 10^3/cmm (130-400); Red Blood Count 4.59 10^6/uL (4.1-5.3); Red Cell Distribution Width 14.7 % (12.1-15.1); White Blood Count 7.9 10^3/uL (4.0-10.0)
[2021-03-08 09:11] LABS: Alanine Aminotransferase 17 U/L (0-41); Albumin Level 4.1 g/dL (3.5-5.2); Alkaline Phosphatase 135 IU/L (40-130); Anion Gap 14.5 (5-19); Aspartate Amino Transferase 19 U/L (0-40); Blood Urea Nitrogen 13 mg/dL (8-23); Calcium 8.7 mg/dL (8.5-10.5); Carbon Dioxide 26 mmol/L (22-29); Chloride 105 mmol/L (98-107); Globulin 2.3 g/dL (1.3-4.6); Glomerular Filtration Rate 84.2 mL/min (90-130); Glucose 110 mg/dL (65-115); Osmolality Calculated 295 mOsm/kg (285-295); Potassium 3.5 mmol/L (3.5-5.1); Sodium 142 mmol/L (136-145); Total Bilirubin 0.4 mg/dL (0.15-1.2); Total Protein 6.4 g/dL (6.6-8.7)
[2021-03-08] MEDS: dextrose 5% 250 ML 75 ML IV (10:15)
[2021-03-08] MEDS: famotidine 20 mg/2 mL INJ IVP (10:16)
[2021-03-08] MEDS: palonosetron 0.25 mg/5 mL SDV IVP (10:18)
--- NOTE | 2021-03-08 16:14 | ONC FU_ITS ---
Dr. Bundy follow up note Patient: Pramod Domínguez Unit #: [id number]: 1955 Dicatated By: Adelina Bundy M.D.Date of Visit:Mar 08, 2021 Onc Med Follow-up/Prog Note History of Present Illness: Mr. Domínguez is a 64-year-old gentleman with 3 month history of change in bowel habits. He underwent a colonoscopy on June 23, 2020 which showed circumferential malignant appearing mass at 8 cm. The pathology report confirmed invasive adenocarcinoma, moderately differentiated. A CEA checked on June 23, 2020 was 2.0. Mr Domínguez underwent CT scan of chest abdomen pelvis on June 23, 2020 which showed rectal mucosal thickening consistent with rectal mass; no lymphadenopathy and no metastatic disease to liver. Mr Domínguez was referred to Dr. Grover in [facility]. Dr Grover's impression was tumors likely at least T3 and MRI scan of pelvis was suggested but not done because of patient has pacemaker. Preop chemoradiation was recommended to downstage the tumor. Patient has no family history of colon cancer Patient has history of rheumatic fever at age 8 but no long-term cardiac complication. Status post pacemaker for AV block. Patient denies smoking or alcohol use. Started on combined chemoradiation with oral Xeloda on on July 28, 2020. His Xeloda was placed on hold for diarrhea and hand foot syndrome on August 10, 2020 and then his dose was reduced to 1500 mg twice daily with radiation at his followup on 08/17/2020. He was able to complete chemoradiation with the Xeloda at 1500 mg twice daily. He completed radiation therapy September 01, 2020 Mr Domínguez underwent robotic assisted sigmoid colon and upper rectum, extended low anterior resection and loop ileostomy for rectal cancer on October 27, 2020 and final pathology report came back moderately differentiated adenocarcinoma, carcinoma extends through muscularis propria and into pericolonic fat, clear surgical margins, no tumor perforation, treatment effect present, residual cancer and evidence of tumor regression, partial response. No lymphovascular invasion seen, ypT3, 1 out of 31 lymph node is positive ypN1. Mr. Murry was encouraged to pursue adjuvant chemotherapy. He was given a choice between 3 cycles of CAPOX or 6 months of FOLFOX. Mr. España has been elected to pursue adjuvant FOLFOX X6-8 cycles. He began his 1st cycle on December 30, 2020. Came for follow-up, denies any specific complaints, no fever chills, no nausea or vomiting, no diarrhea or constipation, no mouth sores, no jaundice, no peripheral numbness, no rash, tolerating adjuvant chemotherapy with FOLFOX well Medications: Aspirin 1 Tablet (of 81 mg) Tablet, enteric coated Oral daily, Benazepril HCl 1 Tablet (of 10 mg) Oral daily, Carvedilol 1 Tablet (of 6.25 mg) Oral b.i.d., Cholecalciferol 1 Tablet (of 100 mcg ) Oral daily, Crestor 1 Tablet (of 10 mg) Oral daily, hydroCHLOROthiazide 0.5 Tablet (of 25 mg) Oral daily, Naproxen 1 Tablet (of 500 mg) Oral b.i.d., traMADol HCl 1 Tablet (of 50 mg) Oral four times a day Allergies: Erythromycin Base and Morphine Derivatives. Review of Systems: Review of Systems is not available for this patient. Vital Signs: Performed on Mar 08, 2021 15:44 Height - 72.00 in Weight - 209.6 lbs (LOW) BSA - 2.17 sq.m BMI - 28.43 Temperature - 97.4 F (LOW) Pulse - 77 /min Respiration - 18 /min BP - 117/67 mm(hg) O2 Sat - 97 % Pain - 0 Fatigue - 0 Performed on Mar 08, 2021 14:25 Height - 72.00 in Temperature - 96.0 F (LOW) Pulse - 69 /min Respiration - 18 /min BP - 120/72 mm(hg) O2 Sat - 95 % (LOW) Performance Status: 0 - Fully active, able to carry on all predisease activities without restrictions. (ECOG) Physical Examination: ENMT - No mouth sores, no thrush, no jaundice, Respiratory - Lungs are clear to auscultation, Cardiovascular - Regular rate and rhythm of heart, Abdomen - Soft, bowel sounds present, Extremities - No visible edema. Lab/Imaging: Test performed on Jan 25, 2021 08:10 WBC 4.4 10 3/uL RBC 4.81 10 6/uL HGB 13.8 g/dL HCT 42.3 % MCV 87.9 fL MCH 28.7 pg MCHC 32.6 g/dL RDW 12.9 % Platelet Count 191 10 3/cmm MPV 9.5 fL Neutrophils 2.95 10 3/uL Lymphocytes 0.7 10 3/uL Monocytes 0.4 10 3/uL Eosinophils 0.3 10 3/uL Basophils 0.1 10 3/uL Neutrophil % 66.4 % Lymphocyte % 14.9 % Monocyte % 9.9 % Eosinophil % 7.2 % Basophils % 1.1 % NRBC % 0 % Test performed on Jan 21, 2021 08:30 Sodium 138 mmol/L Potassium 3.7 mmol/L Chloride 103 mmol/L CO2 26 mmol/L Anion Gap 12.7 BUN 17 mg/dL Creatinine 0.9 mg/dL Cr Clearance (Est) 106.8000 mL/min eGFR 84.2 mL/min Glucose 123 mg/dL Osmolality - Calculated 289 mOsm/kg Calcium 8.9 mg/dL Protein, Total 6.3 g/dL Albumin 4.1 g/dL Globulin 2.2 g/dL Bilirubin, Total 0.3 mg/dL ALT (SGPT) 17 U/L AST (SGOT) 17 U/L Alkaline Phosphatase 54 IU/L Impression: moderately differentiated, invasive adenocarcinoma involving rectum per colonoscopy done on June 23, 2020 CT scan of chest abdomen pelvis done on June 23, 2020 showed no evidence of metastatic disease and rectal mucosal thickening consistent with rectal mass Clinically T2 versus T3, NX, MX Status post pacemaker History of rheumatic fever at age 8 with no long-term cardiac complication Started on combined chemoradiation with oral Xeloda 1800 mg p.o. twice daily 5 days a week on July 28, 2020, dose was reduced to 1500 mg p.o. twice daily 5 days a week on August 13, 2020 because of grade 1 hand-foot syndrome and diarrhea. Mr. Domínguez completed chemoradiation on September 01, 2020. And underwent robotic assisted LAR with loop ileostomy on October 27, 2020 and final pathology report showed moderately differentiated adenocarcinoma, carcinoma extends through muscularis propria and into pericolonic fat, treatment effect was present, no lymphovascular invasion seen, clear surgical margins, ypT3 and 1 out of 31 lymph node positive for metastatic disease, ypN1, Stage ypIII Plan: Discussed with patient regarding his labs white blood count 7.9 hemoglobin 13 hematocrit 41.2 platelets 165,000 CMP within normal limits except alk phos 135 Clinically, patient doing well with no new signs symptom, tolerating adjuvant therapy with FOLFOX well, will proceed with next cycle #5 today and then he will return to clinic in 2 weeks with CBC CMP if reasonable, next cycle, patient was recommended 6-8 cycle of FOLFOX as adjuvant therapy as long as tolerated with patient and his is considering stopping treatment after 6 cycles. Signed By: Adelina Bundy M.D. <<Signature on File>>
[2021-03-19 10:49] LABS: Basophils % 0.6 %; Eosinophils # 0.2 10^3/uL (0.0-0.8); Eosinophils % 2.7 %; Hematocrit 38.3 % (42.0-52.0); Hemoglobin 12.3 g/dL (11.7-16.6); Lymphocytes # 0.6 10^3/uL (0.8-4.8); Lymphocytes % 9.1 %; Mean Corpuscular HGB Conc 32.1 g/dL (30.0-36.0); Mean Corpuscular Hemoglobin 28.9 pg (28.0-34.0); Mean Corpuscular Volume 89.9 fl (80-94); Mean Platelet Volume 9.8 fL (7.4-10.4); Monocytes # 0.5 10^3/uL (0.2-0.9); Neutrophils # 5.22 10^3/uL (1.8-7.7); Nucleated Red Blood Cells % 0 %; Platelet Count 154 10^3/cmm (130-400); Red Blood Count 4.26 10^6/uL (4.1-5.3); Red Cell Distribution Width 15.3 % (12.1-15.1); White Blood Count 6.6 10^3/uL (4.0-10.0)
[2021-03-19 11:15] LABS: Alanine Aminotransferase 26 U/L (0-41); Albumin Level 3.7 g/dL (3.5-5.2); Alkaline Phosphatase 153 IU/L (40-130); Anion Gap 13.6 (5-19); Aspartate Amino Transferase 25 U/L (0-40); Blood Urea Nitrogen 14 mg/dL (8-23); Calcium 8.7 mg/dL (8.5-10.5); Carbon Dioxide 25 mmol/L (22-29); Chloride 107 mmol/L (98-107); Globulin 2.6 g/dL (1.3-4.6); Glomerular Filtration Rate 112.5 mL/min (90-130); Glucose 88 mg/dL (65-115); Osmolality Calculated 294 mOsm/kg (285-295); Potassium 3.6 mmol/L (3.5-5.1); Sodium 142 mmol/L (136-145); Total Bilirubin 0.3 mg/dL (0.15-1.2); Total Protein 6.3 g/dL (6.6-8.7)
[2021-03-22] MEDS: dextrose 5% 250 ML 75 ML IV (10:16)
[2021-03-22] MEDS: famotidine 20 mg/2 mL INJ IVP (10:16)
[2021-03-22] MEDS: palonosetron 0.25 mg/5 mL SDV IVP (10:18)
--- NOTE | 2021-03-22 17:18 | ONC FU_ITS ---
Dr. Bundy follow up note Patient: Pramod Domínguez Unit #: [id number]: 1955 Dicatated By: Adelina Bundy M.D.Date of Visit:Mar 22, 2021 Onc Med Follow-up/Prog Note History of Present Illness: Mr. Domínguez is a 65-year-old gentleman with 3 month history of change in bowel habits. He underwent a colonoscopy on June 23, 2020 which showed circumferential malignant appearing mass at 8 cm. The pathology report confirmed invasive adenocarcinoma, moderately differentiated. A CEA checked on June 23, 2020 was 2.0. Mr Domínguez underwent CT scan of chest abdomen pelvis on June 23, 2020 which showed rectal mucosal thickening consistent with rectal mass; no lymphadenopathy and no metastatic disease to liver. Mr Domínguez was referred to Dr. Grover in [facility]. Dr Grover's impression was tumors likely at least T3 and MRI scan of pelvis was suggested but not done because of patient has pacemaker. Preop chemoradiation was recommended to downstage the tumor. Patient has no family history of colon cancer Patient has history of rheumatic fever at age 8 but no long-term cardiac complication. Status post pacemaker for AV block. Patient denies smoking or alcohol use. Started on combined chemoradiation with oral Xeloda on on July 28, 2020. His Xeloda was placed on hold for diarrhea and hand foot syndrome on August 10, 2020 and then his dose was reduced to 1500 mg twice daily with radiation at his followup on 08/17/2020. He was able to complete chemoradiation with the Xeloda at 1500 mg twice daily. He completed radiation therapy September 01, 2020 Mr Domínguez underwent robotic assisted sigmoid colon and upper rectum, extended low anterior resection and loop ileostomy for rectal cancer on October 27, 2020 and final pathology report came back moderately differentiated adenocarcinoma, carcinoma extends through muscularis propria and into pericolonic fat, clear surgical margins, no tumor perforation, treatment effect present, residual cancer and evidence of tumor regression, partial response. No lymphovascular invasion seen, ypT3, 1 out of 31 lymph node is positive ypN1. Mr. Murry was encouraged to pursue adjuvant chemotherapy. He was given a choice between 3 cycles of CAPOX or 6 months of FOLFOX. Mr. España has been elected to pursue adjuvant FOLFOX X6-8 cycles. He began his 1st cycle on December 30, 2020. Came for follow-up, denies any specific complaints, no fever chills, no nausea or vomiting, no diarrhea or constipation, no mouth sores, no significant peripheral numbness except intolerance to cold especially on the day and day after chemotherapy with FOLFOX. Medications: Aspirin 1 Tablet (of 81 mg) Tablet, enteric coated Oral daily, B Complex 1 Tablet Oral daily, Benazepril HCl 1 Tablet (of 10 mg) Oral daily, Carvedilol 1 Tablet (of 6.25 mg) Oral b.i.d., Cholecalciferol 1 Tablet (of 100 mcg ) Oral daily, Cholecalciferol 1 Capsule (of 25 mcg ) Oral daily, Crestor 1 Tablet (of 10 mg) Oral daily, hydroCHLOROthiazide 0.5 Tablet (of 25 mg) Oral daily, Naproxen 1 Tablet (of 500 mg) Oral b.i.d., traMADol HCl 1 Tablet (of 50 mg) Oral four times a day Allergies: Erythromycin Base and Morphine Derivatives. Review of Systems: Review of Systems is not available for this patient. Vital Signs: Performed on Mar 22, 2021 08:15 Height - 72.00 in Weight - 211.8 lbs (HIGH) BSA - 2.18 sq.m BMI - 28.73 Temperature - 97.0 F (LOW) Pulse - 88 /min Respiration - 18 /min BP - 151/90 mm(hg) (HIGH) O2 Sat - 99 % Pain - 0 Performance Status: 0 - Fully active, able to carry on all predisease activities without restrictions. (ECOG) Physical Examination: ENMT - No mouth sores, no thrush, no jaundice, Respiratory - Lungs are clear to auscultation, Cardiovascular - Regular rate and rhythm of heart, Abdomen - Soft, bowel sounds present, Colostomy bag functioning fine, Extremities - No visible edema. Lab/Imaging: Test performed on Jan 25, 2021 08:10 WBC 4.4 10 3/uL RBC 4.81 10 6/uL HGB 13.8 g/dL HCT 42.3 % MCV 87.9 fL MCH 28.7 pg MCHC 32.6 g/dL RDW 12.9 % Platelet Count 191 10 3/cmm MPV 9.5 fL Neutrophils 2.95 10 3/uL Lymphocytes 0.7 10 3/uL Monocytes 0.4 10 3/uL Eosinophils 0.3 10 3/uL Basophils 0.1 10 3/uL Neutrophil % 66.4 % Lymphocyte % 14.9 % Monocyte % 9.9 % Eosinophil % 7.2 % Basophils % 1.1 % NRBC % 0 % Test performed on Jan 21, 2021 08:30 Sodium 138 mmol/L Potassium 3.7 mmol/L Chloride 103 mmol/L CO2 26 mmol/L Anion Gap 12.7 BUN 17 mg/dL Creatinine 0.9 mg/dL Cr Clearance (Est) 106.8000 mL/min eGFR 84.2 mL/min Glucose 123 mg/dL Osmolality - Calculated 289 mOsm/kg Calcium 8.9 mg/dL Protein, Total 6.3 g/dL Albumin 4.1 g/dL Globulin 2.2 g/dL Bilirubin, Total 0.3 mg/dL ALT (SGPT) 17 U/L AST (SGOT) 17 U/L Alkaline Phosphatase 54 IU/L Impression: moderately differentiated, invasive adenocarcinoma involving rectum per colonoscopy done on June 23, 2020 CT scan of chest abdomen pelvis done on June 23, 2020 showed no evidence of metastatic disease and rectal mucosal thickening consistent with rectal mass Clinically T2 versus T3, NX, MX Status post pacemaker History of rheumatic fever at age 8 with no long-term cardiac complication Started on combined chemoradiation with oral Xeloda 1800 mg p.o. twice daily 5 days a week on July 28, 2020, dose was reduced to 1500 mg p.o. twice daily 5 days a week on August 13, 2020 because of grade 1 hand-foot syndrome and diarrhea. Mr. Domínguez completed chemoradiation on September 01, 2020. And underwent robotic assisted LAR with loop ileostomy on October 27, 2020 and final pathology report showed moderately differentiated adenocarcinoma, carcinoma extends through muscularis propria and into pericolonic fat, treatment effect was present, no lymphovascular invasion seen, clear surgical margins, ypT3 and 1 out of 31 lymph node positive for metastatic disease, ypN1, Stage ypIII Plan: Discussed with patient regarding his labs white blood count 6.6 hemoglobin 12.3 hematocrit 38.3 platelets 154,000 CMP within normal limits Clinically, patient doing well with no new signs symptom suggestive of recurrence of disease, tolerating adjuvant therapy with FOLFOX well, will proceed with cycle #6/8 today and then he will return to clinic in 2 weeks with CBC CMP and for possible cycle #7/8 but patient is considering discontinue chemotherapy after this cycle but he will discuss with his family and decide as he is very eager to get his colostomy bag reversal, which as per patient will be done 4 to 6 weeks after his last chemotherapy. As mentioned above, return to clinic in 2 weeks with CBC CMP and if patient agreed to continue, her second last dose of adjuvant FOLFOX Signed By: Adelina Bundy M.D. <<Signature on File>>
== END 2021-03-30 23:59 | disposition home or self-care (01) ==
LOC: ONCMED 05:44
PROVIDERS: PCP Family Medicine; Visit Provider Internal Medicine Hematology & Oncology
DX: Z51.11 Encounter for antineoplastic chemotherapy (principal); C20 Malignant neoplasm of rectum; Z95.0 Presence of cardiac pacemaker; Z86.19 Personal history of other infectious and parasitic diseases; Z79.899 Other long term (current) drug therapy; Z92.21 Personal history of antineoplastic chemotherapy; Z92.3 Personal history of irradiation
CPT/HCPCS: 36591; 80053; 85025; 96367; 96368; 96372; 96375; 96413; 96415; 96416; 96523; 99215; J0640; J1100; J2469; J2505; J3490; J9190; J9263

== ENCOUNTER 2021-04-21 06:14 | Outpatient (RCR) | payer MEDICARE, SELFPAY ==
[2021-04-02 11:34] LABS: Basophils # 0.1 10^3/uL (0.0-0.1); Basophils % 0.7 %; Eosinophils # 0.2 10^3/uL (0.0-0.8); Eosinophils % 2.1 %; Hematocrit 39.9 % (42.0-52.0); Hemoglobin 12.7 g/dL (11.7-16.6); Lymphocytes # 0.7 10^3/uL (0.8-4.8); Lymphocytes % 9.1 %; Mean Corpuscular HGB Conc 31.8 g/dL (30.0-36.0); Mean Corpuscular Hemoglobin 29.3 pg (28.0-34.0); Mean Corpuscular Volume 92.1 fl (80-94); Mean Platelet Volume 10.2 fL (7.4-10.4); Monocytes # 0.8 10^3/uL (0.2-0.9); Monocytes % 10.2 %; Neutrophils # 6.22 10^3/uL (1.8-7.7); Neutrophils % 77.3 %; Nucleated Red Blood Cells % 0 %; Platelet Count 140 10^3/cmm (130-400); Red Blood Count 4.33 10^6/uL (4.1-5.3); Red Cell Distribution Width 15.5 % (12.1-15.1); White Blood Count 8.1 10^3/uL (4.0-10.0)
[2021-04-02 12:06] LABS: Alanine Aminotransferase 16 U/L (0-41); Albumin Level 3.9 g/dL (3.5-5.2); Alkaline Phosphatase 155 IU/L (40-130); Anion Gap 13.7 (5-19); Aspartate Amino Transferase 21 U/L (0-40); Blood Urea Nitrogen 13 mg/dL (8-23); Calcium 8.7 mg/dL (8.5-10.5); Carbon Dioxide 26 mmol/L (22-29); Chloride 104 mmol/L (98-107); Globulin 2.4 g/dL (1.3-4.6); Glomerular Filtration Rate 96.4 mL/min (90-130); Glucose 92 mg/dL (65-115); Osmolality Calculated 290 mOsm/kg (285-295); Potassium 3.7 mmol/L (3.5-5.1); Sodium 140 mmol/L (136-145); Total Bilirubin 0.4 mg/dL (0.15-1.2); Total Protein 6.3 g/dL (6.6-8.7)
--- NOTE | 2021-04-06 11:33 | ONC FU_ITS ---
Dr. Bundy follow up note Patient: Pramod Domínguez Unit #: [id number]: 1955 Dicatated By: Adelina Bundy M.D.Date of Visit:Apr 06, 2021 Onc Med Follow-up/Prog Note History of Present Illness: Mr. Domínguez is a 65-year-old gentleman with 3 month history of change in bowel habits. He underwent a colonoscopy on June 23, 2020 which showed circumferential malignant appearing mass at 8 cm. The pathology report confirmed invasive adenocarcinoma, moderately differentiated. A CEA checked on June 23, 2020 was 2.0. Mr Domínguez underwent CT scan of chest abdomen pelvis on June 23, 2020 which showed rectal mucosal thickening consistent with rectal mass; no lymphadenopathy and no metastatic disease to liver. Mr Domínguez was referred to Dr. Grover in [facility]. Dr Grover's impression was tumors likely at least T3 and MRI scan of pelvis was suggested but not done because of patient has pacemaker. Preop chemoradiation was recommended to downstage the tumor. Patient has no family history of colon cancer Patient has history of rheumatic fever at age 8 but no long-term cardiac complication. Status post pacemaker for AV block. Patient denies smoking or alcohol use. Started on combined chemoradiation with oral Xeloda on on July 28, 2020. His Xeloda was placed on hold for diarrhea and hand foot syndrome on August 10, 2020 and then his dose was reduced to 1500 mg twice daily with radiation at his followup on 08/17/2020. He was able to complete chemoradiation with the Xeloda at 1500 mg twice daily. He completed radiation therapy September 01, 2020 Mr Domínguez underwent robotic assisted sigmoid colon and upper rectum, extended low anterior resection and loop ileostomy for rectal cancer on October 27, 2020 and final pathology report came back moderately differentiated adenocarcinoma, carcinoma extends through muscularis propria and into pericolonic fat, clear surgical margins, no tumor perforation, treatment effect present, residual cancer and evidence of tumor regression, partial response. No lymphovascular invasion seen, ypT3, 1 out of 31 lymph node is positive ypN1. Mr. Murry was encouraged to pursue adjuvant chemotherapy. He was given a choice between 3 cycles of CAPOX or 6 months of FOLFOX. Mr. España has been elected to pursue adjuvant FOLFOX X6-8 cycles. He began his 1st cycle on December 30, 2020. Came for follow-up, denies any specific complaints, no fever chills, no nausea or vomiting, no diarrhea constipation, no peripheral numbness,, no mouth sores, no jaundice. Patient has decided to proceed with next cycle #7/8 with FOLFOX. Medications: Aspirin 1 Tablet (of 81 mg) Tablet, enteric coated Oral daily, B Complex 1 Tablet Oral daily, Benazepril HCl 1 Tablet (of 10 mg) Oral daily, Carvedilol 1 Tablet (of 6.25 mg) Oral b.i.d., Cholecalciferol 1 Tablet (of 100 mcg ) Oral daily, Cholecalciferol 1 Capsule (of 25 mcg ) Oral daily, Crestor 1 Tablet (of 10 mg) Oral daily, hydroCHLOROthiazide 0.5 Tablet (of 25 mg) Oral daily, Naproxen 1 Tablet (of 500 mg) Oral b.i.d., traMADol HCl 1 Tablet (of 50 mg) Oral four times a day Allergies: Erythromycin Base and Morphine Derivatives. Review of Systems: Review of Systems is not available for this patient. Vital Signs: Vitals are not available for this patient. Performance Status: 0 - Fully active, able to carry on all predisease activities without restrictions. (ECOG) Physical Examination: ENMT - No mouth sores, no thrush, no jaundice, Respiratory - Lungs are clear to auscultation, Cardiovascular - Regular rate and rhythm of heart, Abdomen - Soft, bowel sounds present, Colostomy site clear, Extremities - No visible edema. Lab/Imaging: Test performed on Jan 25, 2021 08:10 WBC 4.4 10 3/uL RBC 4.81 10 6/uL HGB 13.8 g/dL HCT 42.3 % MCV 87.9 fL MCH 28.7 pg MCHC 32.6 g/dL RDW 12.9 % Platelet Count 191 10 3/cmm MPV 9.5 fL Neutrophils 2.95 10 3/uL Lymphocytes 0.7 10 3/uL Monocytes 0.4 10 3/uL Eosinophils 0.3 10 3/uL Basophils 0.1 10 3/uL Neutrophil % 66.4 % Lymphocyte % 14.9 % Monocyte % 9.9 % Eosinophil % 7.2 % Basophils % 1.1 % NRBC % 0 % Test performed on Jan 21, 2021 08:30 Sodium 138 mmol/L Potassium 3.7 mmol/L Chloride 103 mmol/L CO2 26 mmol/L Anion Gap 12.7 BUN 17 mg/dL Creatinine 0.9 mg/dL Cr Clearance (Est) 106.8000 mL/min eGFR 84.2 mL/min Glucose 123 mg/dL Osmolality - Calculated 289 mOsm/kg Calcium 8.9 mg/dL Protein, Total 6.3 g/dL Albumin 4.1 g/dL Globulin 2.2 g/dL Bilirubin, Total 0.3 mg/dL ALT (SGPT) 17 U/L AST (SGOT) 17 U/L Alkaline Phosphatase 54 IU/L Impression: moderately differentiated, invasive adenocarcinoma involving rectum per colonoscopy done on June 23, 2020 CT scan of chest abdomen pelvis done on June 23, 2020 showed no evidence of metastatic disease and rectal mucosal thickening consistent with rectal mass Clinically T2 versus T3, NX, MX Status post pacemaker History of rheumatic fever at age 8 with no long-term cardiac complication Started on combined chemoradiation with oral Xeloda 1800 mg p.o. twice daily 5 days a week on July 28, 2020, dose was reduced to 1500 mg p.o. twice daily 5 days a week on August 13, 2020 because of grade 1 hand-foot syndrome and diarrhea. Mr. Domínguez completed chemoradiation on September 01, 2020. And underwent robotic assisted LAR with loop ileostomy on October 27, 2020 and final pathology report showed moderately differentiated adenocarcinoma, carcinoma extends through muscularis propria and into pericolonic fat, treatment effect was present, no lymphovascular invasion seen, clear surgical margins, ypT3 and 1 out of 31 lymph node positive for metastatic disease, ypN1, Stage ypIII Plan: Discussed with patient regarding his labs white blood count 8.1 hemoglobin 12.7 hematocrit 39.9 platelets 140,000 CMP within normal limits Clinically, patient doing well with no new signs symptom suggestive of recurrence of disease, patient has decided to continue with recommended schedule of FOLFOX, his lab work-up is within normal range, patient said he will come in the morning to take his second #7/8 with FOLFOX, then we will see him back 2 weeks from tomorrow with CBC CMP if reasonable to conclude his adjuvant therapy with FOLFOX. Signed By: Adelina Bundy M.D. <<Signature on File>>
[2021-04-07] MEDS: famotidine 20 mg/2 mL INJ IVP (10:48)
[2021-04-07] MEDS: dextrose 5% 250 ML 75 ML IV (10:50)
[2021-04-07] MEDS: palonosetron 0.25 mg/5 mL SDV IVP (10:50)
[2021-04-19 09:07] LABS: Basophils # 0.1 10^3/uL (0.0-0.1); Basophils % 0.7 %; Eosinophils # 0.1 10^3/uL (0.0-0.8); Eosinophils % 1.4 %; Hematocrit 40.1 % (42.0-52.0); Hemoglobin 12.6 g/dL (11.7-16.6); Lymphocytes # 0.6 10^3/uL (0.8-4.8); Lymphocytes % 8.7 %; Mean Corpuscular HGB Conc 31.4 g/dL (30.0-36.0); Mean Corpuscular Hemoglobin 29.6 pg (28.0-34.0); Mean Corpuscular Volume 94.4 fl (80-94); Mean Platelet Volume 10.1 fL (7.4-10.4); Monocytes # 0.6 10^3/uL (0.2-0.9); Monocytes % 8.7 %; Neutrophils # 5.65 10^3/uL (1.8-7.7); Neutrophils % 79.8 %; Nucleated Red Blood Cells % 0 %; Platelet Count 129 10^3/cmm (130-400); Red Blood Count 4.25 10^6/uL (4.1-5.3); Red Cell Distribution Width 15.4 % (12.1-15.1); White Blood Count 7.1 10^3/uL (4.0-10.0)
[2021-04-19 09:28] LABS: Alanine Aminotransferase 14 U/L (0-41); Albumin Level 3.8 g/dL (3.5-5.2); Alkaline Phosphatase 156 IU/L (40-130); Anion Gap 12.7 (5-19); Aspartate Amino Transferase 18 U/L (0-40); Blood Urea Nitrogen 14 mg/dL (8-23); Calcium 9.4 mg/dL (8.5-10.5); Carbon Dioxide 25 mmol/L (22-29); Chloride 107 mmol/L (98-107); Globulin 2.5 g/dL (1.3-4.6); Glomerular Filtration Rate 84.2 mL/min (90-130); Glucose 118 mg/dL (65-115); Osmolality Calculated 294 mOsm/kg (285-295); Potassium 3.7 mmol/L (3.5-5.1); Sodium 141 mmol/L (136-145); Total Bilirubin 0.4 mg/dL (0.15-1.2); Total Protein 6.3 g/dL (6.6-8.7)
[2021-04-19] MEDS: famotidine 20 mg/2 mL INJ IVP (10:33)
[2021-04-19] MEDS: dextrose 5% 250 ML 75 ML IV (10:34)
[2021-04-19] MEDS: palonosetron 0.25 mg/5 mL SDV IV (10:34)
--- NOTE | 2021-04-19 15:36 | ONC FU_ITS ---
Dr. Bundy follow up note Patient: Pramod Domínguez Unit #: [id number]: 1955 Dicatated By: Adelina Bundy M.D.Date of Visit:Apr 19, 2021 Onc Med Follow-up/Prog Note History of Present Illness: Mr. Domínguez is a 65-year-old gentleman with 3 month history of change in bowel habits. He underwent a colonoscopy on June 23, 2020 which showed circumferential malignant appearing mass at 8 cm. The pathology report confirmed invasive adenocarcinoma, moderately differentiated. A CEA checked on June 23, 2020 was 2.0. Mr Domínguez underwent CT scan of chest abdomen pelvis on June 23, 2020 which showed rectal mucosal thickening consistent with rectal mass; no lymphadenopathy and no metastatic disease to liver. Mr Domínguez was referred to Dr. Grover in [facility]. Dr Grover's impression was tumors likely at least T3 and MRI scan of pelvis was suggested but not done because of patient has pacemaker. Preop chemoradiation was recommended to downstage the tumor. Patient has no family history of colon cancer Patient has history of rheumatic fever at age 8 but no long-term cardiac complication. Status post pacemaker for AV block. Patient denies smoking or alcohol use. Started on combined chemoradiation with oral Xeloda on on July 28, 2020. His Xeloda was placed on hold for diarrhea and hand foot syndrome on August 10, 2020 and then his dose was reduced to 1500 mg twice daily with radiation at his followup on 08/17/2020. He was able to complete chemoradiation with the Xeloda at 1500 mg twice daily. He completed radiation therapy September 01, 2020 Mr Domínguez underwent robotic assisted sigmoid colon and upper rectum, extended low anterior resection and loop ileostomy for rectal cancer on October 27, 2020 and final pathology report came back moderately differentiated adenocarcinoma, carcinoma extends through muscularis propria and into pericolonic fat, clear surgical margins, no tumor perforation, treatment effect present, residual cancer and evidence of tumor regression, partial response. No lymphovascular invasion seen, ypT3, 1 out of 31 lymph node is positive ypN1. Mr. Murry was encouraged to pursue adjuvant chemotherapy. He was given a choice between 3 cycles of CAPOX or 6 months of FOLFOX. Mr. España has been elected to pursue adjuvant FOLFOX X6-8 cycles. He began his 1st cycle on December 30, 2020. Came for follow-up, denies any specific complaints, no fever chills, no nausea or vomiting, no diarrhea constipation, no mouth sores, no thrush, no jaundice, no skin rash, mild peripheral neuropathy otherwise tolerating FOLFOX well Medications: Aspirin 1 Tablet (of 81 mg) Tablet, enteric coated Oral daily, B Complex 1 Tablet Oral daily, Benazepril HCl 1 Tablet (of 10 mg) Oral daily, Carvedilol 1 Tablet (of 6.25 mg) Oral b.i.d., Cholecalciferol 1 Tablet (of 100 mcg ) Oral daily, Cholecalciferol 1 Capsule (of 25 mcg ) Oral daily, Crestor 1 Tablet (of 10 mg) Oral daily, hydroCHLOROthiazide 0.5 Tablet (of 25 mg) Oral daily, Naproxen 1 Tablet (of 500 mg) Oral b.i.d., traMADol HCl 1 Tablet (of 50 mg) Oral four times a day Allergies: Erythromycin Base and Morphine Derivatives. Review of Systems: Review of Systems is not available for this patient. Vital Signs: Performed on Apr 19, 2021 10:00 Height - 72.00 in Weight - 214 lbs (HIGH) BSA - 2.19 sq.m BMI - 29.02 Temperature - 97.2 F (LOW) Pulse - 77 /min Respiration - 18 /min BP - 137/78 mm(hg) O2 Sat - 97 % Pain - 0 Fatigue - 0 Performance Status: 0 - Fully active, able to carry on all predisease activities without restrictions. (ECOG) Physical Examination: ENMT - No mouth sores, no thrush, no jaundice, Respiratory - Lungs are clear to auscultation , Cardiovascular - Regular rate and rhythm of heart, Abdomen - Soft, bowel sounds present, Extremities - No visible edema. Lab/Imaging: Test performed on Jan 25, 2021 08:10 WBC 4.4 10 3/uL RBC 4.81 10 6/uL HGB 13.8 g/dL HCT 42.3 % MCV 87.9 fL MCH 28.7 pg MCHC 32.6 g/dL RDW 12.9 % Platelet Count 191 10 3/cmm MPV 9.5 fL Neutrophils 2.95 10 3/uL Lymphocytes 0.7 10 3/uL Monocytes 0.4 10 3/uL Eosinophils 0.3 10 3/uL Basophils 0.1 10 3/uL Neutrophil % 66.4 % Lymphocyte % 14.9 % Monocyte % 9.9 % Eosinophil % 7.2 % Basophils % 1.1 % NRBC % 0 % Test performed on Jan 21, 2021 08:30 Sodium 138 mmol/L Potassium 3.7 mmol/L Chloride 103 mmol/L CO2 26 mmol/L Anion Gap 12.7 BUN 17 mg/dL Creatinine 0.9 mg/dL Cr Clearance (Est) 106.8000 mL/min eGFR 84.2 mL/min Glucose 123 mg/dL Osmolality - Calculated 289 mOsm/kg Calcium 8.9 mg/dL Protein, Total 6.3 g/dL Albumin 4.1 g/dL Globulin 2.2 g/dL Bilirubin, Total 0.3 mg/dL ALT (SGPT) 17 U/L AST (SGOT) 17 U/L Alkaline Phosphatase 54 IU/L Impression: moderately differentiated, invasive adenocarcinoma involving rectum per colonoscopy done on June 23, 2020 CT scan of chest abdomen pelvis done on June 23, 2020 showed no evidence of metastatic disease and rectal mucosal thickening consistent with rectal mass Clinically T2 versus T3, NX, MX Status post pacemaker History of rheumatic fever at age 8 with no long-term cardiac complication Started on combined chemoradiation with oral Xeloda 1800 mg p.o. twice daily 5 days a week on July 28, 2020, dose was reduced to 1500 mg p.o. twice daily 5 days a week on August 13, 2020 because of grade 1 hand-foot syndrome and diarrhea. Mr. Domínguez completed chemoradiation on September 01, 2020. And underwent robotic assisted LAR with loop ileostomy on October 27, 2020 and final pathology report showed moderately differentiated adenocarcinoma, carcinoma extends through muscularis propria and into pericolonic fat, treatment effect was present, no lymphovascular invasion seen, clear surgical margins, ypT3 and 1 out of 31 lymph node positive for metastatic disease, ypN1, Stage ypIII Plan: Discussed with patient regarding his labs white blood count 7.1 hemoglobin 12.6 hematocrit 40.1 platelets 129,000 CMP within normal limits Clinically, patient doing well with no new signs symptom suggestive of recurrence of disease, tolerating adjuvant chemotherapy with FOLFOX well, will proceed with final dose of FOLFOX today with that he will conclude his adjuvant therapy and then will refer him to Dr. Grover, for evaluation regarding colostomy closure. Patient return to clinic in 1 month with CBC CMP and port maintenance and after that we will follow him every 3 months Signed By: Adelina Bundy M.D. <<Signature on File>>
[2021-04-21] MEDS: pegfilgrastim-bmez 6 mg/0.6 mL SYR SUBCUT (11:03)
== END 2021-04-29 23:59 | disposition home or self-care (01) ==
LOC: ONCMED 06:14
PROVIDERS: PCP Family Medicine; Visit Provider Internal Medicine Hematology & Oncology
DX: Z51.11 Encounter for antineoplastic chemotherapy (principal); C20 Malignant neoplasm of rectum; Z95.0 Presence of cardiac pacemaker; Z86.19 Personal history of other infectious and parasitic diseases; Z92.3 Personal history of irradiation; Z92.21 Personal history of antineoplastic chemotherapy; Z79.899 Other long term (current) drug therapy
CPT/HCPCS: 36591; 80053; 85025; 96367; 96368; 96372; 96375; 96413; 96415; 96416; 96523; 99215; J0640; J1100; J2469; J2505; J3490; J9190; J9263; Q5120

== ENCOUNTER 2021-06-01 13:42 | Outpatient (CLI) | payer MEDICARE, SELFPAY ==
--- NOTE | 2021-06-01 14:15 | USCV_ITS ---
Catrachita Pramod Age: 65 Gender: M : 1955 Exam Date: 06/01/2021 14:03 Ordering Phys: Hussain Haynes MD ([email or web address]) Technologist: Viktoriya Ross Exam Location: [facility] [place] Indication: cadiomyopathy BP: 138 / 76 HR: 93 Rhythm: Other Technical Quality: Adequate MEASUREMENTS (Male / Female) Normal Values 2D ECHO LV Diastolic Diameter PLAX 5.9 cm 4.2 - 5.9 / 3.9 - 5.3 cm LV Systolic Diameter PLAX 4.8 cm IVS Diastolic Thickness 1.7 cm 0.6 - 1.0 / 0.6 - 0.9 cm IVS Systolic Thickness 2.1 cm LVPW Diastolic Thickness 1.5 cm 0.6 - 1.0 / 0.6 - 0.9 cm LVPW Systolic Thickness 2.5 cm LVOT Diameter 2.0 cm LV Ejection Fraction 2D Teich 36.6 % LV Ejection Fraction MOD 2C 52.5 % LV Ejection Fraction 2C AL 53.2 % LA Diameter 3.0 cm LA Width 2.7 cm LA Height 2.7 cm RA Width 2.9 cm RA Height 3.4 cm Aorta at Sinotubular Diameter 3.1 cm DOPPLER AV Peak Velocity 109.0 cm/s LVOT Peak Velocity 114.0 cm/s AV Area Cont Eq vti 2.9 cm squared AV Area Cont Eq pk 3.3 cm squared MV Area PHT 2.1 cm squared Mitral E to A Ratio 0.6 MV E' Velocity 35.5 cm/s Mitral E to MV E' Ratio 9.8 Mitral E to LV E' Lateral Ratio 8.0 Mitral E to LV E' Septal Ratio 12.8 TR Peak Velocity 245.1 cm/s TR Peak Gradient 24.0 mmHg TR Mean Velocity 213.6 cm/s TR Mean Gradient 18.6 mmHg TR Velocity Time Integral 63.1 cm TV Peak E Velocity 65.0 cm/s PV Peak Velocity 89.0 cm/s RV Acceleration Time 0.1 s RV Ejection Time 0.3 s RV AcT/ET 0.3 FINDINGS Left Ventricle Moderately increased left ventricular cavity size. Severely decreased left ventricular systolic function. Global left ventricular hypokinesis. Left ventricular ejection fraction is estimated at 36 %. Grade I/IV diastolic dysfunction (abnormal relaxation filling pattern), normal to mildly elevated filling pressures. Right Ventricle Normal right ventricular size. Catheter/pacemaker wire visualized in the right ventricle. RVSP could not be calculated due to incomplete tricuspid regurgitation velocity profile. Right Atrium Catheter/pacemaker wire in the right atrial cavity. Left Atrium The left atrium is normal in size. Mitral Valve Structurally normal mitral valve without significant stenosis or prolapse. There is no mitral regurgitation. Aortic Valve Moderate aortic valve calcification. No aortic valve stenosis. Mild aortic valve regurgitation. Tricuspid Valve Structurally normal tricuspid valve without significant stenosis or regurgitation. Pulmonary artery systolic pressure is normal. Pulmonic Valve Structurally normal pulmonic valve without significant stenosis. There is no pulmonic regurgitation. Pericardium Normal pericardium without effusion. Aorta Normal ascending aorta dimension. CONCLUSIONS 1-Moderately increased left ventricular cavity size. Severely decreased left ventricular systolic function. Global left ventricular hypokinesis. Left ventricular ejection fraction is estimated at 36 %. Grade I/IV diastolic dysfunction (abnormal relaxation filling pattern), normal to mildly elevated filling pressures. 2-Normal right ventricular size. Catheter/pacemaker wire visualized in the right ventricle 3-Moderate aortic valve calcification. No aortic valve stenosis. Mild aortic valve regurgitation. 4-Structurally normal mitral valve without significant stenosis or prolapse. There is no mitral regurgitation. 5-There is no pericardial effusion. 6-No significant change since the prior echocardiogram study of 01/13/2020. Hussain Haynes MD (Electronically Signed) Final Date: 01 June 2021 21:24 S
== END 2021-06-01 13:43 | disposition home or self-care (01) ==
LOC: RAD 13:44
PROVIDERS: PCP Family Medicine; Visit Provider Internal Medicine Cardiovascular Disease
DX: I42.7 Cardiomyopathy due to drug and external agent (principal); R06.02 Shortness of breath; T45.1X5A Adverse effect of antineoplastic and immunosuppressive drugs, initial encounter
CPT/HCPCS: 93306

== ENCOUNTER 2021-06-02 06:40 | Outpatient (CLI) | payer MEDICARE, SELFPAY ==
[2021-06-02 16:55] LABS: Basophils % 0.8 %; Eosinophils # 0.4 10^3/uL (0.0-0.8); Eosinophils % 7.5 %; Hemoglobin 13.5 g/dL (11.7-16.6); Lymphocytes # 0.9 10^3/uL (0.8-4.8); Lymphocytes % 17.2 %; Mean Corpuscular HGB Conc 32.9 g/dL (30.0-36.0); Mean Corpuscular Hemoglobin 30.1 pg (28.0-34.0); Mean Corpuscular Volume 91.5 fl (80-94); Mean Platelet Volume 10.2 fL (7.4-10.4); Monocytes # 0.6 10^3/uL (0.2-0.9); Monocytes % 11.2 %; Neutrophils % 63.1 %; Nucleated Red Blood Cells % 0 %; Platelet Count 152 10^3/cmm (130-400); Red Blood Count 4.48 10^6/uL (4.1-5.3); Red Cell Distribution Width 12.5 % (12.1-15.1); White Blood Count 5.1 10^3/uL (4.0-10.0)
[2021-06-02 17:17] LABS: Alanine Aminotransferase 18 U/L (0-41); Albumin Level 4.1 g/dL (3.5-5.2); Alkaline Phosphatase 95 IU/L (40-130); Anion Gap 15.4 (5-19); Aspartate Amino Transferase 23 U/L (0-40); Blood Urea Nitrogen 10 mg/dL (8-23); Calcium 8.9 mg/dL (8.5-10.5); Carbon Dioxide 27 mmol/L (22-29); Chloride 100 mmol/L (98-107); Globulin 2.5 g/dL (1.3-4.6); Glomerular Filtration Rate 112.5 mL/min (90-130); Glucose 123 mg/dL (65-115); Osmolality Calculated 288 mOsm/kg (285-295); Potassium 3.4 mmol/L (3.5-5.1); Sodium 139 mmol/L (136-145); Total Bilirubin 0.5 mg/dL (0.15-1.2); Total Protein 6.6 g/dL (6.6-8.7)
== END 2021-06-02 06:41 | disposition home or self-care (01) ==
LOC: ONCMED 06:41
PROVIDERS: PCP Family Medicine; Visit Provider Internal Medicine Hematology & Oncology
DX: C20 Malignant neoplasm of rectum (principal); Z79.899 Other long term (current) drug therapy
CPT/HCPCS: 36591; 80053; 85025

== ENCOUNTER → 2021-06-28 10:42 | Outpatient (BNVA) | payer MEDICARE, SELFPAY | PROVIDERS: PCP Family Medicine; Visit Provider Internal Medicine Clinical Cardiac Electrophysiology | DX: Z01.812 Encounter for preprocedural laboratory examination (principal); Z20.822 Contact with and (suspected) exposure to COVID-19 | CPT/HCPCS: 87635 ==

== ENCOUNTER 2021-07-02 07:53 | Outpatient (CLI) | payer MEDICARE, SELFPAY ==
[2021-07-02 08:17] LABS: Basophils % 0.4 %; Eosinophils # 0.1 10^3/uL (0.0-0.8); Eosinophils % 2.8 %; Hematocrit 39.7 % (42.0-52.0); Lymphocytes # 0.4 10^3/uL (0.8-4.8); Lymphocytes % 14.4 %; Mean Corpuscular HGB Conc 32.7 g/dL (30.0-36.0); Mean Corpuscular Hemoglobin 30.1 pg (28.0-34.0); Mean Corpuscular Volume 91.9 fl (80-94); Mean Platelet Volume 9.3 fL (7.4-10.4); Monocytes # 0.3 10^3/uL (0.2-0.9); Monocytes % 10.2 %; Neutrophils # 2.05 10^3/uL (1.8-7.7); Neutrophils % 71.8 %; Nucleated Red Blood Cells % 0 %; Platelet Count 119 10^3/cmm (130-400); Red Blood Count 4.32 10^6/uL (4.1-5.3); Red Cell Distribution Width 12.5 % (12.1-15.1); White Blood Count 2.9 10^3/uL (4.0-10.0)
[2021-07-02 08:35] LABS: Alanine Aminotransferase 20 U/L (0-41); Alkaline Phosphatase 78 IU/L (40-130); Anion Gap 12.1 (5-19); Aspartate Amino Transferase 24 U/L (0-40); Blood Urea Nitrogen 15 mg/dL (8-23); Calcium 8.2 mg/dL (8.5-10.5); Carbon Dioxide 28 mmol/L (22-29); Chloride 100 mmol/L (98-107); Globulin 2.7 g/dL (1.3-4.6); Glomerular Filtration Rate 84.2 mL/min (90-130); Glucose 94 mg/dL (65-115); Osmolality Calculated 283 mOsm/kg (285-295); Potassium 4.1 mmol/L (3.5-5.1); Sodium 136 mmol/L (136-145); Total Bilirubin 0.4 mg/dL (0.15-1.2); Total Protein 6.7 g/dL (6.6-8.7)
--- NOTE | 2021-07-02 09:29 | ONC FU_ITS ---
Dr. Bundy follow up note Patient: Pramod Domínguez Unit #: [id number]: 1955 Dicatated By: Adelina Bundy M.D.Date of Visit:Jul 02, 2021 Onc Med Follow-up/Prog Note History of Present Illness: Mr. Domínguez is a 65-year-old gentleman with 3 month history of change in bowel habits. He underwent a colonoscopy on June 23, 2020 which showed circumferential malignant appearing mass at 8 cm. The pathology report confirmed invasive adenocarcinoma, moderately differentiated. A CEA checked on June 23, 2020 was 2.0. Mr Domínguez underwent CT scan of chest abdomen pelvis on June 23, 2020 which showed rectal mucosal thickening consistent with rectal mass; no lymphadenopathy and no metastatic disease to liver. Mr Domínguez was referred to Dr. Grover in [facility]. Dr Grover's impression was tumors likely at least T3 and MRI scan of pelvis was suggested but not done because of patient has pacemaker. Preop chemoradiation was recommended to downstage the tumor. Patient has no family history of colon cancer Patient has history of rheumatic fever at age 8 but no long-term cardiac complication. Status post pacemaker for AV block. Patient denies smoking or alcohol use. Started on combined chemoradiation with oral Xeloda on on July 28, 2020. His Xeloda was placed on hold for diarrhea and hand foot syndrome on August 10, 2020 and then his dose was reduced to 1500 mg twice daily with radiation at his followup on 08/17/2020. He was able to complete chemoradiation with the Xeloda at 1500 mg twice daily. He completed radiation therapy September 01, 2020 Mr Domínguez underwent robotic assisted sigmoid colon and upper rectum, extended low anterior resection and loop ileostomy for rectal cancer on October 27, 2020 and final pathology report came back moderately differentiated adenocarcinoma, carcinoma extends through muscularis propria and into pericolonic fat, clear surgical margins, no tumor perforation, treatment effect present, residual cancer and evidence of tumor regression, partial response. No lymphovascular invasion seen, ypT3, 1 out of 31 lymph node is positive ypN1. Mr. Murry was encouraged to pursue adjuvant chemotherapy. He was given a choice between 3 cycles of CAPOX or 6 months of FOLFOX. Mr. España has been elected to pursue adjuvant FOLFOX X6-8 cycles. He began his 1st cycle on December 30, 2020.And completed 8 cycles on 04/19/2021 Came for follow-up, denies any specific complaints except mild discomfort in left anterior chest due to procedure done to replace his pacemaker battery yesterday. As per patient he was also started on spironolactone about 3 weeks ago. Patient was due for colostomy reversal but his surgeon required cardiac clearance and during cardiac evaluation he was found to have pacemaker with a low battery, so colostomy reversal was postponed and now patient will call his surgeon for colostomy reversal. Denies any fever chills, denies any nausea or vomiting denies any jaundice denies any melena or hematochezia denies any abdominal pain, appetite is good. Medications: Aspirin 1 Tablet (of 81 mg) Tablet, enteric coated Oral daily, B Complex 1 Tablet Oral daily, Benazepril HCl 1 Tablet (of 10 mg) Oral daily, Carvedilol 1 Tablet (of 6.25 mg) Oral b.i.d., Cholecalciferol 1 Tablet (of 100 mcg ) Oral daily, Cholecalciferol 1 Capsule (of 25 mcg ) Oral daily, Crestor 1 Tablet (of 10 mg) Oral daily, hydroCHLOROthiazide 0.5 Tablet (of 25 mg) Oral daily, Naproxen 1 Tablet (of 500 mg) Oral b.i.d., traMADol HCl 1 Tablet (of 50 mg) Oral four times a day Allergies: Erythromycin Base and Morphine Derivatives. Review of Systems: Review of Systems is not available for this patient. Vital Signs: Performed on Jul 02, 2021 08:42 Height - 72.00 in Weight - 207.2 lbs (LOW) BSA - 2.16 sq.m BMI - 28.10 Temperature - 99.2 F (HIGH) Pulse - 86 /min Respiration - 18 /min BP - 109/63 mm(hg) O2 Sat - 96 % Pain - 8 Fatigue - 8 Performance Status: 0 - Fully active, able to carry on all predisease activities without restrictions. (ECOG) Physical Examination: ENMT - No mouth sores, no thrush, no jaundice, Respiratory - Lungs are clear to auscultation, Cardiovascular - Regular rate and rhythm of heart, Abdomen - Soft, bowel sounds present, Colostomy site clear, Extremities - No visible edema. Lab/Imaging: Test performed on Jan 25, 2021 08:10 WBC 4.4 10 3/uL RBC 4.81 10 6/uL HGB 13.8 g/dL HCT 42.3 % MCV 87.9 fL MCH 28.7 pg MCHC 32.6 g/dL RDW 12.9 % Platelet Count 191 10 3/cmm MPV 9.5 fL Neutrophils 2.95 10 3/uL Lymphocytes 0.7 10 3/uL Monocytes 0.4 10 3/uL Eosinophils 0.3 10 3/uL Basophils 0.1 10 3/uL Neutrophil % 66.4 % Lymphocyte % 14.9 % Monocyte % 9.9 % Eosinophil % 7.2 % Basophils % 1.1 % NRBC % 0 % Test performed on Jan 21, 2021 08:30 Sodium 138 mmol/L Potassium 3.7 mmol/L Chloride 103 mmol/L CO2 26 mmol/L Anion Gap 12.7 BUN 17 mg/dL Creatinine 0.9 mg/dL Cr Clearance (Est) 106.8000 mL/min eGFR 84.2 mL/min Glucose 123 mg/dL Osmolality - Calculated 289 mOsm/kg Calcium 8.9 mg/dL Protein, Total 6.3 g/dL Albumin 4.1 g/dL Globulin 2.2 g/dL Bilirubin, Total 0.3 mg/dL ALT (SGPT) 17 U/L AST (SGOT) 17 U/L Alkaline Phosphatase 54 IU/L Impression: moderately differentiated, invasive adenocarcinoma involving rectum per colonoscopy done on June 23, 2020 CT scan of chest abdomen pelvis done on June 23, 2020 showed no evidence of metastatic disease and rectal mucosal thickening consistent with rectal mass Clinically T2 versus T3, NX, MX Status post pacemaker History of rheumatic fever at age 8 with no long-term cardiac complication Started on combined chemoradiation with oral Xeloda 1800 mg p.o. twice daily 5 days a week on July 28, 2020, dose was reduced to 1500 mg p.o. twice daily 5 days a week on August 13, 2020 because of grade 1 hand-foot syndrome and diarrhea. Mr. Domínguez completed chemoradiation on September 01, 2020. And underwent robotic assisted LAR with loop ileostomy on October 27, 2020 and final pathology report showed moderately differentiated adenocarcinoma, carcinoma extends through muscularis propria and into pericolonic fat, treatment effect was present, no lymphovascular invasion seen, clear surgical margins, ypT3 and 1 out of 31 lymph node positive for metastatic disease, ypN1, Stage ypIII Plan: Discussed with patient regarding his labs white blood count 2.9 compared to 5.1 on 06/02/2021 hemoglobin 13 hematocrit 39.7 platelets 119,000 compared to 152,000 previously ANC 2049 CMP within normal limits Clinically, patient doing well with no new signs symptoms suggestive of recurrence of disease, patient is awaiting colostomy reversal, which was delayed due to obtaining cardiac clearance, during evaluation he was found to have pacemaker with a low battery, which was replaced yesterday. Patient will call surgeon to reschedule for colostomy reversal His follow-up labs done today shows mild leukopenia/thrombocytopenia etiology probably drug-related, will monitor and repeat CBC in a week, there is a further decrease, may hold spironolactone otherwise if he improves, then we will see him back in 3 months with CBC CMP and CEA in the meantime he will continue monthly port maintenance. Signed By: Adelina Bundy M.D. <<Signature on File>>
== END 2021-07-02 07:54 | disposition home or self-care (01) ==
LOC: ONCMED 07:55
PROVIDERS: PCP Family Medicine; Visit Provider Internal Medicine Hematology & Oncology
DX: Z08 Encounter for follow-up examination after completed treatment for malignant neoplasm (principal); Z85.048 Personal history of other malignant neoplasm of rectum, rectosigmoid junction, and anus; Z95.0 Presence of cardiac pacemaker; Z79.899 Other long term (current) drug therapy; Z92.21 Personal history of antineoplastic chemotherapy; Z92.3 Personal history of irradiation; Z93.3 Colostomy status
CPT/HCPCS: 36591; 80053; 85025; 99214

== ENCOUNTER → 2021-07-05 10:00 | Outpatient (BNVA) | payer MEDICARE, SELFPAY | PROVIDERS: PCP Family Medicine; Visit Provider Colon & Rectal Surgery | DX: Z01.812 Encounter for preprocedural laboratory examination (principal); Z20.822 Contact with and (suspected) exposure to COVID-19 | CPT/HCPCS: 87635 ==

== ENCOUNTER 2021-07-09 13:14 | Outpatient (CLI) | payer MEDICARE, SELFPAY ==
[2021-07-09 14:00] VITALS: BP 103/76; PULSE 58; RESP 16; TEMP 36.5; O2SAT 96; BMI 28.5
[2021-07-09 15:25] VITALS: BP 107/68; PULSE 58; RESP 16; TEMP 36.7; O2SAT 92
== END 2021-07-09 13:15 | disposition home or self-care (01) ==
LOC: OPS 13:16
PROVIDERS: PCP Family Medicine; Visit Provider Family Medicine
DX: U07.1 COVID-19 (principal)
CPT/HCPCS: 96365

== ENCOUNTER 2021-07-21 09:29 | Emergency (ER) | payer MEDICARE, SELFPAY ==
[2021-07-21 09:42] VITALS: BP 132/86; PULSE 90; RESP 14; TEMP 36.5; O2SAT 94; BMI 28.5
--- NOTE | 2021-07-21 09:43 | ECG_ITS ---
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 Measurements Intervals [place] Rate: 85 P: 48 ME: 214 QRS: 27 QRSD: 127 T: 65 QT: 365 QTc: 434 Interpretive Statements ELECTRONIC VENTRICULAR PACEMAKER Compared to ECG 08/14/2019 11:53:54 Atrial-paced complex(es) or rhythm no longer present Electronically Signed On 07-22-2021 8:52:00 DRUG SAFETY DATA MANAGEMENT SPECIALIST by Fernie Bueno M.D. [id number]
--- NOTE | 2021-07-21 09:50 | W.ED.SOB ---
HPI - SOB/Dyspnea General: Chief Complaint: Shortness of Breath/Dyspnea Stated Complaint: WEAKNESS FROM PACEMAKER INSERTION Time Seen by Provider: 07/21/21 09:33 History of Present Illness: HPI Narrative: 65-year-old male presents emergency room complaining of weakness and some shortness of breath. Patient earlier this month had a pacemaker replaced. But told weeks ago show after his pacemaker was placed he was diagnosed with Covid. He received monoclonal antibody infusions. Since that time he has continued to have a cough and some shortness of breath that is more noticeable and has been past with exertional activities. In talking to him it sounds like he has an implantable defibrillator that was replaced he is thought to have had some kind of potentially ischemic cardiomyopathy however we are of records because he was done in Spring. In a cardiology notes there is a mention that he has nonischemic cardiomyopathy, but there is a mention of a history of previous myocardial infarction in the cardiology notes as well. Notes that he had a back surgery after which he had some heart problems there is very thick yellow hydrostatic he never had bypass or stenting done. He is not had any chest pain recently. This cough is not been reproductively is not had any point in which he suddenly felt significant more shortness of breath. Denies any fever sweats or chills.Patient does have a history of colorectal cancer and at the colostomy in place. Patient had an echocardiogram in May that showed 36% ejection fraction.And cardiology notes there is mention of a cardiac cath done in January 2020 due to an abnormal Lexiscan stress test he is noted to have single-vessel disease that is mild and does not look like there is any intervention. MD elicited complaint: shortness of breath Pertinent past history: congestive heart failure and diabetes Onset (ago): hour(s) Timing: intermittent Severity: moderate Exacerbating factors: exertion and coughing Known history of: congestive heart failure and diabetes Associated symptoms: Reports cough; Deny abdominal pain, chest congestion, chest pain, diaphoresis, dizziness, extremity pain, fever(s), hemoptysis, lightheadedness, myalgias, nausea, orthopnea, palpitations, paresthesias, polydipsia, polyuria, rash, sense of impending doom, syncope or vomiting Treatment prior to arrival: none Review of Systems Const: Denies: fever(s) or diaphoresis ENMT: Denies: throat pain, ear or mastoid pain, nasal discharge or nasal congestion Card: Denies: chest pain, palpitations, lightheadedness, syncope or orthopnea Resp: Denies: hemoptysis or chest congestion GI: Denies: abdominal pain, nausea or vomiting : Denies: flank pain, dysuria, urinary frequency or urinary urgency Musc: Denies: extremity pain Skin/Breast: Denies: rash or pruritus Neuro: Denies: dizziness Endo: Denies: polyuria or polydipsia PFSH ED PFSH: Medical History Cardiomyopathy Hepatitis A Hypertension Myocardial infarction Pacemaker Rectal cancer Surgical History H/O neck surgery History of back surgery History of carpal tunnel release left, 08/15/2019 right, 05/23/2019 History of low anterior resection of rectum Hx of cardiac pacemaker Hx of colonoscopy (06/23/20) Hx of reduction of orbital fracture Ileostomy status Port-A-Cath in place (12/10/20) Family History Mother CAD (coronary artery disease) Cancer Dementia Hyperlipidemia Hypertension Grandfather Diabetes Hyperlipidemia Hypertension Father Hyperlipidemia Hypertension Denies family history of Clotting disorder Chronic kidney disease (CKD) Anesthesia complication Bleeding disorder Family history of premature coronary artery disease Lung disease Stroke Social History Smoking and tobacco status: never smoked Alcohol intake: current Alcohol intake frequency: few times a week Household members: spouse Marital status: Current occupational status: retired History of recent travel: No Physical Exam Const: COMMON NORMALS: no acute distress GENERAL APPEARANCE: cooperative and comfortable ORIENTATION/CONSCIOUSNESS: Yes awake, Yes oriented to person, Yes oriented to place and Yes oriented to time HENMT: COMMON NORMALS: normocephalic, atraumatic and hearing grossly normal bilaterally HEAD & SCALP: normocephalic and atraumatic Neck/C-Spine: COMMON NORMALS: no JVD Resp: COMMON NORMALS: normal respiratory effort, No retractions, No use of accessory muscles and clear to auscultation bilaterally AUSCULTATION: clear to auscultation bilaterally Cardio: COMMON NORMALS: no JVD, regular rate, regular rhythm and No murmurs present (Cardio) RATE: regular rate RHYTHM: regular rhythm GI: COMMON NORMALS: Soft to palpation and No hepatosplenomegaly present AUSCULTATION: Yes normoactive bowel sounds PALPATION: Yes Soft to palpation, No Tenderness to palpation present (GI), No Guarding due to palpation present (GI) and Yes No hepatosplenomegaly present Extremity: COMMON NORMALS: normal to inspection, capillary refill normal, no clubbing, cyanosis or edema, no calf tenderness and no pedal edema Neuro: SENSORIUM/ORIENTATION: Yes oriented to person, Yes oriented to place and Yes oriented to time Skin: COMMON NORMALS: no rashes or lesions noted GENERAL SKIN EXAM: no rashes or lesions noted Course Vital Signs: Vital signs: Vital Signs Temperature 97.7 F 07/21/21 09:42 Pulse Rate 72 07/21/21 16:35 Respiratory Rate 20 H 07/21/21 16:35 Blood Pressure 114/73 07/21/21 16:35 Pulse Oximetry 96 07/21/21 16:35 MDM - SOB/Dyspnea MDM Narrative: Medical decision making narrative: Patient tested positive for COVID-19 on 07/05/2021. He still has some residual weakness. Labs imaging and EKG reviewed. No indication at this point for admission. We will go ahead and discharge home. His oxygen sats are good. She has any worsening or change problems return. Discussed with him usual course of COVID-19. Lab Data: Labs: Lab Results 07/21/21 07/21/21 07/21/21 10:13 10:13 10:13 WBC 5.2 10^3/uL 10^3/ uL (4.0-10.0) RBC 4.64 10^6/uL 10^6 /uL (4.1-5.3) Hgb 13.8 g/dL g/dL (11.7-16.6) Hct 40.1 % L % (42.0-52.0) MCV 86.4 fl fl (80-94) MCH 29.7 pg pg (28.0-34.0) MCHC 34.4 g/dL g/dL (30.0-36.0) RDW 12.2 % % (12.1-15.1) Plt Count 307 10^3/cmm 10^3 /cmm (130-400) MPV 8.6 fL fL (7.4-10.4) Neut % (Auto) 80.0 % % Lymph % (Auto) 11.7 % % [place] % (Auto) 7.1 % % Eos % (Auto) 0.4 % % Baso % (Auto) 0.6 % % Neut # (Auto) 4.17 10^3/uL 10^3 /uL (1.8-7.7) Lymph # (Auto) 0.6 10^3/uL L 10^ 3/uL (0.8-4.8) [place] # (Auto) 0.4 10^3/uL 10^3/ uL (0.2-0.9) Eos # (Auto) 0.0 10^3/uL 10^3/ uL (0.0-0.8) Baso # (Auto) 0.0 10^3/uL 10^3/ uL (0.0-0.1) Nucleated RBC % (a uto) 0 % % Nucleated RBCs # 0.0 /100WBC /100W BC Sodium 135 mmol/L L mmol /L (136-145) Potassium 4.4 mmol/L mmol/L (3.5-5.1) Chloride 98 mmol/L mmol/L (98-107) Carbon Dioxide 21 mmol/L L mmol/ L (22-29) Anion Gap 20.4 H (5-19) BUN 13 mg/dL mg/dL (8-23) Creatinine 0.9 mg/dL mg/dL (0.7-1.2) GFR Calculation 84.2 mL/min L mL/ min (90-130) Glucose 159 mg/dL H mg/dL (65-115) Calculated Osmolal ity 283 mOsm/kg L mOs m/kg (285-295) Calcium 9.0 mg/dL mg/dL (8.5-10.5) Magnesium 1.8 mg/dL mg/dL (1.7-2.3) Total Bilirubin 0.5 mg/dL mg/dL (0.15-1.2) AST 21 U/L U/L (0-40) ALT 23 U/L U/L (0-41) Alkaline Phosphata se 98 IU/L IU/L (40-130) Troponin T Baselin e 11 ng/L ng/L (0-15) Troponin T 120 Min [place] Delta Troponin T Troponin T Hi Sens 6Hr Troponin T Hi Sens 6Hr Delta NT-Pro-B Natriuret Pep 75 pg/mL pg/mL (0-125) Total Protein 6.8 g/dL g/dL (6.6-8.7) Albumin 3.8 g/dL g/dL (3.5-5.2) Globulin 3.0 g/dL g/dL (1.3-4.6) Urine Color Urine Appearance Urine pH Ur Specific Gravit y Urine Protein Urine Glucose (UA) Urine Ketones Urine Blood Urine Nitrate Urine Bilirubin Urine Urobilinogen Ur Leukocyte Ondina ase 07/21/21 07/21/21 07/21/21 11:13 12:13 16:07 WBC RBC Hgb Hct MCV MCH MCHC RDW Plt Count MPV Neut % (Auto) Lymph % (Auto) [place] % (Auto) Eos % (Auto) Baso % (Auto) Neut # (Auto) Lymph # (Auto) [place] # (Auto) Eos # (Auto) Baso # (Auto) Nucleated RBC % (a uto) Nucleated RBCs # Sodium Potassium Chloride Carbon Dioxide Anion Gap BUN Creatinine GFR Calculation Glucose Calculated Osmolal ity Calcium Magnesium Total Bilirubin AST ALT Alkaline Phosphata se Troponin T Baselin e Troponin T 120 Min [place] 10.51 ng/L ng/L (0-15) Delta Troponin T -0.49 ABS# L ABS# (0-10) Troponin T Hi Sens 6Hr 10.26 ng/L ng/L (0-15) Troponin T Hi Sens 6Hr Delta -0.74 ng/L L ng/L (0-12) NT-Pro-B Natriuret Pep Total Protein Albumin Globulin Urine Color Yellow (Yellow) Urine Appearance Clear (CLEAR) Urine pH 7 (5-7) Ur Specific Gravit y 1.005 (1.005-1.030) Urine Protein Neg (Negative) Urine Glucose (UA) Norm (Normal) Urine Ketones Negative (Negative) Urine Blood Neg (Negative) Urine Nitrate Negative (Negative) Urine Bilirubin Neg (Negative) Urine Urobilinogen Norm mg/dL mg/dL (Negative) Ur Leukocyte Ondina ase Negative (Negative) Discharge Plan Discharge Patient Disposition: Home Clinical Impression: COVID-19 Condition: Stable Prescriptions: No Action cholecalciferol (vitamin D3) 10 mcg (400 unit) capsule 10 mcg PO QAM RF: 0 aspirin [Adult Aspirin Regimen] 81 mg tablet,delayed release (DR/EC) 81 mg PO QAM RF: 0 carvedilol 6.25 mg tablet 6.25 mg PO BID 90 Days Qty: 180 RF: 3 naproxen 500 mg tablet 500 mg PO BID PRN (Reason: Pain) RF: 0 tramadol 50 mg tablet 50 mg PO QID PRN (Reason: Pain) RF: 0 lidocaine-prilocaine 2.5-2.5 % cream 1 applic topical . DIRECTED RF: 0 spironolactone 25 mg tablet 25 mg PO QAM RF: 0 hydrochlorothiazide 25 mg tablet 12.5 mg PO QAM RF: 0 benazepril 10 mg tablet 10 mg PO QAM RF: 0 rosuvastatin 10 mg tablet 10 mg PO QAM RF: 0 Discharge Orders: Discharge ED (Routine); Ordered 07/21/21 Ordered By: Jay Jay Martines Referrals: Jean Claude Toth MD [Primary Care Provider] - Discharge Diet: Usual diet Discharge Activity: Limit activity as instructed Patient Instructions: Opioid Safety Coding Level of Care Code ED Internal Sales Engineer for Chg Fwd Exam Comprehensive
--- NOTE | 2021-07-21 09:57 | XRR_ITS ---
PROCEDURE INFORMATION: Exam: XR Chest Exam date and time: 07/21/2021 9:57 AM Age: 65 years old Clinical indication: Shortness of breath; Prior surgery; Surgery type: Pacemaker, port; Patient HX: History--weakness and SOB after pacemaker insertion. Feels a flutter in heart. ; Additional info: Dyspnea/cough TECHNIQUE: Imaging protocol: XR of the chest. Views: 1 view. COMPARISON: CT chest abd pel w con* 06/23/2020 12:10 PM FINDINGS: Tubes, catheters and devices: Pacemaker is present via a left subclavian approach. Chest port via the right subclavian approach with the tip projecting over the superior vena cava. Lungs: Question subtle airspace disease right lung base laterally. Mild atelectasis adjacent to the left heart border. Lungs are otherwise well aerated. Pleural spaces: Unremarkable. No pleural effusion. No pneumothorax. Heart/Mediastinum: Unremarkable. No cardiomegaly. Bones/joints: Prior surgical fixation of the caudal aspect of the cervical spine. XR/XR chest 1V portable [id number] IMPRESSION: Question subtle airspace disease right lung base laterally. Mild atelectasis adjacent to the left heart border. Lungs are otherwise well aerated.
--- NOTE | 2021-07-21 10:23 | PC.NURSE ---
Continual cardiac, BP, and SpO2 monitoring initiated upon arrival in room.
[2021-07-21 10:24] LABS: Basophils % 0.6 %; Eosinophils % 0.4 %; Hematocrit 40.1 % (42.0-52.0); Hemoglobin 13.8 g/dL (11.7-16.6); Lymphocytes # 0.6 10^3/uL (0.8-4.8); Lymphocytes % 11.7 %; Mean Corpuscular HGB Conc 34.4 g/dL (30.0-36.0); Mean Corpuscular Hemoglobin 29.7 pg (28.0-34.0); Mean Corpuscular Volume 86.4 fl (80-94); Mean Platelet Volume 8.6 fL (7.4-10.4); Monocytes # 0.4 10^3/uL (0.2-0.9); Monocytes % 7.1 %; Neutrophils # 4.17 10^3/uL (1.8-7.7); Nucleated Red Blood Cells % 0 %; Platelet Count 307 10^3/cmm (130-400); Red Blood Count 4.64 10^6/uL (4.1-5.3); Red Cell Distribution Width 12.2 % (12.1-15.1); White Blood Count 5.2 10^3/uL (4.0-10.0)
[2021-07-21 10:41] LABS: Troponin(5th) Baseline 11 ng/L (0-15)
[2021-07-21 11:09] LABS: Alanine Aminotransferase 23 U/L (0-41); Albumin Level 3.8 g/dL (3.5-5.2); Alkaline Phosphatase 98 IU/L (40-130); Anion Gap 20.4 (5-19); Aspartate Amino Transferase 21 U/L (0-40); Blood Urea Nitrogen 13 mg/dL (8-23); Carbon Dioxide 21 mmol/L (22-29); Chloride 98 mmol/L (98-107); Glomerular Filtration Rate 84.2 mL/min (90-130); Glucose 159 mg/dL (65-115); Magnesium 1.8 mg/dL (1.7-2.3); NT Pro B Type Natriuretic Pept 75 pg/mL (0-125); Osmolality Calculated 283 mOsm/kg (285-295); Potassium 4.4 mmol/L (3.5-5.1); Sodium 135 mmol/L (136-145); Total Bilirubin 0.5 mg/dL (0.15-1.2); Total Protein 6.8 g/dL (6.6-8.7)
[2021-07-21 11:52] LABS: Add Urine Microscopic? NO; Charge for UA Resulting for Rev
--- NOTE | 2021-07-21 11:58 | ECG_ITS ---
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 Measurements Intervals [place] Rate: 75 P: 112 ME: 196 QRS: 41 QRSD: 138 T: 57 QT: 407 QTc: 456 Interpretive Statements ELECTRONIC ATRIAL PACEMAKER ELECTRONIC VENTRICULAR PACEMAKER ABNORMAL RHYTHM ECG Compared to ECG 07/21/2021 09:47:51 No significant changes Electronically Signed On 07-22-2021 9:17:13 BOILER TESTER by Fernie Bueno M.D. [id number]
--- NOTE | 2021-07-21 12:00 | CT_ITS ---
WS: [id number] CT CHEST ANGIOGRAPHY WITH REFORMATS HISTORY: dyspnea TECHNIQUE: Contiguous axial images are obtained through the chest during arterial injection of intrav enous contrast. Images are reconstructed to evaluate the pulmonary arteries. MIP imaging also reviewe d. All CT scans at [facility] use at least one of these dose optimization techniques: automat ed exposure control; mA and/or kV adjustment per patient size (includes targeted exams where dose is matched to clinical indication); or iterative reconstruction. CONTRAST: Omnipaque 350; 95 mL IV. DLP: 4.8 COMPARISON: 06/23/2020 Excellent opacification of the pulmonary arteries. No filling defects. No pulmonary embolism. Normal size pulmonary artery. No RIGHT heart strain. Mild enlargement of the LEFT ventricle. No pericardial or pleural effusion. Bilateral multi lobar areas of pneumonitis and groundglass attenuation in the periphery of the upper and lower lung miguel. Greater distribution in the lower lung miguel. No pneumothorax. No significant adenopathy. Colostomy site is noted within the RIGHT abdomen. Moderate atherosclerosis in the visualized abdomina l aorta. No adrenal mass. Marked increase in thoracic kyphosis with advanced spondylitic changes. No osteoblastic or osteolytic bone disease. CT/CT angio chest PE protcl [id number] IMPRESSION: 1. No pulmonary embolism. 2. Multilobar groundglass opacifications and increasing consolidations. Consid er Covid 19. 3. No adenopathy.
[2021-07-21 12:06] LABS: Bilirubin Urine Neg (Negative); Blood Urine Neg (Negative); Glucose Urine UA Norm (Normal); Ketones Urine Negative (Negative); Leukocyte Esterase Urine Negative (Negative); Nitrate Urine Negative (Negative); Protein Urine Neg (Negative); Specific Gravity, Urine 1.005 (1.005-1.030); Urine Appearance Clear (CLEAR); Urine Color Yellow (Yellow); Urobilinogen Urine Norm (Negative); pH Urine 7 (5-7)
[2021-07-21 12:58] LABS: Troponin 5 2HR 10.51 ng/L (0-15)
[2021-07-21 13:04] LABS: Troponin 5 2HR Delta -0.49 ABS# (0-10)
[2021-07-21] MEDS: iohexol 350 mg/mL 100 mL Btl IV (13:49)
--- NOTE | 2021-07-21 15:58 | ECG_ITS ---
[facility] Test Date: 2021-07-21 Pat Name: Pramod Domínguez Department: Room: Gender: Male Xerox Machine Mechanic: : 1955 Requested By: Jay Jay Guido Order Number: [id number] Kentrell MD: Fernie Bueno M.D. Measurements Intervals [place] Rate: 69 P: 219 CO: 208 QRS: 222 QRSD: 129 T: 38 QT: 417 QTc: 449 Interpretive Statements ELECTRONIC ATRIAL PACEMAKER ELECTRONIC VENTRICULAR PACEMAKER Compared to ECG 07/21/2021 12:26:18 No significant changes Electronically Signed On 07-22-2021 9:16:45 FLOWER CUTTER by Fernie Bueno M.D. [id number]
[2021-07-21 16:35] VITALS: BP 114/73; PULSE 72; RESP 20; O2SAT 96
--- NOTE | 2021-07-21 16:35 | PC.NURSE ---
See scanned vitals reports for complete vital signs.
[2021-07-21 16:39] LABS: Troponin 5 6HR 10.26 ng/L (0-15)
[2021-07-21 16:42] LABS: Troponin 5 6HR Delta -0.74 ng/L (0-12)
== END 2021-07-21 16:30 | disposition home or self-care (01) ==
PROVIDERS: Emergency Provider Family Medicine; PCP Family Medicine
DX: U07.1 COVID-19 (principal); Z79.82 Long term (current) use of aspirin; I10 Essential (primary) hypertension; I25.2 Old myocardial infarction; Z95.0 Presence of cardiac pacemaker; Z85.048 Personal history of other malignant neoplasm of rectum, rectosigmoid junction, and anus
CPT/HCPCS: 71045; 71275; 80053; 81003; 83735; 83880; 84484; 85025; 93005; 99284; Q9967

== ENCOUNTER 2021-07-27 12:04 | Outpatient (CLI) | payer MEDICARE, SELFPAY ==
[2021-07-27 12:50] LABS: Basophils # 0.1 10^3/uL (0.0-0.1); Basophils % 1.3 %; Eosinophils # 0.3 10^3/uL (0.0-0.8); Eosinophils % 5.4 %; Hematocrit 38.4 % (42.0-52.0); Hemoglobin 12.8 g/dL (11.7-16.6); Lymphocytes # 0.6 10^3/uL (0.8-4.8); Lymphocytes % 12.6 %; Mean Corpuscular HGB Conc 33.3 g/dL (30.0-36.0); Mean Corpuscular Hemoglobin 29.6 pg (28.0-34.0); Mean Corpuscular Volume 88.7 fl (80-94); Monocytes # 0.4 10^3/uL (0.2-0.9); Monocytes % 9.1 %; Neutrophils % 71.4 %; Nucleated Red Blood Cells % 0 %; Platelet Count 245 10^3/cmm (130-400); Red Blood Count 4.33 10^6/uL (4.1-5.3); Red Cell Distribution Width 12.5 % (12.1-15.1); White Blood Count 4.6 10^3/uL (4.0-10.0)
[2021-07-27 13:08] LABS: Alanine Aminotransferase 17 U/L (0-41); Albumin Level 3.8 g/dL (3.5-5.2); Alkaline Phosphatase 67 IU/L (40-130); Anion Gap 14.2 (5-19); Aspartate Amino Transferase 18 U/L (0-40); Blood Urea Nitrogen 9 mg/dL (8-23); Calcium 8.6 mg/dL (8.5-10.5); Carbon Dioxide 25 mmol/L (22-29); Chloride 105 mmol/L (98-107); Glomerular Filtration Rate 96.4 mL/min (90-130); Glucose 117 mg/dL (65-115); Osmolality Calculated 290 mOsm/kg (285-295); Potassium 4.2 mmol/L (3.5-5.1); Sodium 140 mmol/L (136-145); Total Bilirubin 0.4 mg/dL (0.15-1.2); Total Protein 6.8 g/dL (6.6-8.7)
== END 2021-07-27 12:05 | disposition home or self-care (01) ==
LOC: ONCMED 12:06
PROVIDERS: PCP Family Medicine; Visit Provider Internal Medicine Hematology & Oncology
DX: C20 Malignant neoplasm of rectum (principal)
CPT/HCPCS: 36591; 80053; 85025

== ENCOUNTER 2021-09-30 12:58 | Outpatient (CLI) | payer MEDICARE, SELFPAY ==
[2021-09-30 13:30] LABS: Basophils % 0.8 %; Eosinophils # 0.4 10^3/uL (0.0-0.8); Eosinophils % 7.3 %; Hemoglobin 12.2 g/dL (11.7-16.6); Lymphocytes # 0.9 10^3/uL (0.8-4.8); Lymphocytes % 17.1 %; Mean Corpuscular Volume 91.1 fl (80-94); Mean Platelet Volume 9.3 fL (7.4-10.4); Monocytes # 0.5 10^3/uL (0.2-0.9); Monocytes % 10.2 %; Neutrophils # 3.42 10^3/uL (1.8-7.7); Neutrophils % 64.4 %; Nucleated Red Blood Cells % 0 %; Platelet Count 231 10^3/cmm (130-400); Red Blood Count 4.06 10^6/uL (4.1-5.3); Red Cell Distribution Width 13.4 % (12.1-15.1); White Blood Count 5.3 10^3/uL (4.0-10.0)
[2021-09-30 14:09] LABS: Alanine Aminotransferase 12 U/L (0-41); Albumin Level 4.3 g/dL (3.5-5.2); Alkaline Phosphatase 65 IU/L (40-130); Anion Gap 16.5 (5-19); Aspartate Amino Transferase 22 U/L (0-40); Blood Urea Nitrogen 18 mg/dL (8-23); Calcium 9.7 mg/dL (8.5-10.5); Carbon Dioxide 25 mmol/L (22-29); Chloride 102 mmol/L (98-107); Globulin 2.8 g/dL (1.3-4.6); Glomerular Filtration Rate 83.9 mL/min (90-130); Glucose 120 mg/dL (65-115); Osmolality Calculated 291 mOsm/kg (285-295); Potassium 4.5 mmol/L (3.5-5.1); Sodium 139 mmol/L (136-145); Total Bilirubin 0.4 mg/dL (0.15-1.2); Total Protein 7.1 g/dL (6.6-8.7)
--- NOTE | 2021-10-01 10:11 | ONC FU_ITS ---
Dr. Bundy follow up note Patient: Pramod Domínguez Unit #: [id number]: 1955 Dicatated By: Adelina Bundy M.D.Date of Visit:Sep 30, 2021 Onc Med Follow-up/Prog Note History of Present Illness: Mr. Domínguez is a 66-year-old gentleman with 3 month history of change in bowel habits. He underwent a colonoscopy on June 23, 2020 which showed circumferential malignant appearing mass at 8 cm. The pathology report confirmed invasive adenocarcinoma, moderately differentiated. A CEA checked on June 23, 2020 was 2.0. Mr Domínguez underwent CT scan of chest abdomen pelvis on June 23, 2020 which showed rectal mucosal thickening consistent with rectal mass; no lymphadenopathy and no metastatic disease to liver. Mr Domínguez was referred to Dr. Grover in [facility]. Dr Grover's impression was tumors likely at least T3 and MRI scan of pelvis was suggested but not done because of patient has pacemaker. Preop chemoradiation was recommended to downstage the tumor. Patient has no family history of colon cancer Patient has history of rheumatic fever at age 8 but no long-term cardiac complication. Status post pacemaker for AV block. Patient denies smoking or alcohol use. Started on combined chemoradiation with oral Xeloda on on July 28, 2020. His Xeloda was placed on hold for diarrhea and hand foot syndrome on August 10, 2020 and then his dose was reduced to 1500 mg twice daily with radiation at his followup on 08/17/2020. He was able to complete chemoradiation with the Xeloda at 1500 mg twice daily. He completed radiation therapy September 01, 2020 Mr Domínguez underwent robotic assisted sigmoid colon and upper rectum, extended low anterior resection and loop ileostomy for rectal cancer on October 27, 2020 and final pathology report came back moderately differentiated adenocarcinoma, carcinoma extends through muscularis propria and into pericolonic fat, clear surgical margins, no tumor perforation, treatment effect present, residual cancer and evidence of tumor regression, partial response. No lymphovascular invasion seen, ypT3, 1 out of 31 lymph node is positive ypN1. Mr. Murry was encouraged to pursue adjuvant chemotherapy. He was given a choice between 3 cycles of CAPOX or 6 months of FOLFOX. Mr. España has been elected to pursue adjuvant FOLFOX X6-8 cycles. He began his 1st cycle on December 30, 2020.And completed 8 cycles on 04/19/2021, Subsequently underwent colostomy reversal in July 2021. Came for follow-up, denies any specific complaints, no fever chills, no nausea or vomiting, no diarrhea or constipation, no hemoptysis hematemesis, no jaundice, overall feeling well. As per patient he is scheduled for follow-up colonoscopy next week with Dr. Grover in [place]. Medications: Aspirin 1 Tablet (of 81 mg) Tablet, enteric coated Oral daily, B Complex 1 Tablet Oral daily, Benazepril HCl 1 Tablet (of 10 mg) Oral daily, Carvedilol 1 Tablet (of 6.25 mg) Oral b.i.d., Cholecalciferol 1 Tablet (of 100 mcg ) Oral daily, Cholecalciferol 1 Capsule (of 25 mcg ) Oral daily, Crestor 1 Tablet (of 10 mg) Oral daily, hydroCHLOROthiazide 0.5 Tablet (of 25 mg) Oral daily, Naproxen 1 Tablet (of 500 mg) Oral b.i.d., traMADol HCl 1 Tablet (of 50 mg) Oral four times a day Allergies: Erythromycin Base and Morphine Derivatives. Review of Systems: Review of Systems is not available for this patient. Vital Signs: Performed on Sep 30, 2021 14:32 Height - 72.00 in Weight - 197.4 lbs (LOW) BSA - 2.12 sq.m BMI - 26.77 Temperature - 97.2 F (LOW) Pulse - 85 /min Respiration - 18 /min BP - 107/64 mm(hg) O2 Sat - 97 % Pain - 0 Fatigue - 0 Performance Status: 0 - Fully active, able to carry on all predisease activities without restrictions. (ECOG) Physical Examination: ENMT - No mouth sores, no thrush, no jaundice, Respiratory - Lungs are clear to auscultation, Cardiovascular - Regular rate and rhythm of heart, Abdomen - Soft, bowel sounds present, Extremities - No visible edema. Lab/Imaging: Most recent lab results are not available for this patient. Impression: moderately differentiated, invasive adenocarcinoma involving rectum per colonoscopy done on June 23, 2020 CT scan of chest abdomen pelvis done on June 23, 2020 showed no evidence of metastatic disease and rectal mucosal thickening consistent with rectal mass Clinically T2 versus T3, NX, MX Status post pacemaker History of rheumatic fever at age 8 with no long-term cardiac complication Started on combined chemoradiation with oral Xeloda 1800 mg p.o. twice daily 5 days a week on July 28, 2020, dose was reduced to 1500 mg p.o. twice daily 5 days a week on August 13, 2020 because of grade 1 hand-foot syndrome and diarrhea. Mr. Domínguez completed chemoradiation on September 01, 2020. And underwent robotic assisted LAR with loop ileostomy on October 27, 2020 and final pathology report showed moderately differentiated adenocarcinoma, carcinoma extends through muscularis propria and into pericolonic fat, treatment effect was present, no lymphovascular invasion seen, clear surgical margins, ypT3 and 1 out of 31 lymph node positive for metastatic disease, ypN1, Stage ypIII, Subsequently underwent adjuvant therapy with FOLFOX x8, completed on April 19, 2021, followed by colostomy reversal in July 2021. Plan: Discussed with patient regarding his labs white blood count five-point hemoglobin 12.2 hematocrit 37 platelets 231,000 CMP within normal limits Clinically, patient doing well with no new signs symptoms history of recurrence of disease his blood count is within normal range, will continue to monitor and he will return to clinic in 3 months with CBC CMP and CEA in the meantime continue with monthly port maintenance. Moreover, patient is scheduled for follow-up colonoscopy in a week with Dr. Grover in [place], will follow with reports. Signed By: Adelina Bundy M.D. <<Signature on File>>
== END 2021-09-30 12:59 | disposition home or self-care (01) ==
PROVIDERS: PCP Family Medicine; Visit Provider Internal Medicine Hematology & Oncology
DX: Z08 Encounter for follow-up examination after completed treatment for malignant neoplasm (principal); Z85.048 Personal history of other malignant neoplasm of rectum, rectosigmoid junction, and anus; Z95.0 Presence of cardiac pacemaker; Z86.19 Personal history of other infectious and parasitic diseases; Z92.21 Personal history of antineoplastic chemotherapy; Z92.3 Personal history of irradiation; Z79.899 Other long term (current) drug therapy
CPT/HCPCS: 36591; 80053; 85025; 99215

== ENCOUNTER → 2021-10-26 15:07 | Outpatient (BNVA) | payer MEDICARE, SELFPAY | PROVIDERS: PCP Family Medicine; Visit Provider Internal Medicine Cardiovascular Disease | DX: I42.8 Other cardiomyopathies (principal); I10 Essential (primary) hypertension; E78.5 Hyperlipidemia, unspecified | CPT/HCPCS: 99214 ==

== ENCOUNTER 2021-11-01 13:51 | Outpatient (CLI) | payer MEDICARE, SELFPAY | END 2021-11-01 13:52 | disposition home or self-care (01) | LOC: ONCMED 13:55 | PROVIDERS: PCP Family Medicine; Visit Provider Internal Medicine Hematology & Oncology | DX: Z45.2 Encounter for adjustment and management of vascular access device (principal) | CPT/HCPCS: 96523 ==

== ENCOUNTER → 2021-11-05 09:59 | Outpatient (BNVA) | payer MEDICARE, SELFPAY | PROVIDERS: PCP Family Medicine; Visit Provider Internal Medicine Cardiovascular Disease | DX: Z95.810 Presence of automatic (implantable) cardiac defibrillator (principal) | CPT/HCPCS: 93284 ==

== ENCOUNTER 2021-12-03 10:55 | Oncology outpatient (recurring) (ONCR) | payer MEDICARE, SELFPAY ==
[2021-12-03 11:05] VITALS: BP 113/70; PULSE 71; RESP 18; TEMP 36.4; O2SAT 99
== END 2021-12-28 23:59 | disposition home or self-care (01) ==
PROVIDERS: PCP Family Medicine; Visit Provider Internal Medicine Hematology & Oncology
DX: C20 Malignant neoplasm of rectum (principal)
CPT/HCPCS: 96523

== ENCOUNTER 2022-01-05 11:47 | Oncology outpatient (recurring) (ONCR) | payer MEDICARE, SELFPAY ==
[2022-01-05 11:59] VITALS: BP 104/69; PULSE 69; RESP 16; TEMP 35.9; O2SAT 96
== END 2022-01-27 23:59 | disposition home or self-care (01) ==
LOC: ONCMED 11:48
PROVIDERS: PCP Family Medicine; Visit Provider Internal Medicine Hematology & Oncology
DX: C20 Malignant neoplasm of rectum (principal)
CPT/HCPCS: 96523

== ENCOUNTER 2022-02-02 09:05 | Oncology outpatient (recurring) (ONCR) | payer MEDICARE, SELFPAY ==
[2022-02-02 10:41] LABS: Basophils % 0.9 %; Eosinophils # 0.3 10^3/uL (0.0-0.8); Eosinophils % 6.9 %; Hematocrit 37.4 % (42.0-52.0); Hemoglobin 12.1 g/dL (11.7-16.6); Lymphocytes # 0.8 10^3/uL (0.8-4.8); Lymphocytes % 17.7 %; Mean Corpuscular HGB Conc 32.4 g/dL (30.0-36.0); Mean Corpuscular Hemoglobin 29.2 pg (28.0-34.0); Mean Corpuscular Volume 90.1 fl (80-94); Mean Platelet Volume 10.1 fL (7.4-10.4); Monocytes # 0.4 10^3/uL (0.2-0.9); Monocytes % 8.3 %; Neutrophils # 2.89 10^3/uL (1.8-7.7); Neutrophils % 66.2 %; Nucleated Red Blood Cells % 0 %; Platelet Count 184 10^3/cmm (130-400); Red Blood Count 4.15 10^6/uL (4.1-5.3); Red Cell Distribution Width 12.7 % (12.1-15.1); White Blood Count 4.4 10^3/uL (4.0-10.0)
[2022-02-02 10:50] LABS: Carcinoembryonic Antigen 1.2 ng/mL (0.0-4.7)
[2022-02-02 11:01] LABS: Alanine Aminotransferase 11 U/L (0-41); Alkaline Phosphatase 59 IU/L (40-130); Aspartate Amino Transferase 18 U/L (0-40); Blood Urea Nitrogen 13 mg/dL (8-23); Calcium 8.7 mg/dL (8.5-10.5); Carbon Dioxide 26 mmol/L (22-29); Chloride 103 mmol/L (98-107); Globulin 2.5 g/dL (1.3-4.6); Glomerular Filtration Rate 83.9 mL/min (90-130); Glucose 116 mg/dL (65-115); Osmolality Calculated 289 mOsm/kg (285-295); Sodium 139 mmol/L (136-145); Total Bilirubin 0.4 mg/dL (0.15-1.2); Total Protein 6.5 g/dL (6.6-8.7)
[2022-02-02 11:03] LABS: Anion Gap 14.4 (5-19); Potassium 4.4 mmol/L (3.5-5.1)
== END 2022-02-27 23:59 | disposition home or self-care (01) ==
PROVIDERS: PCP Family Medicine; Visit Provider Internal Medicine Hematology & Oncology
DX: C20 Malignant neoplasm of rectum (principal); I42.8 Other cardiomyopathies; I10 Essential (primary) hypertension
CPT/HCPCS: 36591; 80053; 82378; 85025; 99214

== ENCOUNTER 2022-03-04 10:13 | Oncology outpatient (recurring) (ONCR) | payer MEDICARE, SELFPAY | END 2022-03-30 23:59 | disposition home or self-care (01) | PROVIDERS: PCP Family Medicine; Visit Provider Internal Medicine Hematology & Oncology | DX: Z45.2 Encounter for adjustment and management of vascular access device (principal) | CPT/HCPCS: 96523 ==

== ENCOUNTER 2022-04-12 10:22 | Oncology outpatient (recurring) (ONCR) | payer MEDICARE, SELFPAY | END 2022-04-29 23:59 | disposition home or self-care (01) | PROVIDERS: PCP Family Medicine; Visit Provider Internal Medicine Hematology & Oncology | DX: Z45.2 Encounter for adjustment and management of vascular access device (principal) | CPT/HCPCS: 96523 ==

== ENCOUNTER → 2022-04-27 14:23 | Outpatient (BNVA) | payer MEDICARE, SELFPAY | PROVIDERS: PCP Family Medicine; Visit Provider Internal Medicine Cardiovascular Disease | DX: I42.8 Other cardiomyopathies (principal); Z95.810 Presence of automatic (implantable) cardiac defibrillator; I10 Essential (primary) hypertension; E78.5 Hyperlipidemia, unspecified | CPT/HCPCS: 93284; 99214 ==

== ENCOUNTER 2022-05-06 10:38 | Oncology outpatient (recurring) (ONCR) | payer MEDICARE, SELFPAY | END 2022-05-30 23:59 | disposition home or self-care (01) | PROVIDERS: PCP Family Medicine; Visit Provider Internal Medicine Hematology & Oncology | DX: Z45.2 Encounter for adjustment and management of vascular access device (principal) | CPT/HCPCS: 96523 ==

== ENCOUNTER 2022-06-09 11:05 | Oncology outpatient (recurring) (ONCR) | payer MEDICARE, SELFPAY ==
[2022-06-09 11:38] LABS: Basophils % 0.4 %; Eosinophils # 0.3 10^3/uL (0.0-0.8); Eosinophils % 5.4 %; Hematocrit 40.7 % (42.0-52.0); Hemoglobin 13.2 g/dL (11.7-16.6); Lymphocytes # 1.1 10^3/uL (0.8-4.8); Lymphocytes % 21.7 %; Mean Corpuscular HGB Conc 32.4 g/dL (30.0-36.0); Mean Corpuscular Hemoglobin 29.4 pg (28.0-34.0); Mean Corpuscular Volume 90.6 fl (80-94); Mean Platelet Volume 9.6 fL (7.4-10.4); Monocytes # 0.4 10^3/uL (0.2-0.9); Neutrophils # 3.18 10^3/uL (1.8-7.7); Neutrophils % 64.1 %; Nucleated Red Blood Cells % 0 %; Platelet Count 202 10^3/cmm (130-400); Red Blood Count 4.49 10^6/uL (4.1-5.3); Red Cell Distribution Width 12.5 % (12.1-15.1)
[2022-06-09 12:10] LABS: Carcinoembryonic Antigen 0.9 ng/mL (0.0-4.7)
[2022-06-09 12:21] LABS: Alanine Aminotransferase 12 U/L (0-41); Albumin Level 4.3 g/dL (3.5-5.2); Alkaline Phosphatase 55 U/L (40-130); Anion Gap 12.1 (5-19); Aspartate Amino Transferase 15 U/L (0-40); Blood Urea Nitrogen 20 mg/dL (8-23); Calcium 9.3 mg/dL (8.5-10.5); Carbon Dioxide 27 mmol/L (22-29); Chloride 101 mmol/L (98-107); Globulin 2.7 g/dL (1.3-4.6); Glomerular Filtration Rate 74.3 mL/min (90-130); Glucose 90 mg/dL (65-115); Osmolality Calculated 284 mOsm/kg (285-295); Potassium 4.1 mmol/L (3.5-5.1); Sodium 136 mmol/L (136-145); Total Bilirubin 0.4 mg/dL (0.15-1.2)
== END 2022-06-29 23:59 | disposition home or self-care (01) ==
PROVIDERS: PCP Family Medicine; Visit Provider Internal Medicine Hematology & Oncology
DX: Z08 Encounter for follow-up examination after completed treatment for malignant neoplasm (principal); Z85.048 Personal history of other malignant neoplasm of rectum, rectosigmoid junction, and anus; Z92.21 Personal history of antineoplastic chemotherapy; Z92.3 Personal history of irradiation; Z90.49 Acquired absence of other specified parts of digestive tract
CPT/HCPCS: 36591; 80053; 82378; 85025; 99213; 99214

== ENCOUNTER → 2022-06-16 08:31 | Outpatient (BNVA) | payer MEDICARE, SELFPAY | PROVIDERS: PCP Family Medicine; Visit Provider Family Medicine | DX: C20 Malignant neoplasm of rectum (principal); R35.1 Nocturia; E78.5 Hyperlipidemia, unspecified | CPT/HCPCS: 80061; 84153; 86140 ==

== ENCOUNTER 2022-06-27 13:05 | Outpatient (CLI) | payer MEDICARE, SELFPAY ==
[2022-06-27] MEDS: iohexol 350 mg/mL 100 mL Btl PO (14:51)
[2022-06-27] MEDS: iohexol 350 mg/mL 100 mL Btl IV (14:56)
--- NOTE | 2022-06-27 17:00 | CT_ITS ---
WS: [id number] CT CHEST, ABDOMEN AND PELVIS WITH CONTRAST HISTORY: rectal cancer TECHNIQUE: Contiguous 5 mm axial imaging performed through the chest, abdomen and pelvis with IV cont rast, oral contrast has been provided. Coronal and sagittal reformats chest. Coronal and sagittal ref ormats through the abdomen and pelvis. All CT scans at [facility] use at least one of these d ose optimization techniques: automated exposure control; mA and/or kV adjustment per patient size (in cludes targeted exams where dose is matched to clinical indication); or iterative reconstruction. CONTRAST: Omnipaque 350; 95 mL IV. DLP: 1837.91 mGy.cm COMPARISON: 06/19/2020 and 07/19/[address]: Mild pulmonary hyperinflation. No pulmonary mass or nodule. No pneumonia. Previously descri bed groundglass opacifications on 07/21/2021 have resolved. No pericardial or pleural effusions. Dual lead LEFT subclavian pacer. Normal size pulmonary artery. Atherosclerosis aorta. No mediastinal or h ilar adenopathy. Right-sided Mediport. Abdomen CT: Normal size liver with no metastatic disease. Normal portal vein and gallbladder. Normal pancreas and spleen. No bile duct dilatation. No adrenal mass. No renal obstruction. Bilateral cortic al hypodensities are most likely cysts. No interval change since the prior study. Mild atherosclerosi s aorta. No ascites or adenopathy. Good distention of the stomach with contrast. No small bowel obstruction. Normal appendix. Previously described rectal wall thickening is no longer present. There are postsurgical clips at the rectum. N o ascites or lymphadenopathy. Mesorectal fat is normal. No inguinal lymph nodes. Pelvic CT: No ascites or adenopathy. Posterior lumbar fusion from L4 to S1. L5 anterolisthesis by 6 mm. Advanced degenerative disc disease throughout the lumbar spine. Increase in thoracic kyphosis with disc space narrowing. No destructive bone lesions. CT/CT chest abd pel w con* IMPRESSION: 1. No metastatic nodules or masses within the lungs. No metastatic disease to the liver or adrenal glands. 2. No lymphadenopathy within the chest, abdomen or pelvis. 3. Postsurgical clips at the rectum with no recurrent mass or adjacent lymph n odes. 4. No ascites.
== END 2022-06-27 13:06 | disposition home or self-care (01) ==
LOC: RAD 13:06
PROVIDERS: PCP Family Medicine; Visit Provider Internal Medicine Hematology & Oncology
DX: C20 Malignant neoplasm of rectum (principal)
CPT/HCPCS: 71260; 74177; Q9967

== ENCOUNTER 2022-07-15 08:04 | Oncology outpatient (recurring) (ONCR) | payer MEDICARE, SELFPAY ==
[2022-07-15 08:54] LABS: Alanine Aminotransferase 12 U/L (0-41); Albumin Level 4.3 g/dL (3.5-5.2); Alkaline Phosphatase 56 U/L (40-130); Anion Gap 11.9 (5-19); Aspartate Amino Transferase 15 U/L (0-40); Blood Urea Nitrogen 19 mg/dL (8-23); Calcium 9.5 mg/dL (8.5-10.5); Carbon Dioxide 28 mmol/L (22-29); Chloride 103 mmol/L (98-107); Globulin 2.3 g/dL (1.3-4.6); Glomerular Filtration Rate 83.9 mL/min (90-130); Glucose 120 mg/dL (65-115); Osmolality Calculated 291 mOsm/kg (285-295); Potassium 3.9 mmol/L (3.5-5.1); Sodium 139 mmol/L (136-145); Total Bilirubin 0.4 mg/dL (0.15-1.2); Total Protein 6.6 g/dL (6.6-8.7)
== END 2022-07-30 23:59 | disposition home or self-care (01) ==
PROVIDERS: PCP Family Medicine; Visit Provider Internal Medicine Hematology & Oncology
DX: Z08 Encounter for follow-up examination after completed treatment for malignant neoplasm (principal); Z85.048 Personal history of other malignant neoplasm of rectum, rectosigmoid junction, and anus; Z90.49 Acquired absence of other specified parts of digestive tract; Z92.21 Personal history of antineoplastic chemotherapy; Z92.3 Personal history of irradiation; R73.9 Hyperglycemia, unspecified
CPT/HCPCS: 36591; 80053; 99214

== ENCOUNTER → 2022-08-03 13:48 | Outpatient (BNVA) | payer MEDICARE, SELFPAY | PROVIDERS: PCP Family Medicine; Visit Provider Surgery | DX: Z95.828 Presence of other vascular implants and grafts (principal) | CPT/HCPCS: 99213 ==

== ENCOUNTER 2022-08-22 09:56 | Day surgery (SDC) | payer MEDICARE, SELFPAY ==
[2022-08-19 13:22] VITALS: BMI 28.5
[2022-08-22 10:13] VITALS: BP 125/78; PULSE 69; RESP 16; TEMP 36.6; O2SAT 98
[2022-08-22] MEDS: sodium chloride 0.9% 1,000 ML 30 ML IV (10:34)
--- NOTE | 2022-08-22 10:52 | PM.OP ---
Operative Report Date of procedure: August 22, 2022 Pre-op diagnosis: Preop Diagnosis Mediport in place Post-op diagnosis: same Procedure done: Mediport removal Specimens removed/disposition: Mediport Surgeon: Dr. Regis Mathur DO Anesthesia: Local Estimated blood loss (mL): 5 Complications: None apparent Brief History: This is a very pleasant 66-year-old gentleman with rectal cancer who no longer needs a Mediport for chemotherapy. He is getting oral chemotherapy. The risk benefits of Mediport removal were explained and documented. Procedure: Lidocaine withPatient was wheeled in the OR room placed on the OR table in supine position. The left chest was inspected prepped and draped in usual sterile fashion. A timeout was performed all present were in agreement. An effort was used to localize the skin over the previous incision. The previous incision was then opened up with a 15 blade scalpel. Hemostats were used to grasp the Mediport. Suture scissors were used to cut the Vicryl sutures. While holding pressure over the left subclavian vein the Mediport was removed from its tunnel. The tunnel was then closed with 3-0 Vicryl in a [id number] fashion. He was a cyst was noted. Dermis was closed with 3-0 Vicryl in an interrupted fashion. Skin was closed with Dermabond. Patient tolerated procedure well.
--- NOTE | 2022-08-22 12:10 | W.PM.OPSUD ---
Surgery/Procedure H&P Update DATE OF PROCEDURE: August 22, 2022 DATE H&P PERFORMED: 08/03/22 PREOP DIAGNOSIS: Mediport in place PLANNED PROCEDURE: Operation Date: 08/22/22 12:00 Proposed Procedures p port removal [id number] ,[id number](Not Applicable) - Regis Mathur DO
[2022-08-22 12:48] VITALS: BP 113/76; PULSE 60; RESP 16; O2SAT 100
[2022-08-22 12:53] VITALS: BP 123/83; PULSE 70; RESP 14; O2SAT 100
[2022-08-22 12:58] VITALS: BP 105/76; PULSE 66; RESP 12; O2SAT 99
== END 2022-08-22 13:34 | disposition home or self-care (01) ==
PROVIDERS: PCP Family Medicine; Visit Provider Surgery
PROC: (CPT 36589; principal; 2022-08-22 11:50)
DX: Z45.2 Encounter for adjustment and management of vascular access device (principal); Z79.82 Long term (current) use of aspirin; E78.5 Hyperlipidemia, unspecified; I10 Essential (primary) hypertension; I25.2 Old myocardial infarction; Z85.46 Personal history of malignant neoplasm of prostate
CPT/HCPCS: 36590; J7030

== ENCOUNTER 2022-10-14 08:27 | Oncology outpatient (recurring) (ONCR) | payer MEDICARE, SELFPAY ==
[2022-10-14 09:26] LABS: Basophils % 0.4 %; Eosinophils # 0.3 10^3/uL (0.0-0.8); Eosinophils % 5.2 %; Hematocrit 42.2 % (42.0-52.0); Hemoglobin 13.9 g/dL (11.7-16.6); Lymphocytes # 1.1 10^3/uL (0.8-4.8); Lymphocytes % 20.4 %; Mean Corpuscular HGB Conc 32.9 g/dL (30.0-36.0); Mean Corpuscular Hemoglobin 29.9 pg (28.0-34.0); Mean Corpuscular Volume 90.8 fl (80-94); Mean Platelet Volume 9.6 fL (7.4-10.4); Monocytes # 0.6 10^3/uL (0.2-0.9); Monocytes % 10.9 %; Neutrophils # 3.23 10^3/uL (1.8-7.7); Neutrophils % 62.7 %; Nucleated Red Blood Cells % 0 %; Platelet Count 199 10^3/cmm (130-400); Red Blood Count 4.65 10^6/uL (4.1-5.3); Red Cell Distribution Width 12.2 % (12.1-15.1); White Blood Count 5.2 10^3/uL (4.0-10.0)
[2022-10-14 09:54] LABS: Carcinoembryonic Antigen 1.3 ng/mL (0.0-4.7)
[2022-10-14 10:05] LABS: Alanine Aminotransferase 15 U/L (0-41); Albumin Level 4.3 g/dL (3.5-5.2); Alkaline Phosphatase 52 U/L (40-130); Anion Gap 15.1 (5-19); Aspartate Amino Transferase 18 U/L (0-40); Blood Urea Nitrogen 25 mg/dL (8-23); Calcium 9.5 mg/dL (8.5-10.5); Carbon Dioxide 27 mmol/L (22-29); Chloride 101 mmol/L (98-107); Globulin 2.9 g/dL (1.3-4.6); Glomerular Filtration Rate 74.1 mL/min (90-130); Glucose 112 mg/dL (65-115); Osmolality Calculated 291 mOsm/kg (285-295); Potassium 5.1 mmol/L (3.5-5.1); Sodium 138 mmol/L (136-145); Total Bilirubin 0.5 mg/dL (0.15-1.2); Total Protein 7.2 g/dL (6.6-8.7)
== END 2022-10-28 23:59 | disposition home or self-care (01) ==
PROVIDERS: PCP Family Medicine; Visit Provider Internal Medicine Hematology & Oncology
DX: Z08 Encounter for follow-up examination after completed treatment for malignant neoplasm (principal); Z85.048 Personal history of other malignant neoplasm of rectum, rectosigmoid junction, and anus; Z90.49 Acquired absence of other specified parts of digestive tract; Z92.21 Personal history of antineoplastic chemotherapy; Z92.3 Personal history of irradiation
CPT/HCPCS: 36415; 80053; 82378; 85025; 99214

== ENCOUNTER → 2022-12-09 10:43 | Outpatient (BNVA) | payer MEDICARE, SELFPAY | PROVIDERS: PCP Family Medicine; Visit Provider Nurse Practitioner Family | DX: I42.8 Other cardiomyopathies (principal); Z95.810 Presence of automatic (implantable) cardiac defibrillator | CPT/HCPCS: 99213 ==

== ENCOUNTER 2023-04-12 09:03 | Outpatient (CLI) | payer MEDICARE, SELFPAY ==
--- NOTE | 2023-04-12 09:11 | CT_ITS ---
WS: [id number] CT CHEST, ABDOMEN AND PELVIS WITH CONTRAST HISTORY: follow up history of colorectal cancer. TECHNIQUE: Contiguous 5 mm axial imaging performed through the chest, abdomen and pelvis with IV cont rast, oral contrast has been provided. Coronal and sagittal reformats chest. Coronal and sagittal ref ormats through the abdomen and pelvis. All CT scans at [facility] use at least one of these d ose optimization techniques: automated exposure control; mA and/or kV adjustment per patient size (in cludes targeted exams where dose is matched to clinical indication); or iterative reconstruction. CONTRAST: Omnipaque 350; 100 mL IV. DLP: 1271.86 mGy.cm COMPARISON: 06/27/[address]: Mild pulmonary hyperinflation. No mass or nodules. No mediastinal or hilar adenopathy. LEFT subclavian defibrillator/pacer. Mild atherosclerosis aorta. Normal size heart. Small hiatal hernia. Abdomen CT: Liver and spleen are normal. Normal gallbladder. Normal portal vein. Normal pancreas and adrenal glands. Bilateral low-attenuation masses within each kidney are probably cysts. These are unc hanged since the prior study. No hydronephrosis. Mild atherosclerosis aorta. Stomach is well distended. No small bowel obstruction. Mild constipation and fecal retention. Rectal anastomotic sutures are reidentified. No recurrent mass. No adjacent adenopathy or ascites. No omenta l disease. There are few very tiny central mesenteric lymph nodes. No retroperitoneal adenopathy. Pelvic CT: No free fluid or adenopathy. Increase in thoracic kyphosis. Moderate degenerative disc disease and spondylitic changes in the thor acic and lumbar spines. Posterior lumbar fusion from L4-S1. IMPRESSION: 1. Stable rectal anastomosis. No recurrent mass or adenopathy. 2. No metastatic disease within the lungs, adrenal glands or liver. 3. No adenopathy within the chest, abdomen or pelvis. 4. Mild atherosclerosis aorta. 5. Bilateral renal cysts.
[2023-04-12] MEDS: iohexol 350 mg/mL 500 mL Btl (per mL) PO (10:25)
[2023-04-12 11:07] LABS: Blood Urea Nitrogen 18 mg/dL (8-23); Glomerular Filtration Rate 66.4 mL/min (90-130)
[2023-04-12] MEDS: iohexol 350 mg/mL 500 mL Btl (per mL) IV (11:15)
== END 2023-04-12 09:04 | disposition home or self-care (01) ==
PROVIDERS: Internal Medicine Medical Oncology; PCP Family Medicine; Visit Provider Internal Medicine Hematology & Oncology
DX: C20 Malignant neoplasm of rectum (principal); Z98.0 Intestinal bypass and anastomosis status; I70.0 Atherosclerosis of aorta; N28.1 Cyst of kidney, acquired
CPT/HCPCS: 71260; 74177; 82565; 84520; 99214; Q9967

== ENCOUNTER 2023-04-14 07:46 | Oncology outpatient (recurring) (ONCR) | payer MEDICARE, SELFPAY ==
[2023-04-14 07:50] VITALS: BMI 29.7
[2023-04-14 07:52] VITALS: BP 108/64; PULSE 70; RESP 18; TEMP 36.3; O2SAT 95
[2023-04-14 08:12] LABS: Basophils # 0.1 10^3/uL (0.0-0.1); Basophils % 1.1 %; Eosinophils # 0.4 10^3/uL (0.0-0.8); Eosinophils % 9.1 %; Hematocrit 39.4 % (37-53); Lymphocytes # 0.9 10^3/uL (0.8-4.8); Mean Corpuscular HGB Conc 32.5 g/dL (30-55); Mean Corpuscular Hemoglobin 29.7 pg (27-33); Mean Corpuscular Volume 91.4 fl (82-101); Mean Platelet Volume 9.1 fL (7.4-10.4); Monocytes # 0.5 10^3/uL (0.2-0.9); Monocytes % 10.4 %; Neutrophils # 2.78 10^3/uL (1.8-7.7); Neutrophils % 60.2 %; Nucleated Red Blood Cells % 0 %; Platelet Count 263 10^3/cmm (157-399); Red Blood Count 4.31 10^6/uL (3.85-5.65); Red Cell Distribution Width 12.1 % (12.1-15.1); White Blood Count 4.62 10^3/uL (3.29-11.43)
[2023-04-14 08:35] LABS: Carcinoembryonic Antigen 0.7 ng/mL (0.0-4.7)
[2023-04-14 08:46] LABS: Alanine Aminotransferase 12 U/L (0-41); Albumin Level 4.3 g/dL (3.5-5.2); Alkaline Phosphatase 49 U/L (40-130); Anion Gap 12.6 (5-19); Aspartate Amino Transferase 13 U/L (0-40); Blood Urea Nitrogen 18 mg/dL (8-23); Calcium 9.2 mg/dL (8.5-10.5); Carbon Dioxide 28 mmol/L (22-29); Chloride 102 mmol/L (98-107); Globulin 2.5 g/dL (1.3-4.6); Glomerular Filtration Rate 74.1 mL/min (90-130); Glucose 100 mg/dL (65-115); Osmolality Calculated 288 mOsm/kg (285-295); Potassium 4.6 mmol/L (3.5-5.1); Sodium 138 mmol/L (136-145); Total Bilirubin 0.3 mg/dL (0.15-1.2); Total Protein 6.8 g/dL (6.6-8.7)
== END 2023-04-29 23:59 | disposition home or self-care (01) ==
PROVIDERS: Nurse Practitioner Family; PCP Family Medicine; Visit Provider Internal Medicine Hematology & Oncology
DX: Z08 Encounter for follow-up examination after completed treatment for malignant neoplasm (principal); Z85.048 Personal history of other malignant neoplasm of rectum, rectosigmoid junction, and anus; Z90.49 Acquired absence of other specified parts of digestive tract; Z92.21 Personal history of antineoplastic chemotherapy; Z92.3 Personal history of irradiation
CPT/HCPCS: 36415; 80053; 82378; 85025; 99214

== ENCOUNTER → 2023-10-03 13:44 | Outpatient (BNVA) | payer MEDICARE, SELFPAY | PROVIDERS: PCP Family Medicine; Visit Provider Family Medicine | DX: R35.1 Nocturia (principal); I10 Essential (primary) hypertension; I42.8 Other cardiomyopathies; C20 Malignant neoplasm of rectum; Z00.00 Encounter for general adult medical examination without abnormal findings; E78.5 Hyperlipidemia, unspecified | CPT/HCPCS: 80053; 80061; 84153 ==

== ENCOUNTER 2023-10-12 08:05 | Outpatient (CLI) | payer MEDICARE, SELFPAY ==
[2023-10-12] MEDS: iohexol 350 mg/mL 500 mL Btl (per mL) PO (08:57)
--- NOTE | 2023-10-12 09:30 | CTR_ITS ---
PROCEDURE INFORMATION: Exam: CT Chest With Contrast; Diagnostic Exam date and time: 10/12/2023 9:29 AM Age: 68 years old Clinical indication: Condition or disease; Other: Colorectal cancer; Prior surgery; Surgery date: 6+ months; Surgery type: Colon, pacemaker; Additional info: Surveillance TECHNIQUE: Imaging protocol: Diagnostic computed tomography of the chest with contrast. Radiation optimization: All CT scans at this facility use at least one of these dose optimization techniques: automated exposure control; mA and/or kV adjustment per patient size (includes targeted exams where dose is matched to clinical indication); or iterative reconstruction. Contrast material: OMNI; Contrast volume: 100 ml; Contrast route: INTRAVENOUS (IV); COMPARISON: CT chest abdpel w/*[id number] 04/12/2023 11:11 AM RADIATION DOSE METRICS: Total DLP (mGy-cm): 1269.42 FINDINGS: Tubes, catheters and devices: Cardiac pacemaker on the left with leads in satisfactory position. Lungs: Unremarkable. No consolidation. No masses. Pleural spaces: Unremarkable. No pneumothorax. No pleural effusion. Heart: Unremarkable. No cardiomegaly. No pericardial effusion. Lymph nodes: Unremarkable. No enlarged lymph nodes. Vasculature: Unremarkable. No aortic aneurysm. Bones/joints: Unremarkable. No acute fracture. Soft tissues: Unremarkable. PROCEDURE INFORMATION: Exam: CT Abdomen And Pelvis With Contrast Exam date and time: 10/12/2023 9:29 AM Age: 68 years old Clinical indication: Condition or disease; Other: Colorectal cancer; Prior surgery; Surgery date: 6+ months; Surgery type: Colon, pacemaker; Additional info: Surveillance TECHNIQUE: Imaging protocol: Computed tomography of the abdomen and pelvis with contrast. Radiation optimization: All CT scans at this facility use at least one of these dose optimization techniques: automated exposure control; mA and/or kV adjustment per patient size (includes targeted exams where dose is matched to clinical indication); or iterative reconstruction. Contrast material: OMNI; Contrast volume: 100 ml; Contrast route: INTRAVENOUS (IV); COMPARISON: CT chest abdpel w/*[id number] 04/12/2023 11:11 AM RADIATION DOSE METRICS: Total DLP (mGy-cm): 1269.42 FINDINGS: Lungs: Lung bases are clear. No pleural effusion. Liver: Normal. No mass. Gallbladder and bile ducts: Normal. No calcified stones. No ductal dilation. Pancreas: Normal. No ductal dilation. Spleen: Normal. No splenomegaly. Adrenal glands: Normal. No mass. Kidneys and ureters: Tiny cysts involve both kidneys. Stomach and bowel: Unremarkable. No obstruction. No mucosal thickening. Appendix: No evidence of appendicitis. Intraperitoneal space: Unremarkable. No free air. No significant fluid collection. Vasculature: Unremarkable. No abdominal aortic aneurysm. Lymph nodes: Unremarkable. No enlarged lymph nodes. Urinary bladder: Unremarkable as visualized. Reproductive: Unremarkable as visualized. Bones/joints: Metallic surgical hardware can be seen in the lumbar spine. Soft tissues: Unremarkable. CT/CT chest abdpel w/*[id number] IMPRESSION: There is no evidence of active neoplastic disease. IMPRESSION: 1. There is no evidence of active neoplastic disease. 2. A benign renal cyst or cysts have been detected. No further follow-up imaging is required. COMMENTS: Consistent with the [employer]'s Incidental Findings Committee white paper (J Am Veena Radiol 2018): Any incidental renal lesion less than 1 cm or classified as too small to characterize, or any incidental cystic renal lesion characterized as simple-appearing, is likely benign. No follow-up imaging is recommended for these lesions per consensus recommendations based on imaging criteria.
[2023-10-12] MEDS: iohexol 350 mg/mL 500 mL Btl (per mL) IV (09:33)
== END 2023-10-12 08:06 | disposition home or self-care (01) ==
LOC: RAD 08:06
PROVIDERS: PCP Family Medicine; Visit Provider Nurse Practitioner Family
DX: C20 Malignant neoplasm of rectum (principal)
CPT/HCPCS: 71260; 74177; 99213; Q9967

== ENCOUNTER 2023-10-12 10:41 | Oncology outpatient (recurring) (ONCR) | payer MEDICARE, SELFPAY ==
[2023-10-12 10:59] LABS: Basophils # 0.1 10^3/uL (0.0-0.1); Basophils % 0.9 %; Eosinophils # 0.4 10^3/uL (0.0-0.8); Eosinophils % 7.1 %; Hematocrit 39.8 % (37-53); Lymphocytes # 1.2 10^3/uL (0.8-4.8); Mean Corpuscular HGB Conc 31.9 g/dL (30-55); Mean Corpuscular Hemoglobin 29.5 pg (27-33); Mean Corpuscular Volume 92.3 fl (82-101); Mean Platelet Volume 9.5 fL (7.4-10.4); Monocytes # 0.4 10^3/uL (0.2-0.9); Monocytes % 6.7 %; Neutrophils # 3.48 10^3/uL (1.8-7.7); Neutrophils % 63.1 %; Nucleated Red Blood Cells % 0 %; Platelet Count 234 10^3/cmm (157-399); Red Blood Count 4.31 10^6/uL (3.85-5.65); Red Cell Distribution Width 12.8 % (12.1-15.1); White Blood Count 5.51 10^3/uL (3.29-11.43)
[2023-10-12 11:46] LABS: Alanine Aminotransferase 11 U/L (0-41); Albumin Level 3.9 g/dL (3.5-5.2); Alkaline Phosphatase 54 U/L (40-130); Anion Gap 15.7 (5-19); Aspartate Amino Transferase 13 U/L (0-40); Blood Urea Nitrogen 18 mg/dL (8-23); Calcium 8.5 mg/dL (8.5-10.5); Carbon Dioxide 25 mmol/L (22-29); Chloride 100 mmol/L (98-107); Globulin 2.7 g/dL (1.3-4.6); Glomerular Filtration Rate 73.9 mL/min (90-130); Glucose 111 mg/dL (65-115); Osmolality Calculated 285 mOsm/kg (285-295); Potassium 4.7 mmol/L (3.5-5.1); Sodium 136 mmol/L (136-145); Total Bilirubin 0.4 mg/dL (0.15-1.2); Total Protein 6.6 g/dL (6.6-8.7)
== END 2023-10-29 23:59 | disposition home or self-care (01) ==
PROVIDERS: Nurse Practitioner Family; PCP Family Medicine; Visit Provider Internal Medicine Hematology & Oncology
DX: Z08 Encounter for follow-up examination after completed treatment for malignant neoplasm (principal); Z85.048 Personal history of other malignant neoplasm of rectum, rectosigmoid junction, and anus; Z90.49 Acquired absence of other specified parts of digestive tract; Z92.21 Personal history of antineoplastic chemotherapy; Z92.3 Personal history of irradiation; C20 Malignant neoplasm of rectum
CPT/HCPCS: 36415; 71260; 74177; 80053; 82378; 85025; 99213; Q9967

== ENCOUNTER → 2023-12-28 14:36 | Outpatient (BNVA) | payer MEDICARE, SELFPAY | PROVIDERS: PCP Family Medicine; Visit Provider Internal Medicine Cardiovascular Disease | DX: R53.1 Weakness (principal); Z79.01 Long term (current) use of anticoagulants; I48.91 Unspecified atrial fibrillation; R07.9 Chest pain, unspecified; Z95.810 Presence of automatic (implantable) cardiac defibrillator; I42.8 Other cardiomyopathies; R94.31 Abnormal electrocardiogram [ECG] [EKG] | CPT/HCPCS: 36415; 80053; 84443; 85025; 85610; 93005; 99215 ==

== ENCOUNTER 2024-01-11 09:26 | Outpatient (CLI) | payer MEDICARE, SELFPAY ==
[2024-01-11 10:25] LABS: Anion Gap 13.7 (5-19); Blood Urea Nitrogen 15 mg/dL (8-23); Calcium 9.5 mg/dL (8.5-10.5); Carbon Dioxide 29 mmol/L (22-29); Chloride 101 mmol/L (98-107); Glomerular Filtration Rate 66.2 mL/min (90-130); Glucose 122 mg/dL (65-115); Osmolality Calculated 288 mOsm/kg (285-295); Potassium 5.7 mmol/L (3.5-5.1); Sodium 138 mmol/L (136-145)
== END 2024-01-11 09:27 | disposition home or self-care (01) ==
PROVIDERS: PCP Family Medicine; Visit Provider Internal Medicine Cardiovascular Disease
DX: I42.8 Other cardiomyopathies (principal); I10 Essential (primary) hypertension; I48.91 Unspecified atrial fibrillation
CPT/HCPCS: 80048

== ENCOUNTER 2024-02-13 09:36 | Outpatient (CLI) | payer MEDICARE, SELFPAY ==
[2024-02-13 10:21] LABS: Basophils % 0.8 %; Eosinophils # 0.2 10^3/uL (0.0-0.8); Eosinophils % 4.6 %; Hematocrit 42.6 % (37-53); Lymphocytes # 0.9 10^3/uL (0.8-4.8); Lymphocytes % 18.6 %; Mean Corpuscular HGB Conc 31.7 g/dL (30-55); Mean Corpuscular Hemoglobin 29.3 pg (27-33); Mean Corpuscular Volume 92.4 fl (82-101); Mean Platelet Volume 9.6 fL (7.4-10.4); Monocytes # 0.4 10^3/uL (0.2-0.9); Monocytes % 7.9 %; Neutrophils # 3.37 10^3/uL (1.8-7.7); Neutrophils % 68.1 %; Nucleated Red Blood Cells % 0 %; Platelet Count 207 10^3/cmm (157-399); Red Blood Count 4.61 10^6/uL (3.85-5.65); Red Cell Distribution Width 12.3 % (12.1-15.1); White Blood Count 4.95 10^3/uL (3.29-11.43)
[2024-02-13 10:42] LABS: Anion Gap 13.3 (5-19); Blood Urea Nitrogen 15 mg/dL (8-23); Calcium 9.6 mg/dL (8.5-10.5); Carbon Dioxide 28 mmol/L (22-29); Chloride 105 mmol/L (98-107); Glomerular Filtration Rate 66.2 mL/min (90-130); Glucose 152 mg/dL (65-115); Osmolality Calculated 296 mOsm/kg (285-295); Potassium 5.3 mmol/L (3.5-5.1); Sodium 141 mmol/L (136-145)
== END 2024-02-13 09:37 | disposition home or self-care (01) ==
LOC: LAB 09:37
PROVIDERS: PCP Family Medicine; Visit Provider Internal Medicine Cardiovascular Disease
DX: I48.91 Unspecified atrial fibrillation (principal); I42.8 Other cardiomyopathies; I10 Essential (primary) hypertension
CPT/HCPCS: 36415; 80048; 85025

== ENCOUNTER 2024-03-06 10:14 | Outpatient (CLI) | payer MEDICARE, SELFPAY ==
[2024-03-06 10:53] LABS: Anion Gap 18.3 (5-19); Blood Urea Nitrogen 21 mg/dL (8-23); Calcium 9.8 mg/dL (8.5-10.5); Carbon Dioxide 25 mmol/L (22-29); Chloride 104 mmol/L (98-107); Glomerular Filtration Rate 50.1 mL/min (90-130); Glucose 166 mg/dL (65-115); Osmolality Calculated 301 mOsm/kg (285-295); Potassium 5.3 mmol/L (3.5-5.1); Sodium 142 mmol/L (136-145)
== END 2024-03-06 10:15 | disposition home or self-care (01) ==
LOC: LAB 10:16
PROVIDERS: PCP Family Medicine; Visit Provider Internal Medicine Cardiovascular Disease
DX: I10 Essential (primary) hypertension (principal); I42.8 Other cardiomyopathies; I48.91 Unspecified atrial fibrillation
CPT/HCPCS: 36415; 80048

== ENCOUNTER 2024-03-25 10:15 | Outpatient (CLI) | payer MEDICARE, SELFPAY ==
[2024-03-25 10:31] LABS: Basophils # 0.1 10^3/uL (0.0-0.1); Basophils % 0.9 %; Eosinophils # 0.2 10^3/uL (0.0-0.8); Eosinophils % 3.5 %; Hematocrit 44.9 % (37-53); Lymphocytes # 1.2 10^3/uL (0.8-4.8); Lymphocytes % 17.6 %; Mean Corpuscular HGB Conc 32.5 g/dL (30-55); Mean Corpuscular Hemoglobin 29.7 pg (27-33); Mean Corpuscular Volume 91.3 fl (82-101); Mean Platelet Volume 9.3 fL (7.4-10.4); Monocytes # 0.6 10^3/uL (0.2-0.9); Monocytes % 8.2 %; Neutrophils # 4.82 10^3/uL (1.8-7.7); Neutrophils % 69.5 %; Nucleated Red Blood Cells % 0 %; Platelet Count 232 10^3/cmm (157-399); Red Blood Count 4.92 10^6/uL (3.85-5.65); Red Cell Distribution Width 12.4 % (12.1-15.1); White Blood Count 6.93 10^3/uL (3.29-11.43)
[2024-03-25 11:00] LABS: Carcinoembryonic Antigen 0.8 ng/mL (0.0-4.7)
[2024-03-25 11:11] LABS: Alanine Aminotransferase 12 U/L (0-41); Albumin Level 4.4 g/dL (3.5-5.2); Alkaline Phosphatase 49 U/L (40-130); Blood Urea Nitrogen 16 mg/dL (8-23); Calcium 9.1 mg/dL (8.5-10.5); Carbon Dioxide 26 mmol/L (22-29); Chloride 101 mmol/L (98-107); Globulin 2.8 g/dL (1.3-4.6); Glomerular Filtration Rate 73.9 mL/min (90-130); Glucose 119 mg/dL (65-115); Osmolality Calculated 292 mOsm/kg (285-295); Sodium 140 mmol/L (136-145); Total Bilirubin 0.6 mg/dL (0.15-1.2); Total Protein 7.2 g/dL (6.6-8.7)
[2024-03-25 11:21] LABS: Anion Gap 17.6 (5-19); Aspartate Amino Transferase 20 U/L (0-40); Potassium 4.6 mmol/L (3.5-5.1)
== END 2024-03-25 10:16 | disposition home or self-care (01) ==
PROVIDERS: Internal Medicine Medical Oncology; PCP Family Medicine; Visit Provider Internal Medicine Cardiovascular Disease
DX: C20 Malignant neoplasm of rectum (principal)
CPT/HCPCS: 36415; 80053; 82378; 85025

== ENCOUNTER 2024-04-02 13:47 | Outpatient (CLI) | payer MEDICARE, SELFPAY ==
[2024-04-02] MEDS: iohexol 350 mg/mL 500 mL Btl (per mL) PO (14:07)
--- NOTE | 2024-04-02 15:00 | CTR_ITS ---
PROCEDURE INFORMATION: Exam: CT Chest With Contrast; Diagnostic Exam date and time: 04/02/2024 2:51 PM Age: 68 years old Clinical indication: Condition or disease; Other: Rectal cancer; Prior surgery; Surgery date: 6+ months; Surgery type: Colon resection TECHNIQUE: Imaging protocol: Diagnostic computed tomography of the chest with contrast. Radiation optimization: All CT scans at this facility use at least one of these dose optimization techniques: automated exposure control; mA and/or kV adjustment per patient size (includes targeted exams where dose is matched to clinical indication); or iterative reconstruction. Contrast material: OMNI 350; Contrast volume: 100 ml; Contrast route: INTRAVENOUS (IV); COMPARISON: CT chest abdpel w/*[id number] 10/12/2023 9:29 AM RADIATION DOSE METRICS: Total DLP (mGy-cm): 1218.84 FINDINGS: Tubes, catheters and devices: Cardiac pacemaker on the left with leads in satisfactory position. Lungs: Unremarkable. No consolidation. No masses. Pleural spaces: Unremarkable. No pneumothorax. No pleural effusion. Heart: Unremarkable. No cardiomegaly. No pericardial effusion. Lymph nodes: Unremarkable. No enlarged lymph nodes. Vasculature: Unremarkable. No aortic aneurysm. Bones/joints: Unremarkable. No acute fracture. Soft tissues: Unremarkable. PROCEDURE INFORMATION: Exam: CT Abdomen And Pelvis With Contrast Exam date and time: 04/02/2024 2:51 PM Age: 68 years old Clinical indication: Condition or disease; Other: Rectal cancer; Prior surgery; Surgery date: 6+ months; Surgery type: Colon resection TECHNIQUE: Imaging protocol: Computed tomography of the abdomen and pelvis with contrast. Radiation optimization: All CT scans at this facility use at least one of these dose optimization techniques: automated exposure control; mA and/or kV adjustment per patient size (includes targeted exams where dose is matched to clinical indication); or iterative reconstruction. Contrast material: OMNI 350; Contrast volume: 100 ml; Contrast route: INTRAVENOUS (IV); COMPARISON: CT chest abdpel w/*[id number] 10/12/2023 9:29 AM RADIATION DOSE METRICS: Total DLP (mGy-cm): 1218.84 FINDINGS: Lungs: Lung bases are clear. No pleural effusion. Liver: Normal. No mass. Gallbladder and biliary ducts: Normal. No calcified stones. No ductal dilation. Pancreas: Normal. No ductal dilation. Spleen: Normal. No splenomegaly. Adrenal glands: Normal. No mass. Kidneys and ureters: A 2 cm left renal cyst is noted. Stomach and bowel: There is evidence of previous rectal surgery. Appendix: No evidence of appendicitis. Intraperitoneal space: Unremarkable. No free air. No significant fluid collection. Vasculature: Unremarkable. No abdominal aortic aneurysm. Lymph nodes: Unremarkable. No enlarged lymph nodes. Urinary bladder: Unremarkable as visualized. Reproductive: The prostate gland is abnormally enlarged. Bones/joints: Metallic surgical hardware can be seen in the lumbar spine. Soft tissues: Unremarkable. CT/CT chest abdpel w/*[id number] IMPRESSION: There is no evidence of active neoplastic disease. IMPRESSION: There is no evidence of active neoplastic disease. A benign renal cyst or cysts have been detected. No further follow-up imaging is required. COMMENTS: Consistent with the [employer]'s Incidental Findings Committee white paper (J Am Veena Radiol 2018): Any incidental renal lesion less than 1 cm or classified as too small to characterize, or any incidental cystic renal lesion characterized as simple-appearing, is likely benign. No follow-up imaging is recommended for these lesions per consensus recommendations based on imaging criteria.
[2024-04-02] MEDS: iohexol 350 mg/mL 500 mL Btl (per mL) IV (15:01)
== END 2024-04-02 13:48 | disposition home or self-care (01) ==
LOC: RAD 13:47
PROVIDERS: PCP Family Medicine; Visit Provider Internal Medicine Medical Oncology
DX: C20 Malignant neoplasm of rectum (principal); N28.1 Cyst of kidney, acquired; Z98.890 Other specified postprocedural states; Z95.0 Presence of cardiac pacemaker
CPT/HCPCS: 71260; 74177

== ENCOUNTER 2024-05-22 14:41 | Oncology outpatient (recurring) (ONCR) | payer MEDICARE, SELFPAY | END 2024-05-30 23:59 | disposition home or self-care (01) | PROVIDERS: PCP Family Medicine; Visit Provider Internal Medicine Hematology & Oncology | DX: C20 Malignant neoplasm of rectum (principal); Z85.048 Personal history of other malignant neoplasm of rectum, rectosigmoid junction, and anus; Z90.49 Acquired absence of other specified parts of digestive tract; Z92.21 Personal history of antineoplastic chemotherapy; Z92.3 Personal history of irradiation | CPT/HCPCS: 99214 ==

== ENCOUNTER → 2024-06-26 13:56 | Outpatient (BNVA) | payer MEDICARE, SELFPAY | PROVIDERS: PCP Family Medicine; Visit Provider Nurse Practitioner Family | DX: I48.91 Unspecified atrial fibrillation (principal); Z95.810 Presence of automatic (implantable) cardiac defibrillator; I42.8 Other cardiomyopathies; I10 Essential (primary) hypertension; E78.2 Mixed hyperlipidemia | CPT/HCPCS: 36415; 80053; 99213 ==

== ENCOUNTER 2024-07-23 14:34 | Outpatient (CLI) | payer MEDICARE, SELFPAY ==
--- NOTE | 2024-07-23 15:00 | USCV_ITS ---
Pramod Domínguez Age: 68 Gender: M : 1955 Exam Date: 07/23/2024 14:57 Ordering Phys: Treasure [employer] NP Technologist: CT Exam [place] [facility] [place] Indication: BP: 100 / 70 HR: 57 Rhythm: Sinus Technical Quality: Adequate MEASUREMENTS (Male / Female) Normal Values 2D ECHO LVOT Diameter 2.8 cm LV Ejection Fraction MOD 4C 34.9 % LV Ejection Fraction MOD 2C 42.3 % LV Ejection Fraction 2C AL 42.2 % LA Diameter 4.0 cm RA Systolic Volume 4C AL 68.7 ml RA Systolic Volume 4C MOD 65.3 ml LA Sys Volume AL 43.9 cm cubed LA Sys Volume Index AL 19.7 cm cubed/m squared Aorta at Sinotubular Diameter 3.7 cm M-MODE LA Ao Ratio MM 0.7 AV Cusp Separation MM 2.8 cm DOPPLER AV Peak Velocity 138.0 cm/s LVOT Peak Velocity 91.0 cm/s AV Area Cont Eq vti 4.6 cm squared AV Area Cont Eq pk 4.1 cm squared MV Peak Velocity 117.0 cm/s MV Area PHT 3.2 cm squared Mitral E to A Ratio 0.6 TR Peak Velocity 246.5 cm/s TR Peak Gradient 24.3 mmHg TR Mean Velocity 194.0 cm/s TR Mean Gradient 16.8 mmHg TR Velocity Time Integral 54.3 cm TV Peak E Velocity 75.0 cm/s PV Peak Velocity 102.5 cm/s FINDINGS Left Ventricle Mild diffuse hypokinesia left-ventricular, more so of the septum and the anteroseptal segments. LV ejection fraction of around 40%. Right Ventricle Pacemaker wire is noted in the right ventricle Right Atrium Pacemaker wire is noted in the right atrium Left Atrium The left atrium is normal in size. Mitral Valve Mild mitral annular calcification. Aortic Valve Thickened aortic valve. Trace aortic valve regurgitation. Tricuspid Valve Trace to mild tricuspid valve regurgitation. Pulmonic Valve Structurally normal pulmonic valve without significant stenosis. There is no pulmonic regurgitation. Pericardium Normal pericardium without effusion. Aorta Normal ascending aorta dimension. IVC The inferior vena cava appears normal. CONCLUSIONS Mild diffuse hypokinesia left-ventricular, more so of the septum and the anteroseptal segments. LV ejection fraction of around 40%. Trace to mild tricuspid valve regurgitation. Estimated pulmonary artery peak systolic pressure 29 mmHg. Thickened aortic valve. Trace aortic valve regurgitation. Mild mitral annular calcification. Trace to mild tricuspid valve regurgitation. Compared to the study from 06/01/2021, there may be a slight improvement in the left ventricular ejection fraction. Dr Mary Patton MD [facility] (Electronically Signed) Final Date: 25 July 2024 15:55 S
== END 2024-07-23 14:35 | disposition home or self-care (01) ==
PROVIDERS: PCP Family Medicine; Visit Provider Nurse Practitioner Family
DX: I35.9 Nonrheumatic aortic valve disorder, unspecified (principal); I42.8 Other cardiomyopathies; Z95.810 Presence of automatic (implantable) cardiac defibrillator
CPT/HCPCS: 93306

== ENCOUNTER → 2024-08-07 09:08 | Outpatient (BNVA) | payer MEDICARE, SELFPAY | PROVIDERS: PCP Family Medicine; Visit Provider Internal Medicine Cardiovascular Disease | DX: Z45.02 Encounter for adjustment and management of automatic implantable cardiac defibrillator (principal) | CPT/HCPCS: 93296 ==

== ENCOUNTER 2024-12-25 16:45 | Oncology outpatient (recurring) (ONCR) | payer MEDICARE, SELFPAY ==
[2024-12-11 12:53] LABS: Basophils % 0.7 %; Eosinophils # 0.2 10^3/uL (0.0-0.8); Eosinophils % 4.1 %; Hematocrit 42.3 % (37-53); Lymphocytes # 1.3 10^3/uL (0.8-4.8); Lymphocytes % 23.7 %; Mean Corpuscular HGB Conc 32.6 g/dL (30-55); Mean Corpuscular Hemoglobin 29.2 pg (27-33); Mean Corpuscular Volume 89.4 fl (82-101); Mean Platelet Volume 9.5 fL (7.4-10.4); Monocytes # 0.5 10^3/uL (0.2-0.9); Monocytes % 8.4 %; Neutrophils # 3.54 10^3/uL (1.8-7.7); Neutrophils % 62.9 %; Nucleated Red Blood Cells % 0 %; Platelet Count 188 10^3/cmm (157-399); Red Blood Count 4.73 10^6/uL (3.85-5.65); Red Cell Distribution Width 12.2 % (12.1-15.1); White Blood Count 5.62 10^3/uL (3.29-11.43)
[2024-12-11 13:32] LABS: Alanine Aminotransferase 12 U/L (0-41); Albumin Level 4.1 g/dL (3.5-5.2); Alkaline Phosphatase 60 U/L (40-130); Aspartate Amino Transferase 16 U/L (0-40); Blood Urea Nitrogen 16 mg/dL (8-23); Carbon Dioxide 26 mmol/L (22-29); Chloride 104 mmol/L (98-107); Creatinine Clr Calc Pharmacy 79.8115; Globulin 2.9 g/dL (1.3-4.6); Glucose 86 mg/dL (65-115); Osmolality Calculated 290 mOsm/kg (285-295); Sodium 140 mmol/L (136-145); Total Bilirubin 0.5 mg/dL (0.15-1.2)
[2024-12-25] MEDS: iohexol 350 mg/mL 500 mL Btl (per mL) PO (16:06)
[2024-12-25] MEDS: iohexol 350 mg/mL 500 mL Btl (per mL) IV (16:06)
--- NOTE | 2024-12-25 16:45 | CTR_ITS ---
PROCEDURE INFORMATION: Exam: CT Chest With Contrast; Diagnostic Exam date and time: 12/25/2024 4:03 PM Age: 69 years old Clinical indication: Condition or disease; Cancer; Other: Malignant neoplasm of rectum; Prior surgery; Surgery date: 6+ months; Surgery type: Colon resection TECHNIQUE: Imaging protocol: Diagnostic computed tomography of the chest with contrast. Total images: 2133 Radiation optimization: All CT scans at this facility use at least one of these dose optimization techniques: automated exposure control; mA and/or kV adjustment per patient size (includes targeted exams where dose is matched to clinical indication); or iterative reconstruction. Contrast material: OMNI 350; Contrast volume: 100 ml; Contrast route: INTRAVENOUS (IV); COMPARISON: CT chest abdpel w/*[id number] 04/02/2024 2:51 PM RADIATION DOSE METRICS: Total DLP (mGy-cm): 1259.12 FINDINGS: Tubes, catheters and devices: AICD projects in satisfactory location. Lungs: Benign granulomatous disease of the lung is noted anterolateral left upper lobe unchanged. Pleural spaces: Unremarkable. No pneumothorax. No pleural effusion. Heart: Unremarkable. No cardiomegaly. No pericardial effusion. Lymph nodes: Unremarkable. No enlarged lymph nodes. Vasculature: Dilated ascending thoracic aorta measured at 4.2 cm. Bones/joints: Mild degenerative changes of the right shoulder are noted. Degenerative fusion T1-2. C6-C7 anterior cervical spine fusion. Plate and screws in place with no evidence of hardware failure. Spondylosis is noted with exuberant anterior and lateral osteophyte formation. Multilevel degenerative disc disease is noted with vacuum phenomenon. Osteophytes are noted extending from the vertebrae. No acute spinal pathology is detected. Soft tissues: There is nonspecific gynecomastia. Other findings: Mild atherosclerotic disease burden is evident. PROCEDURE INFORMATION: Exam: CT Abdomen And Pelvis With Contrast Exam date and time: 12/25/2024 4:03 PM Age: 69 years old Clinical indication: Condition or disease; Cancer; Other: Malignant neoplasm of rectum; Prior surgery; Surgery date: 6+ months; Surgery type: Colon resection TECHNIQUE: Imaging protocol: Computed tomography of the abdomen and pelvis with contrast. Radiation optimization: All CT scans at this facility use at least one of these dose optimization techniques: automated exposure control; mA and/or kV adjustment per patient size (includes targeted exams where dose is matched to clinical indication); or iterative reconstruction. Contrast material: OMNI 350; Contrast volume: 100 ml; Contrast route: INTRAVENOUS (IV); COMPARISON: CT chest abdpel w/*[id number] 04/12/2023 11:11 AM RADIATION DOSE METRICS: Total DLP (mGy-cm): 1259.12 FINDINGS: Liver: Normal. No mass. Gallbladder and biliary ducts: Normal. No calcified stones. No ductal dilation. Pancreas: Normal. No ductal dilation. Spleen: Normal. No splenomegaly. Adrenal glands: Normal. No mass. Kidneys and ureters: 2 cm largest cyst noted in kidneys that have multiple simple renal cysts. No further evaluation required. Stomach and bowel: Unremarkable. No obstruction. No mucosal thickening. Appendix: No evidence of appendicitis. Intraperitoneal space: Unremarkable. No free air. No significant fluid collection. Vasculature: Unremarkable. No abdominal aortic aneurysm. Lymph nodes: Unremarkable. No enlarged lymph nodes. Urinary bladder: Unremarkable as visualized. Reproductive: Unremarkable as visualized. Bones/joints: Bilateral SI joint bridging osteophytes. Multilevel degenerative disc disease is noted with vacuum phenomenon. Osteophytes are noted extending from the vertebrae. No acute spinal pathology is detected. L4-S1 Posterior spinal fusion and laminectomy noted. Rods and pedicle screws are in place and there is no evidence of hardware failure. Soft tissues: Postoperative anterior abdominal wall. Other findings: Moderate atherosclerotic disease burden is evident. No evidence of tumor recurrence. CT/CT chest abdpel w/*[id number] IMPRESSION: 1. Dilated ascending thoracic aorta measured at 4.2 cm. 2. No evidence of metastatic disease. IMPRESSION: 1. No evidence of tumor recurrence. 2. No evidence of metastatic disease. COMMENTS: Consistent with the [employer]'s Incidental Findings Committee white paper (J Am Veena Radiol 2018): Any incidental renal lesion less than 1 cm or classified as too small to characterize, or any incidental cystic renal lesion characterized as simple-appearing, is likely benign. No follow-up imaging is recommended for these lesions per consensus recommendations based on imaging criteria.
== END 2024-12-28 23:59 | disposition home or self-care (01) ==
LOC: RAD 12-26 00:01 → ONCMED 12-26 09:03
PROVIDERS: Internal Medicine; PCP Family Medicine; Visit Provider Internal Medicine Medical Oncology
DX: C20 Malignant neoplasm of rectum; I77.810 Thoracic aortic ectasia; Z53.9 Procedure and treatment not carried out, unspecified reason
CPT/HCPCS: 36415; 71260; 74177; 80053; 82378; 85025; 93296; 99205; 99999

== ENCOUNTER → 2025-01-13 13:45 | Outpatient (BNVA) | payer MEDICARE, SELFPAY | PROVIDERS: PCP Family Medicine; Visit Provider Internal Medicine Cardiovascular Disease | DX: I48.91 Unspecified atrial fibrillation (principal); Z79.01 Long term (current) use of anticoagulants; I42.8 Other cardiomyopathies; I10 Essential (primary) hypertension; Z95.810 Presence of automatic (implantable) cardiac defibrillator; Z87.891 Personal history of nicotine dependence; I25.2 Old myocardial infarction | CPT/HCPCS: 99214 ==

== ENCOUNTER → 2025-02-07 09:09 | Outpatient (BNVA) | payer MEDICARE, SELFPAY | PROVIDERS: PCP Family Medicine; Visit Provider Nurse Practitioner Family | DX: I48.91 Unspecified atrial fibrillation (principal); Z79.01 Long term (current) use of anticoagulants; I10 Essential (primary) hypertension; I42.9 Cardiomyopathy, unspecified; Z95.810 Presence of automatic (implantable) cardiac defibrillator; Z87.891 Personal history of nicotine dependence | CPT/HCPCS: 36415; 80048; 85025; 99213 ==

== ENCOUNTER → 2025-02-13 12:00 | Outpatient (BNVA) | payer MEDICARE, SELFPAY | PROVIDERS: PCP Family Medicine; Visit Provider Family Medicine | DX: L98.9 Disorder of the skin and subcutaneous tissue, unspecified (principal) | CPT/HCPCS: 88305 ==

== ENCOUNTER 2025-03-11 12:22 | Oncology outpatient (recurring) (ONCR) | payer MEDICARE, SELFPAY ==
[2025-03-11 12:39] LABS: Hematocrit 42.8 % (37-53); Hemoglobin 14.00 g/dL (11.27-16.99); Mean Corpuscular HGB Conc 32.7 g/dL (30-55); Mean Corpuscular Hemoglobin 28.9 pg (27-33); Mean Corpuscular Volume 88.4 fl (82-101); Nucleated Red Blood Cells % 0 %; Platelet Count 226 10^3/cmm (157-399); Red Blood Count 4.84 10^6/uL (3.85-5.65); White Blood Count 6.80 10^3/uL (3.29-11.43)
[2025-03-11 13:09] LABS: Carcinoembryonic Antigen 0.9 ng/mL (0.0-4.7)
[2025-03-11 13:20] LABS: Alanine Aminotransferase 11 U/L (0-41); Albumin Level 4.2 g/dL (3.5-5.2); Alkaline Phosphatase 53 U/L (40-130); Anion Gap 14.0 (5-19); Aspartate Amino Transferase 14 U/L (0-40); Blood Urea Nitrogen 17 mg/dL (8-23); Calcium 9.2 mg/dL (8.5-10.5); Carbon Dioxide 25 mmol/L (22-29); Chloride 102 mmol/L (98-107); Globulin 2.9 g/dL (1.3-4.6); Glucose 78 mg/dL (65-115); Osmolality Calculated 284 mOsm/kg (285-295); Potassium 4.0 mmol/L (3.5-5.1); Sodium 137 mmol/L (136-145); Total Protein 7.1 g/dL (6.6-8.7)
== END 2025-03-30 23:59 | disposition home or self-care (01) ==
PROVIDERS: PCP Family Medicine; Visit Provider Internal Medicine Medical Oncology
DX: C20 Malignant neoplasm of rectum (principal); Z92.21 Personal history of antineoplastic chemotherapy; Z92.3 Personal history of irradiation; Z87.891 Personal history of nicotine dependence; I71.40 Abdominal aortic aneurysm, without rupture, unspecified
CPT/HCPCS: 36415; 80053; 82378; 85025; 99214

== ENCOUNTER → 2025-03-19 10:43 | Outpatient (BNVA) | payer MEDICARE, SELFPAY | PROVIDERS: PCP Family Medicine; Visit Provider Internal Medicine Cardiovascular Disease | DX: Z45.02 Encounter for adjustment and management of automatic implantable cardiac defibrillator (principal) | CPT/HCPCS: 93296 ==

== ENCOUNTER 2025-03-26 12:41 | Emergency (ER) | payer MEDICARE, SELFPAY ==
--- NOTE | 2025-03-26 12:55 | XR_ITS ---
WS: [id number] Exam: XR shoulder LT min 2V* [id number] Date/Time of Exam: 03/26/2025 12:55 PM Reason For Exam: Trauma DLP: No acute fracture. Moderate degenerative change of the glenohumeral joint and the AC joint. High riding humeral head noted most likely indicating longstanding rotator cuff tear. Subacromial bone spurring or calcification. Bone spurring at the AC joint. Old fracture deformity of the LEFT clavicle. XR/XR shoulder LT min 2V* [id number] IMPRESSION: 1. Degenerative changes. 2. High riding humeral head probably indicating longstanding rotator cuff tear.
[2025-03-26 13:01] VITALS: BP 119/75; PULSE 76; RESP 16; O2SAT 96
--- NOTE | 2025-03-26 13:28 | W.ED.UPPEXIN ---
HPI - Extremity Injury (Upper) General: Chief Complaint: Extremity Injury, Upper Stated Complaint: lt shoulder inj Time Seen by Provider: 03/26/25 13:26 Source: patient Mode of arrival: ambulatory Limitations: no limitations History of Present Illness: Patient is a nice 69-year-old male here for complaints of left shoulder pain. He states 2 weeks ago he was leading his horses and states one took off one way and the other took off the other way and apparently pulled/tugged on his left shoulder. He has since had pain. He has continued to use the extremity thinking he could tough it out the pain has persisted. He is not complaining of numbness, tingling, loss of sensation to the arm. MD complaint: injury to: left and shoulder Onset (ago): week(s) Other Extremity Injury: Left: shoulder Other injuries: none Place: home Severity: moderate Relieving factors: immobilization Exacerbating factors: movement of extremity Context: other (pulling injury) Associated symptoms: Reports no associated symptoms; Denies neck pain or weakness in extremities Related Data Home Medications ?Medication ?Instructions ?Recorded ?Confirmed cholecalciferol (vitamin D3) 10 10 mcg PO QAM 06/09/20 03/11/25 mcg (400 unit) capsule vitamin B complex (B 1 tab PO DAILY 10/26/21 03/11/25 Complex-Vitamin B12 tablet) melatonin 3 mg capsule 6 mg PO .HS 06/09/22 03/11/25 Previous Rx's ?Medication ?Instructions ?Recorded apixaban 5 mg tablet (Eliquis) 5 mg PO BID #180 tabs 06/26/24 carvedilol 6.25 mg tablet 6.25 mg PO BID #180 tabs 08/01/24 rosuvastatin 10 mg tablet 10 mg PO QAM #90 tabs 08/01/24 meloxicam 15 mg tablet See Rx Instructions .Route 08/19/24 .COMPLEX #30 tabs hydrochlorothiazide 25 mg tablet See Rx Instructions .Route 12/16/24 .COMPLEX #90 tabs tramadol 50 mg tablet 50 mg PO QID PRN Pain #120 tabs 01/13/25 tadalafil 10 mg tablet (Cialis) 10 mg PO .Q 3days PRN sexual 02/04/25 activity #30 tabs sacubitril 49 mg-valsartan 51 mg 1 tab PO BID #60 tabs 03/12/25 tablet (Entresto) cyclobenzaprine 10 mg tablet 10 mg PO TID #14 tabs 03/26/25 ibuprofen 600 mg tablet 600 mg PO Q8H PRN pain #14 tabs 03/26/25 methylprednisolone 4 mg tablets in See Rx Instructions PO .COMPLEX 03/26/25 a dose pack (Medrol (Jose)) #21 ea Allergies Allergy/AdvReac Type Severity Reaction Status Date / Time erythromycin base Allergy ADR-Vomitin Verified 03/11/25 13:26 g morphine Allergy ALGY-Hives Verified 03/11/25 13:26 Review of Systems Const: Denies: fever(s) Card: Denies: chest pain Resp: Denies: dyspnea Musc: Reports: joint pain (L shoulder); Denies: neck pain, back pain, extremity pain, extremity swelling, joint warmth or joint stiffness Neuro: Denies: numbness in extremities, weakness in extremities or sensory changes PFSH ED PFSH: Medical History Hyperlipidemia ICD (implantable cardioverter-defibrillator), biventricular, in situ Hepatitis A Rectal cancer Cardiomyopathy Hypertension Myocardial infarction Surgical History History of removal of Port-a-Cath S/P closure of ileostomy Port-A-Cath in place (12/10/20) History of low anterior resection of rectum Ileostomy status History of carpal tunnel release left, 08/15/2019 right, 05/23/2019 H/O neck surgery History of back surgery Hx of colonoscopy (06/23/20) Hx of reduction of orbital fracture Family History Mother CAD (coronary artery disease) Cancer Dementia Hyperlipidemia Hypertension Grandfather Diabetes Hyperlipidemia Hypertension Father Hyperlipidemia Hypertension Social History Smoking and tobacco/nicotine status: never used tobacco/nicotine Quit status (tobacco/nicotine): has quit using Year quit tobacco: 1992 Former quit date comment: overall tobacco use 15 years Alcohol intake: current Alcohol intake frequency: few times a week Substance/Drug Use: never Household members: spouse Marital status: Current occupational status: retired Physical Exam Const: COMMON NORMALS: no acute distress, average body habitus, no limitations, healthy appearing, alert and well nourished GENERAL APPEARANCE: cooperative Neck/C-Spine: COMMON NORMALS: full ROM CERVICAL SPINE: No Cervical spine tenderness, No Paracervical muscle tenderness and No Trapezius muscle tenderness Extremity: COMMON NORMALS: normal to inspection, full ROM, capillary refill normal and no joint enlargement GENERAL: Yes normal exam except as noted LEFT UPPER EXTREMITY: Yes shoulder joint (full but painful ROM) Left shoulder joint: Yes inspection (normal gross inspection), Yes ROM and Yes neurovascular exam (normal) Neuro: COMMON NORMALS: moves all extremities, no focal motor deficits and no sensory deficits noted SENSORIUM/ORIENTATION: Yes alert Course Vital Signs: Vital signs: Vital Signs Pulse Rate 76 03/26/25 13:01 Respiratory Rate 16 03/26/25 13:01 Blood Pressure 119/75 03/26/25 13:01 Pulse Oximetry 96 03/26/25 13:01 Oxygen Delivery Me thod Room Air 03/26/25 13:01 MDM - Extremity Injury (Upper) Medical Decision Making XR showing no fracture or dislocation. Imaging does indicate possible longstanding rotator cuff tear. Will prescribe him anti-inflammatories, steroids, muscle relaxers. He already takes tramadol that he can continue to take if needed. Recommend he follow-up with primary care for further evaluation and/or physical therapy if symptoms persist. Also discussed outpatient advanced imaging if he does not improve conservatively. Medical Records I reviewed the patient's medical records. Lab Data Radiology Impressions Shoulder X-Ray 03/26/25 12:55 IMPRESSION: 1. Degenerative changes. 2. High riding humeral head probably indicating longstanding rotator cuff tear. All radiology interpretation(s) finalized by discharge Discharge Plan Discharge Patient Disposition: Home Clinical Impression: Injury of shoulder, left Qualifiers: Encounter type: initial encounter Qualified Code(s): S49.92XA - Unspecified injury of left shoulder and upper arm, initial encounter Condition: Stable Prescriptions: New ibuprofen 600 mg tablet 600 mg PO Q8H PRN (Reason: pain) Qty: 14 0RF cyclobenzaprine 10 mg tablet 10 mg PO TID Qty: 14 0RF methylprednisolone [Medrol (Jose)] 4 mg tablets,dose pack See Rx Instructions .ROUTE .COMPLEX Qty: 21 0RF Rx Instructions: orally per package directions No Action cholecalciferol (vitamin D3) 10 mcg (400 unit) capsule 10 mcg PO QAM vitamin B complex [B Complex-Vitamin B12] Tablet 1 tab PO DAILY tadalafil [Cialis] 10 mg tablet 10 mg PO .Q 3days PRN (Reason: sexual activity) Qty: 30 1RF melatonin 3 mg capsule 6 mg PO .HS Eliquis 5 mg tablet 5 mg PO BID Qty: 180 3RF lidocaine (PF) 10 mg/mL (1 %) solution 10 mg SUBCUT ONCE Qty: 1 0RF rosuvastatin 10 mg tablet 10 mg PO QAM Qty: 90 3RF carvedilol 6.25 mg tablet 6.25 mg PO BID Qty: 180 3RF meloxicam 15 mg tablet See Rx Instructions .ROUTE .COMPLEX Qty: 30 11RF Dose Instruction: TAKE ONE TABLET BY MOUTH DAILY with food Rx Instructions: TAKE ONE TABLET BY MOUTH DAILY with food hydrochlorothiazide 25 mg tablet See Rx Instructions .ROUTE .COMPLEX Qty: 90 3RF Dose Instruction: TAKE ONE TABLET BY MOUTH DAILY Rx Instructions: TAKE ONE TABLET BY MOUTH DAILY tramadol 50 mg tablet 50 mg PO QID PRN (Reason: Pain) Qty: 120 4RF Rx Instructions: States taking 2 tablets twice daily Entresto 49-51 mg tablet 1 tab PO BID Qty: 60 1RF Discharge Orders: Discharge ED (Routine); Ordered 03/26/25 Ordered By: Treasure Hobbs Referrals: Jean Claude Toth MD [Primary Care Provider, Family Practice] Patient Instructions: Patient Portal & Kana Instructions Activity Restrictions/Additional Instructions: As we discussed, I would like you to follow-up with your primary care provider in case shoulder pain does not begin to improve with prescribed medications. You may require outpatient physical therapy and/or advanced imaging if symptoms do not improve conservatively. Print Language: Bolivian Coding Level of Care Code ED [employer] for Liudmila Eason
[2025-03-26 14:22] VITALS: BP 136/85; PULSE 78; RESP 16; O2SAT 95
== END 2025-03-26 14:23 | disposition home or self-care (01) ==
PROVIDERS: Emergency Provider Physician Assistant; PCP Family Medicine
DX: S49.92XA Unspecified injury of left shoulder and upper arm, initial encounter (principal); Z79.01 Long term (current) use of anticoagulants; Z87.891 Personal history of nicotine dependence; E78.5 Hyperlipidemia, unspecified; I10 Essential (primary) hypertension; X58.XXXA Exposure to other specified factors, initial encounter
CPT/HCPCS: 73030; 99283

== ENCOUNTER → 2025-04-11 10:56 | Outpatient (BNVA) | payer MEDICARE, SELFPAY | PROVIDERS: PCP Family Medicine; Visit Provider Orthopaedic Surgery | DX: S46.012A Strain of muscle(s) and tendon(s) of the rotator cuff of left shoulder, initial encounter (principal); X58.XXXA Exposure to other specified factors, initial encounter; M19.012 Primary osteoarthritis, left shoulder | CPT/HCPCS: 99204 ==

== ENCOUNTER → 2025-04-18 13:34 | Outpatient (BNVA) | payer MEDICARE, SELFPAY | PROVIDERS: PCP Family Medicine; Visit Provider Nurse Practitioner Family | DX: L82.1 Other seborrheic keratosis (principal); D17.0 Benign lipomatous neoplasm of skin and subcutaneous tissue of head, face and neck; B35.6 Tinea cruris; L57.0 Actinic keratosis | CPT/HCPCS: 17000; 99203 ==

== ENCOUNTER 2025-05-16 08:21 | Outpatient (CLI) | payer MEDICARE, SELFPAY ==
--- NOTE | 2025-05-16 09:30 | IR_ITS ---
WS: [id number] SHOULDER ARTHROGRAM LEFT Fluoroscopic guided LEFT shoulder arthrogram CLINICAL INFORMATION: left shoulder pain COMPARISON: None. PROCEDURE: The procedure including risks, benefits and complications were discussed with the patient, who agreed to proceed. Using sterile technique, the patient was prepped and draped in the usual sterile fashion. After 1% lidocaine injection using fluoroscopic guidance, a 22-gauge spinal needle was advanced into the glenohumeral joint. Approximately 15 ml of a solution containing 5 ml normal saline, 10 ml Omnipaque 240, 5ml 1% lidocaine was administered. No immediate complications. Advanced arthritis glenohumeral joint with joint space narrowing and hypertrophic changes. Full-thickness rotator cuff tears with injected contrast extending into the subacromial space. CT to follow for better anatomic detail FLUOROSCOPY TIME: 1min [id number] # of spot films: 2 IR/IR arthrogram shoulderLT [id number] IMPRESSION: Uncomplicated fluoroscopic-guided LEFT shoulder arthrogram. CT to follow.
--- NOTE | 2025-05-16 09:45 | CT_ITS ---
WS: [id number] INDICATION: Injured LEFT shoulder while working with horses. History of prior bull riding injuries TECHNIQUE: CT LEFT shoulder arthrogram. FINDINGS: Advanced arthritis AC joint with moderate downsloping acromion. Subacromial spurring. Hypertrophic changes AC joint. Complete high-grade tears involving the supraspinatus with chronic atrophy of the muscle belly. Additional high-grade full-thickness tear of the infraspinatus with a more recent appearance. Contrast extending into the subacromial space. Teres minor appears intact. Subscapularis tendon appears intact. Biceps tendon not well visualized in the bicipital groove probably chronically torn. Biceps tendon remnant appears medially subluxed or dislocated along the proximal bicipital groove. Small intra-articular biceps tendon is visualized. Advanced degenerative narrowing of the glenohumeral articulation with subchondral cystic changes about the humeral head and glenoid fossa.Cardiac pacer CT/CT shoulder LT w con [id number] IMPRESSION: 1. Advanced arthritis AC joint with moderate downsloping acromion. 2. Full-thickness chronic appearing tear of the supraspinatus with atrophy of the muscle belly. Retraction to the glenohumeral joint. 3. Full-thickness tear of the infraspinatus with a more recent appearance. 4. Rotator cuff is otherwise intact. 5. Biceps tendon in the bicipital groove is poorly visualized and likely chron ically torn. 6. Suggestion of a small remnant subluxed/dislocated along the proximal bicipi january groove with a small incomplete appearing intra-articular biceps tendon. Int ra-articular biceps tendon is tiny at the biceps labral anchor. 7. Advanced degenerative glenohumeral articulation.
[2025-05-16] MEDS: iohexol 240 mg/mL 50 mL Btl 10 ML INTRA-ARTI (11:08)
== END 2025-05-16 08:22 | disposition home or self-care (01) ==
LOC: RAD 08:23
PROVIDERS: PCP Family Medicine; Visit Provider Orthopaedic Surgery
DX: S46.012A Strain of muscle(s) and tendon(s) of the rotator cuff of left shoulder, initial encounter (principal); W55.19XA Other contact with horse, initial encounter; Z87.828 Personal history of other (healed) physical injury and trauma; M19.012 Primary osteoarthritis, left shoulder; M89.48 Other hypertrophic osteoarthropathy, other site
CPT/HCPCS: 23350; 73201; 77002; J9999; Q9966

== ENCOUNTER → 2025-05-27 09:41 | Outpatient (BNVA) | payer MEDICARE, SELFPAY | PROVIDERS: PCP Family Medicine; Visit Provider Orthopaedic Surgery | DX: S46.812A Strain of other muscles, fascia and tendons at shoulder and upper arm level, left arm, initial encounter (principal); X58.XXXA Exposure to other specified factors, initial encounter | CPT/HCPCS: 99213 ==

== ENCOUNTER → 2025-06-03 10:19 | Outpatient (BNVA) | payer MEDICARE, SELFPAY | PROVIDERS: PCP Family Medicine; Visit Provider Family Medicine | DX: Z01.818 Encounter for other preprocedural examination (principal) | CPT/HCPCS: 80053; 81000; 85025 ==

== ENCOUNTER 2025-06-10 11:54 | Oncology outpatient (recurring) (ONCR) | payer MEDICARE, SELFPAY ==
[2025-06-10 12:16] LABS: Hematocrit 39.7 % (37-53); Hemoglobin 12.80 g/dL (11.27-16.99); Mean Corpuscular HGB Conc 32.2 g/dL (30-55); Mean Corpuscular Hemoglobin 30.1 pg (27-33); Mean Corpuscular Volume 93.4 fl (82-101); Nucleated Red Blood Cells % 0 %; Platelet Count 228 10^3/cmm (157-399); Red Blood Count 4.25 10^6/uL (3.85-5.65); White Blood Count 8.78 10^3/uL (3.29-11.43)
[2025-06-10 12:45] LABS: Carcinoembryonic Antigen 1.0 ng/mL (0.0-4.7)
[2025-06-10 12:56] LABS: Alanine Aminotransferase 10 U/L (0-41); Albumin Level 4.2 g/dL (3.5-5.2); Alkaline Phosphatase 52 U/L (40-130); Anion Gap 16.2 (5-19); Aspartate Amino Transferase 13 U/L (0-40); Blood Urea Nitrogen 17 mg/dL (8-23); Calcium 9.2 mg/dL (8.5-10.5); Carbon Dioxide 26 mmol/L (22-29); Chloride 103 mmol/L (98-107); Globulin 2.9 g/dL (1.3-4.6); Glucose 153 mg/dL (65-115); Osmolality Calculated 297 mOsm/kg (285-295); Potassium 4.2 mmol/L (3.5-5.1); Sodium 141 mmol/L (136-145); Total Protein 7.1 g/dL (6.6-8.7)
== END 2025-06-29 23:59 | disposition home or self-care (01) ==
PROVIDERS: Internal Medicine Medical Oncology; PCP Family Medicine; Visit Provider Nurse Practitioner Family
DX: Z08 Encounter for follow-up examination after completed treatment for malignant neoplasm (principal); Z85.038 Personal history of other malignant neoplasm of large intestine; Z92.21 Personal history of antineoplastic chemotherapy; Z92.3 Personal history of irradiation; Z87.891 Personal history of nicotine dependence; Z95.828 Presence of other vascular implants and grafts
CPT/HCPCS: 36415; 80053; 82378; 85025; 99214

== ENCOUNTER 2025-06-17 07:46 | Outpatient (CLI) | payer MEDICARE, SELFPAY ==
--- NOTE | 2025-06-17 08:15 | CTR_ITS ---
PROCEDURE INFORMATION: Exam: CT Chest With Contrast; Diagnostic Exam date and time: 06/17/2025 9:20 AM Age: 69 years old Clinical indication: Condition or disease; Other: Colorectal cancer; Prior surgery; Surgery date: 6+ months; Surgery type: Colorectal, back, pacemaker. Iv; Additional info: Surveillance TECHNIQUE: Imaging protocol: Diagnostic computed tomography of the chest with contrast. Radiation optimization: All CT scans at this facility use at least one of these dose optimization techniques: automated exposure control; mA and/or kV adjustment per patient size (includes targeted exams where dose is matched to clinical indication); or iterative reconstruction. Contrast material: OMNI 350; Contrast volume: 100 ml; Contrast route: INTRAVENOUS (IV); COMPARISON: CT chest abdpel w/*[id number] 12/25/2024 4:03 PM RADIATION DOSE METRICS: Total DLP (mGy-cm): 1294.61 FINDINGS: Lungs: Unremarkable. No consolidation. No masses. Pleural spaces: Unremarkable. No pneumothorax. No pleural effusion. Heart: Unremarkable. No cardiomegaly. No pericardial effusion. Coronary arteries: Coronary artery calcifications. Coronary artery calcifications. Lymph nodes: Unremarkable. No enlarged lymph nodes. 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 Bones/joints: Unremarkable. No acute fracture. Soft tissues: Unremarkable. PROCEDURE INFORMATION: Exam: CT Abdomen And Pelvis With Contrast Exam date and time: 06/17/2025 9:20 AM Age: 69 years old Clinical indication: Condition or disease; Other: Colorectal cancer; Prior surgery; Surgery date: 6+ months; Surgery type: Colorectal, back, pacemaker. Iv; Additional info: Surveillance TECHNIQUE: Imaging protocol: Computed tomography of the abdomen and pelvis with contrast. Radiation optimization: All CT scans at this facility use at least one of these dose optimization techniques: automated exposure control; mA and/or kV adjustment per patient size (includes targeted exams where dose is matched to clinical indication); or iterative reconstruction. Contrast material: OMNI 350; Contrast volume: 100 ml; Contrast route: INTRAVENOUS (IV); COMPARISON: CT chest abdpel w/*[id number] 04/12/2023 11:11 AM RADIATION DOSE METRICS: Total DLP (mGy-cm): 1294.61 FINDINGS: Liver: Normal. No mass. Gallbladder and biliary ducts: Normal. No calcified stones. No ductal dilation. Pancreas: Normal. No ductal dilation. Spleen: Normal. No splenomegaly. Adrenal glands: Normal. No mass. Kidneys and ureters: Small renal cysts. Stomach and bowel: Unremarkable. No obstruction. No mucosal thickening. Appendix: No evidence of appendicitis. Intraperitoneal space: Unremarkable. No free air. No significant fluid collection. Vasculature: Unremarkable. No abdominal aortic aneurysm. Lymph nodes: Unremarkable. No enlarged lymph nodes. Urinary bladder: Unremarkable as visualized. Reproductive: Unremarkable as visualized. Bones/joints: Posterior fusion lumbosacral spine. Soft tissues: Unremarkable. CT/CT chest abdpel w/*[id number] IMPRESSION: No evidence of metastatic disease. IMPRESSION: No evidence of metastatic disease. COMMENTS: Consistent with the [employer]'s Incidental Findings Committee white paper (J Am Veena Radiol 2018): Any incidental renal lesion less than 1 cm or classified as too small to characterize, or any incidental cystic renal lesion characterized as simple-appearing, is likely benign. No follow-up imaging is recommended for these lesions per consensus recommendations based on imaging criteria.
[2025-06-17] MEDS: iohexol 350 mg/mL 500 mL Btl (per mL) PO (09:28)
[2025-06-17] MEDS: iohexol 350 mg/mL 500 mL Btl (per mL) IV (09:29)
== END 2025-06-17 07:47 | disposition home or self-care (01) ==
LOC: RAD 07:47
PROVIDERS: PCP Family Medicine; Visit Provider Nurse Practitioner Family
DX: C20 Malignant neoplasm of rectum (principal); I25.10 Atherosclerotic heart disease of native coronary artery without angina pectoris; I77.810 Thoracic aortic ectasia; N28.1 Cyst of kidney, acquired; M43.27 Fusion of spine, lumbosacral region
CPT/HCPCS: 71260; 74177

== ENCOUNTER 2025-06-18 11:31 | Observation (INO) | payer MEDICARE, SELFPAY ==
--- NOTE | 2025-06-17 21:20 | ANES.PREANE2 ---
Pre-Anesthetic Assessment Height/Weight: Height 5 ft 11 in Preop Diagnosis: Rotator cuff tear Operation Date: 06/18/25 07:00 Proposed Procedures p Hemiarthroplasty Shoulder/Humerus(Left) - Shantanu Dukes MD Was Beta Imer taken within 24 hours: Yes Was Clonidine taken within 24 hours: N/A Social No alcohol and No tobacco Exam alert, oriented x 3, clear to auscultation bilaterally and regular rate & rhythm Airway Submandibular: within normal limits Cervical ROM: within normal limits Mallampati: Class III Dentition: loose and full Comments: Comments: front loose tooth Anesthetic Plan ASA status: 3 Anesthesia: General and Regional (specify below) Other: No prior issues to anesthesia NPO since yesterday evening History of hypertension on carvedilol, hydrochlorothiazide, sacubitril?valsartan. Preop BP 120/81 History of A-fib, on chronic Eliquis. Last taken 06/15/2025. Patient was bridged with subcu Lovenox ICD in place, Last checked 06/11/2025. We will place a magnet over this during the procedure due to proximity to surgical site Labs 06/10/2025 reviewed acceptable for procedure Plan for GETA with peripheral nerve block Medications/Allergies Home Medications ?Medication ?Instructions ?Recorded ?Confirmed ?Last Taken ?Type cholecalciferol (vitamin D3) 10 10 mcg PO QAM 06/09/20 06/17/25 06/17/25 History mcg (400 unit) capsule vitamin B complex (B 1 tab PO DAILY 10/26/21 06/17/25 06/17/25 History Complex-Vitamin B12 tablet) melatonin 3 mg capsule 5 mg PO .HS 06/09/22 06/17/25 06/16/25 History carvedilol 6.25 mg tablet 6.25 mg PO BID #180 tabs 08/01/24 06/17/25 06/18/25 Rx rosuvastatin 10 mg tablet 10 mg PO QAM #90 tabs 08/01/24 06/17/25 06/17/25 Rx tadalafil 10 mg tablet (Cialis) 10 mg PO .Q 3days PRN sexual 02/04/25 06/17/25 Unknown Rx activity #30 tabs sacubitril 49 mg-valsartan 51 mg 1 tab PO BID #180 tabs 05/15/25 06/17/2506/17/25 Rx tablet (Entresto) apixaban 5 mg tablet (Eliquis) 5 mg PO BID #180 tabs 05/28/25 06/17/25 06/15/25 Rx enoxaparin 100 mg/mL subcutaneous 100 mg SUBCUT Q12H #5 mL 06/10/25 06/17/25 06/17/25 Rx syringe (Lovenox) tramadol 50 mg tablet 50 mg PO QID PRN Pain #120 tabs 06/13/25 06/17/25 06/17/25 Rx hydrochlorothiazide 25 mg tablet 25 mg PO DAILY 06/17/25 06/17/25 06/17/25 History meloxicam 15 mg tablet 15 mg PO DAILY 06/17/25 06/10/25 History Allergies Allergy/AdvReac Type Severity Reaction Status Date / Time erythromycin base Allergy ADR-Vomitin Verified 06/17/25 15:20 g morphine Allergy ALGY-Hives Verified 06/17/25 15:20 PFSH Anesthesia Medical History Hyperlipidemia ICD (implantable cardioverter-defibrillator), biventricular, in situ Hepatitis A Rectal cancer Cardiomyopathy Hypertension Myocardial infarction Surgical History History of removal of Port-a-Cath S/P closure of ileostomy Port-A-Cath in place (12/10/20) History of low anterior resection of rectum Ileostomy status History of carpal tunnel release left, 08/15/2019 right, 05/23/2019 H/O neck surgery History of back surgery Hx of colonoscopy (06/23/20) Hx of reduction of orbital fracture Family History Mother CAD (coronary artery disease) Cancer Dementia Hyperlipidemia Hypertension Grandfather Diabetes Hyperlipidemia Hypertension Father Hyperlipidemia Hypertension Social History Smoking and tobacco/nicotine status: never used tobacco/nicotine Quit status (tobacco/nicotine): has quit using Year quit tobacco: 1992 Former quit date comment: overall tobacco use 15 years Alcohol intake: current Alcohol intake frequency: few times a week Substance/Drug Use: never Household members: spouse Marital status: Current occupational status: retired Data Anesthesia Cardiac Studies: Echocardiogram 07/23/24 Echocardiogram Ultrasound 01/13/20 Sestamibi Stress Test (Cardiology) 02/03/20
[2025-06-18] VITALS (20 sets, daily range): BP systolic 97–125; BP diastolic 42–81; PULSE 54–90; RESP 10–24; TEMP 36.1–36.9; O2SAT 90–98; BMI 29.9
--- NOTE | 2025-06-18 06:46 | W.PM.OPSUD ---
Surgery/Procedure H&P Update DATE OF PROCEDURE: June 18, 2025 DATE H&P PERFORMED: 05/27/25 H&P UPDATE INFORMATION: I have reviewed H&P completed within last 30 days, I have examined patient prior to procedure and No changes to prior documentation PREOP DIAGNOSIS: Rotator cuff tear PLANNED PROCEDURE: Operation Date: 06/18/25 07:00 Proposed Procedures p Hemiarthroplasty Shoulder/Humerus(Left) - Shantanu Dukes MD
--- NOTE | 2025-06-18 07:01 | ANES.PROC ---
Anesthesia Procedures Procedure/Date: 06/18/25 Left interscalene nerve block for postoperative pain control Nerve Block ^: Nerve Block 1: Main Anesthesia: other (100 mcg fentanyl) Time Out Performed: Yes Consent: requested by attending/covering physician and from patient Laterality: Left Nerve block location: interscalene Anesthesia monitors applied: pulse oximetry, EKG, BP cuff and oxygen Nerve block position: supine Anesthetic Used: ropivicaine 0.5% Amount of anesthesia used (mL): 30 Ultrasound used to: recognize landmarks Nerve Stimulator Used?: Yes Interscalene/Femoral BLK: other needle (pjunk 4inch) Injection: neg aspiration of heme Patient Tolerated Procedure: well Complications: none Additional Comments: Decadron 4 mg added to block
--- NOTE | 2025-06-18 07:12 | PC.NURSE ---
0650 : LIANA performed timeout for left shoulder nerve block. Using ultrasound guidance 30 ml of ropivicaine injected . Patient tolerated well
[2025-06-18] MEDS: ceFAZolin 2,000 mg SDV 2000 MG IVP ×3 (07:18→23:11)
--- NOTE | 2025-06-18 08:49 | XRR_ITS ---
PROCEDURE INFORMATION: Exam: XR Left Shoulder Exam date and time: 06/18/2025 9:31 AM Age: 69 years old Clinical indication: Device placement; Joint replacement hardware; Prior surgery; Surgery date: Post-operative (0-2 days); Surgery type: Hemiarthroplasty TECHNIQUE: Imaging protocol: Radiologic exam of the left shoulder. Views: 2 or more views. COMPARISON: CT shoulder LT w con [id number] 05/16/2025 9:47 AM FINDINGS: Tubes, catheters and devices: Partially visualized cardiac pacer device and leads. Cervical spine fusion hardware. Bones/joints: Shoulder prosthesis/hemiarthroplasty in anatomic alignment. No fractures. Severe acromioclavicular osteoarthrosis. Soft tissues: Normal. XR/XR shoulder LT 1V [id number] IMPRESSION: Anatomic alignment of the shoulder prosthesis.
--- NOTE | 2025-06-18 09:00 | P.OP_ITS ---
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 Anesthesia: General With preoperative scalene block EBL: 40 cc Indications: Pramod is a 69-year-old white male was seen in the orthopedic clinic for debilitating left shoulder pain. He has had a known torn rotator cuff for quite some time now and had no repair of it at that time. There is no evidence that could be repaired at this time also. He is complaining of pain discomfort in his shoulder. He has had a previous total shoulder in the past on the right side. He just wishes to have pain controlled. Have offered him hemiar throplasty for pain control and maintaining range of motion and strength that he has now. I have offered him a total shoulder replacement as well as reverse total arthroplasty. After discussing all these in length he preferred to go with just a hemiarthroplasty for pain control at this time. Therefore all risk benefits treatment alternatives were discussed and he was agreeable to this at this time. Procedure: After obtaining written consent patient per skin block ministered preop holding area. Patient was then taken to the operating room placed the op table supine position general anesthetic administered. Once [place] was achieved patient placed up in beachchair position and position appropriately. He is padded out appropriately. His left shoulder and arm were prepped and draped usual fashion. Should be noted that a magnet was placed over his pacemaker on his left chest and covered with an Tegaderm. After surgical timeout standard anterior approach to the shoulder was done. Incision was made from just lateral to coracoid process down to just lateral axillary fold. Sharp dissected gone down subcutaneous tissues electrocautery used for hemostasis. Under blunt sharp dissection with Metzenbaum scissors the border between the deltoid and pectoralis major was identified and by digital palpation and stripping of the tissues exposure was done all the way down to the fascia over the rotator cuff. Conjoined tendon was identified and protected. Deep self- retaining retractors were placed. By palpation lateral edge of the subscapularis tendon was identified and divided longitudinally along its insertion point near the bicipital groove. This is then peeled back medially exposing the joint surface. Thinning of the rotator cuff and capsule were identified superiorly. Arm was externally rotated to expose the humeral head. Appropriate retractors placed. Subsequently templated the proximal humerus was done for cutting of the humeral head. Sagittal saw was then used to remove the humeral head. Further debridement of osteophytes up around the periphery of the proximal humerus was also done using a small osteotome as well as rongeur's. Once adequate debridement was achieved and exposure of the proximal humerus identified. Starting reamer was placed in the central portion of the exposed cancellous bone and driven on down the humeral shaft. These were then reamed on up by hand up to a size 15 going by 1 mm increments until good cortical bone was achieved. Subsequently rasping was done with trial components starting at a size 12 and going up to size 15 before good fit and fill was achieved. At this point a permanent size 15 humeral prosthesis was placed and impacted with appropriate positioning. Trial heads were then positioned on here and shoulders reduced posterior range of motion found to be stable. There is decided upon a 54 x 21 humeral head set at the D position was appropriate positioning and allow for adequate motion and stability in the shoulder. Trial components removed. Permanent size 54 head with 21 mm height was put together on the back table with the stem at the D position. This is then impacted on the Murray taper of the femoral component. Shoulder is reduced but range of motion found to be stable. Rotator cuff was then repaired with #5 Ethibond [id number] sutures. Should be noted multiple times during his procedure shoulders washed copious amounts of sterile irrigation through bulb lavage. At this point the retractor removed. Subcutaneous tissue reapproximated with 2-0 Vicryl interrupted sutures. Skin was closed skin rd. Wounds are clean and dry dressed with Xeroform gauze and sterile gauze dressing and OpSite. Patient is placed in abduction pillow sling awakened transferred to cover room stable condition
--- NOTE | 2025-06-18 12:00 | ANE.PACU2 ---
Inpatient post-anesthesia follow up: Airway intact: Yes Vital signs: Temperature 97.8 F Pulse Rate 69 Respiratory Rate 16 Blood Pressure 120/69 Pulse Oximetry 95 Oxygen Delivery Me thod Room Air Oxygen Flow Rate 2 Fraction of Inspir ed Oxygen Hydration adequate: Yes Nausea and vomiting: No Pain level: 1 Mental status: Baseline
[2025-06-18] MEDS: HYDROcodone-acetaminophen 5-325 mg Tablet PO (23:11)
[2025-06-19] MEDS: ceFAZolin 2,000 mg SDV 2000 MG IVP (06:21)
[2025-06-19 07:33] VITALS: BP 120/69; PULSE 69; RESP 16; TEMP 36.6; O2SAT 95
[2025-06-19] MEDS: HYDROcodone-acetaminophen 5-325 mg Tablet PO (08:38)
[2025-06-19 10:15] VITALS: BP 120/69; PULSE 69; RESP 16; TEMP 36.6; O2SAT 95
--- NOTE | 2025-07-10 11:24 | PM.DCS ---
Discharge Providers Date of Admission: 06/18/25 11:31 Date of Discharge: June 19, 2025 Attending Provider at Admission: Shantanu Dukes MD Attending Provider at Discharge: Shantanu Dukes MD Primary Care Provider: Jean Claude Toth MD Reason for Visit Reason for Visit: Z09 Brief History: Pramod is a 69-year-old white male was seen in the orthopedic clinic for debilitating left shoulder pain. 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 He was then offered surgical intervention studies he failed all conservative measures. There is a discussion about what type of prosthesis to do and he elected to have a hemiarthroplasty rather than a reverse total shoulder at this time. Hospital Course Hospital Course Patient was admitted on 06/18/2025 for hemiarthroplasty of his left shoulder. He tolerated this procedure well. He was held overnight for observation and pain control. By first postoperative day he is ready to be discharged home. Physical Exam Narrative: Patient's shoulder dressings are clear on the left side. He is neurovascularly intact. No other abnormalities noted Urinary Catheter Management: Rajput: Cath Placed During This Visit: yes, but has since been removed by the nurse Reason for Continuing Indwelling Catheter: Required Immobilization for Trauma or Surgery or Anesthesia Urinary Catheter Date of Insertion: 06/18/25 Urinary Catheter Time of Insertion: 07:29 Date Urinary Catheter Removed: 06/19/25 Time Urinary Catheter Discontinued: 06:32 Discharge Data Studies Completed and Pending Completed Studies During Hospitalization Category Date Time Status XR shoulder LT 1V [id number] Routine Exams 06/18/25 08:49 Completed Radiology Impressions Shoulder X-Ray 06/18/25 08:49 IMPRESSION: Anatomic alignment of the shoulder prosthesis. Vitals Last Vital Signs Temp 97.8 F 06/19/25 10:15 Pulse 69 06/19/25 10:15 Resp 16 06/19/25 10:15 BP 120/69 06/19/25 10:15 Pulse Ox 95 06/19/25 10:15 O2 Del Method Room Air 06/19/25 07:33 O2 Flow Rate 2 06/18/25 10:15 Discharge Plan Discharge Patient Disposition: Home Condition: Stable Prescriptions: Continued cholecalciferol (vitamin D3) 10 mcg (400 unit) capsule 10 mcg PO QAM vitamin B complex [B Complex-Vitamin B12] Tablet 1 tab PO DAILY melatonin 3 mg capsule 5 mg PO .HS rosuvastatin 10 mg tablet 10 mg PO QAM Qty: 90 3RF carvedilol 6.25 mg tablet 6.25 mg PO BID Qty: 180 3RF Entresto 49-51 mg tablet 1 tab PO BID Qty: 180 3RF Eliquis 5 mg tablet 5 mg PO BID Qty: 180 3RF tramadol 50 mg tablet 50 mg PO QID PRN (Reason: Pain) Qty: 120 4RF Rx Instructions: States taking 2 tablets twice daily hydrochlorothiazide 25 mg tablet 25 mg PO DAILY Rx Instructions: TAKE ONE TABLET BY MOUTH DAILY No Action meloxicam 15 mg tablet See Rx Instructions .ROUTE .COMPLEX Qty: 30 11RF Dose Instruction: TAKE ONE TABLET BY MOUTH DAILY with food Rx Instructions: TAKE ONE TABLET BY MOUTH DAILY with food Discharge Order = DC NOW: Discharge Order (Routine); Ordered 06/19/25 Ordered By: Shantanu Dukes Referrals: Shantanu Dukes MD [Physician, Orthopedics] - 07/04/25 11:15 am Patient Instructions: Hydrocodone/Acetaminophen (By mouth), Acute Wound Care (DC), Shoulder Arthroplasty (DC), Opioid Safety, Post Anesthesia Care, Patient Portal & Kana Instructions Activity Restrictions/Additional Instructions: Abduction pillow and sling at all times Sleep with head of bed elevated Ice and elevate often Move elbow wrist and hand daily of the left arm May shower with the dressing on Discharge Attestations Time Spent in Discharge Care*: less than 30 min Quality Metrics Clinical Quality Measures [ No reported AMI, CVA or VTE this stay] Coding Level of Care Code Acute Code for [facility]
== END 2025-06-19 10:16 | disposition home or self-care (01) ==
LOC: MEDSURG 11:34
PROVIDERS: Admitting Provider Orthopaedic Surgery; PCP Family Medicine; Visit Provider Orthopaedic Surgery
PROC: (CPT 23470; principal; 2025-06-18 07:00)
DX: M19.012 Primary osteoarthritis, left shoulder (principal); M75.102 Unspecified rotator cuff tear or rupture of left shoulder, not specified as traumatic; Z79.01 Long term (current) use of anticoagulants; I10 Essential (primary) hypertension; I48.91 Unspecified atrial fibrillation; Z95.810 Presence of automatic (implantable) cardiac defibrillator; E78.5 Hyperlipidemia, unspecified; Z85.048 Personal history of other malignant neoplasm of rectum, rectosigmoid junction, and anus; I25.2 Old myocardial infarction; Z87.891 Personal history of nicotine dependence
CPT/HCPCS: 64415; 23470; 51702; 73020; 97161; 97165; C1776 ×2; G0378; J0690; J1100; J2371; J2405; J2704; J3010; J3490; J7030; J9999

== ENCOUNTER → 2025-06-25 09:13 | Outpatient (BNVA) | payer MEDICARE, SELFPAY | PROVIDERS: PCP Family Medicine; Visit Provider Internal Medicine Cardiovascular Disease | DX: Z45.02 Encounter for adjustment and management of automatic implantable cardiac defibrillator (principal) | CPT/HCPCS: 93296 ==

== ENCOUNTER 2025-06-30 05:00 | Outpatient (RCR) | payer MEDICARE, SELFPAY | END 2025-07-30 23:59 | disposition home or self-care (01) | LOC: SPT 05:00 | PROVIDERS: PCP Family Medicine; Visit Provider Orthopaedic Surgery | DX: Z96.612 Presence of left artificial shoulder joint (principal); M25.512 Pain in left shoulder | CPT/HCPCS: 97110; 97140; 97161 ==

== ENCOUNTER → 2025-07-04 10:55 | Outpatient (BNVA) | payer MEDICARE, SELFPAY | PROVIDERS: PCP Family Medicine; Visit Provider Orthopaedic Surgery | DX: Z96.612 Presence of left artificial shoulder joint (principal) | CPT/HCPCS: 73030; 99024 ==

== ENCOUNTER → 2025-07-09 14:49 | Outpatient (BNVA) | payer MEDICARE, SELFPAY | PROVIDERS: PCP Family Medicine; Visit Provider Internal Medicine Cardiovascular Disease | DX: I48.0 Paroxysmal atrial fibrillation (principal); Z79.01 Long term (current) use of anticoagulants; I42.9 Cardiomyopathy, unspecified; I10 Essential (primary) hypertension; Z95.810 Presence of automatic (implantable) cardiac defibrillator; I25.2 Old myocardial infarction | CPT/HCPCS: 99214 ==